=== PATIENT | male | born 1970 | race African-American/Black ===

== ENCOUNTER → 2016-12-04 | Outpatient (CLI) | payer OTHER ==
--- NOTE | 2016-12-04 15:29 | MR ---
EXAMINATION TYPE: MR lumbar spine wo/w con DATE OF EXAM: 12/04/2016 2:44 PM COMPARISON: 04/22/2014 HISTORY: LBP, stiffness, LLE radic x 2 years, prior surgery October 2013 CONTRAST: The patient was injected with 20 mL intravenous MultiHance gadolinium contrast. Multiplanar, MultiSpin echo imaging of the lumbar spine was performed. L1-L2: Normal disc appearance without desiccation. No herniation, protrusion or disc bulging. No ca nal stenosis is present. Foramina are patent bilaterally. L2-L3: Severe degenerative disc desiccation with degenerative endplate marrow change. Postoperative c hanges of decompressive laminectomy. Recurrent disc herniation is noted with effacement of the ventra l thecal sac. No evidence for central stenosis . Bilateral neural foraminal encroachment right greate r than left. Grade 1 retrolisthesis of L2 on L3 of 4 mm. L3-L4: Normal disc appearance without desiccation. No herniation, protrusion or disc bulging. No ca nal stenosis is present. Foramina are patent bilaterally. L4-L5: Moderate disc desiccation noted. Broad-based posterocentral disc bulge noted with effacement o f the ventral thecal sac. Mild right lateral recess stenosis suggested. Facet joint arthropathy resul ting in left greater than right foraminal encroachment. No evidence for central stenosis. L5-S1: Moderate disc desiccation. Mild posterior disc bulge. Minimal effacement ventral thecal sac. N o evidence of disc herniation. Facet joint arthropathy resulting in moderate bilateral foraminal encr oachment. Lumbar segments are intact. No paraspinal masses are identified. Conus medullaris has a normal appe arance. No pathologic enhancement. IMPRESSION: 1. Degenerative disc disease as discussed. 2. Postoperative changes at L2-3 with recurrent disc herniation. 3. Disc bulging and foraminal encroachment as discussed.
== END | disposition home or self-care (01) ==
LOC: RADMRIMAIN 13:55
PROVIDERS: ATTEND Internal Medicine
DX: M51.36 Other intervertebral disc degeneration, lumbar region (principal); M51.26 Other intervertebral disc displacement, lumbar region; Z98.890 Other specified postprocedural states
CPT/HCPCS: 72158; A9577

== ENCOUNTER → 2017-04-10 | Outpatient (CLI) | payer OTHER ==
--- NOTE | 2017-04-10 08:28 | CT ---
EXAMINATION TYPE: CT lumbar spine wo con DATE OF EXAM: 04/10/2017 COMPARISON: NONE HISTORY: Low back pain x4 years. Hx of laminectomy in 2014. No prior. Scanned by: LS and CS. CT DLP: 1532.[address] of the lumbar spine was performed. Bone and soft tissue window settings are submitted as well as coronal and sagittal reconstructions. L1-L2: Normal disc space height. No disc herniation protrusion or central stenosis. No facet joint arthropathy. No evidence for foraminal encroachment. L2-L3: Marked degenerative disc space narrowing. Vacuum changes. Marked sclerosis of the L2 and L3 ve rtebral segments. Retrolisthesis L3 on L4 measuring 5.6 mm. Laminectomy changes however given superim posed hypertrophic change recurrent central stenosis is difficult to exclude. L3-L4: Decompressive laminectomy changes. Mild posterior disc bulge. No evidence for disc herniation or protrusion. No central stenosis. Foramina are patent bilaterally. L4-L5: Moderate degenerative disc space narrowing. Broad-based disc bulge posteriorly with effacement of the ventral thecal sac. Suspect bilateral lateral recess stenosis. Mild central stenosis difficul t to exclude. Facet joint arthropathy noted with bilateral foraminal encroachment seen. L5-S1: Moderate degenerative disc space narrowing. Circumferential disc bulge greatest posterior cent rally and towards the right where there is right lateral recess stenosis. Right foraminal encroachmen t identified. Also left-sided foraminal encroachment. No evidence for central stenosis. Normal alignm ent. No paraspinal masses are identified. Lumbar segments are free of fracture. IMPRESSION: 1. Multilevel degenerative disc disease and spondylosis. 2. Marked degenerative change at L2-3 with retrolisthesis of L2 on L3 and associated hypertrophic janet nge. Laminectomy changes identified at this level however it is difficult to exclude recurrent centra l stenosis. 3. Disc bulging at L4-5 and L5-S1 resulting in lateral recess stenosis as discussed. Mild central shimon nosis at L4-5 also difficult to exclude.
== END | disposition home or self-care (01) ==
LOC: RADCTMAIN 07:46
PROVIDERS: ATTEND Neurological Surgery
DX: M48.07 Spinal stenosis, lumbosacral region (principal); M43.16 Spondylolisthesis, lumbar region; M51.36 Other intervertebral disc degeneration, lumbar region; M47.816 Spondylosis without myelopathy or radiculopathy, lumbar region
CPT/HCPCS: 72131

== ENCOUNTER 2017-06-03 15:52 | Emergency (ER) | payer OTHER ==
[2017-06-03 16:12] VITALS: BP 189/87; PULSE 89; RESP 18; TEMP 98.5
--- NOTE | 2017-06-03 18:12 | ED ---
General Adult HPI - General Chief complaint: Neck Pain/Injury Stated complaint: Neck and shoulder Pain Time Seen by Provider: 06/03/17 17:48 Source: patient, RN notes reviewed Mode of arrival: ambulatory Limitations: no limitations - History of Present Illness Initial comments: Patient 47-year-old male with significant past medical history for chronic back and neck pain. Patient does admit that he's had increased neck pain over the last month. States that he has followed the family doctor who gave him [place] along with muscle relaxant. Patient s patient does admit that is experienced numbness tingling down to the fourth and fifth digits of the left hand. He states this comes and goes. Patient states she's been trying to follow up orthopedics is waiting for an appointment. He denies any other complaints or associated symptoms. Denies any injury or trauma. Patient denies any recent fever, chills, shortness of breath, chest pain, abdominal pain, nausea or vomiting, headaches or visual changes, or any other complaints. - Related Data Home Medications Medication Instructions Recorded Confirmed Dapagliflozin Propanediol [Farxiga] 10 mg PO DAILY 02/23/15 02/23/15 Losartan Potassium 100 mg PO DAILY 02/23/15 02/23/15 Pregabalin [Lyrica] 150 mg PO BID 02/23/15 02/23/15 Tamsulosin HCl [Flomax] 0.4 mg PO DAILY 02/23/15 02/23/15 metFORMIN HCL [Glucophage Xr] 500 mg PO DAILY 02/23/15 02/23/15 Previous Rx's Medication Instructions Recorded Ibuprofen [Motrin] 800 mg PO Q6HR PRN #20 tab 02/23/15 Dexamethasone 0.75 mg PO DIRECTED #12 tablet 06/03/17 Allergies Allergy/AdvReac Type Severity Reaction Status Date / Time azithromycin Allergy Unknown Verified 06/03/17 16:12 Review of Systems ROS Statement: Those systems with pertinent positive or pertinent negative responses have been documented in the HPI. ROS Other: All systems not noted in ROS Statement are negative. Past Medical History Past Medical History: Diabetes Mellitus, Hypertension History of Any Multi-Drug Resistant Organisms: None Reported Past Surgical History: Orthopedic Surgery Additional Past Surgical History / Comment(s): right hand carpel tunnel, right elbow, right shoulder 2011. Back surgery Past Psychological History: No Psychological Hx Reported Smoking Status: Never smoker Past Alcohol Use History: Occasional Past Drug Use History: Marijuana General Exam - General Exam Comments Initial Comments: General: The patient is awake and alert, in no distress, and does not appear acutely ill. Neck: The neck is supple, there is no tenderness or JVD. Cardiovascular: There is a regular rate and rhythm. No murmur, rub or gallop is appreciated. Respiratory: Lungs are clear to auscultation, respirations are non-labored, breath sounds are equal. No wheezes, stridor, rales, or rhonchi. Musculoskeletal: Patient shows full range of motion. Normal appearance of the cervical, thoracic, lumbar spine. No step-offs deformities appreciated. Patient shows good range of motion all areas. Strength 5/5. Sensation is intact. Neurological: A&O x 3. CN II-XII intact, There are no obvious motor or sensory deficits. Coordination appears grossly intact. Speech is normal. Skin: Skin is warm and dry and no rashes or lesions are noted. Psychiatric: Normal mood and affect. Limitations: no limitations Course Vital Signs 06/03/17 16:10 Temperature 98.5 F Pulse Rate 89 Respiratory 18 Rate Blood Pressure 189/87 O2 Sat by Pulse 98 Oximetry Medical Decision Making - Medical Decision Making Patient will be given steroid Dosepak. He does admit that he is taking this in the past. He was advised that it may affect his blood sugars. Patient also advised that he may use the Flexeril that he has at home to help him sleep at night. Advised to follow-up with orthopedics or family doctor for further evaluation and MRI. Patient has declined x-rays here in the ER. Patient advised return if any symptoms increase or worsen. Disposition Clinical Impression: Cervical radiculopathy Disposition: HOME SELF-CARE Condition: Good Instructions: Cervical Radiculopathy (ED) Additional Instructions: Please use medication as discussed. Please follow-up with orthopedic/family doctor in the next 2 days of symptoms have not improved. Please return to emergency room if the symptoms increase or worsen or for any other concerns. Prescriptions: Dexamethasone 0.75 mg PO DIRECTED #12 tablet Referrals: Santiago Alicia MD [Primary Care Provider] - 1-2 days Maik Barron MD [STAFF PHYSICIAN] - 1-2 days Time of Disposition: 18:10
== END 2017-06-03 18:27 | disposition home or self-care (01) ==
LOC: EC 15:52
DX: M54.12 Radiculopathy, cervical region (principal); I10 Essential (primary) hypertension; E11.9 Type 2 diabetes mellitus without complications; Z79.84 Long term (current) use of oral hypoglycemic drugs; Z79.899 Other long term (current) drug therapy; Z88.1 Allergy status to other antibiotic agents; Z98.890 Other specified postprocedural states
CPT/HCPCS: 99283

== ENCOUNTER → 2017-06-28 | Outpatient (CLI) | payer OTHER ==
--- NOTE | 2017-06-28 16:08 | MR ---
EXAMINATION TYPE: MR cervical spine wo con DATE OF EXAM: 06/28/2017 COMPARISON: NONE HISTORY: Neck pain TECHNIQUE: Multiplanar, multisequence images of the cervical spine were acquired. C2-C3: No disc herniation or canal stenosis. No foraminal encroachment. C3-C4: Mild degenerative disc disease. There is uncovertebral joint hypertrophy bilaterally. No Canal stenosis. Mild bilateral foraminal encroachment greater on the left. C4-C5: Moderate to severe degenerative disc disease with diffuse disc broad-based bulging or protrusi on, facet arthropathy and uncovertebral joint hypertrophy. There is moderate to severe bilateral fora rachel encroachment. Mild central stenosis. C5-C6: Severe degenerative disc disease. There is uncovertebral joint hypertrophy bilaterally. There is moderate bilateral foraminal encroachment. No canal stenosis or focal herniation. Anterior osteoph ytic spur noted. C6-C7: Severe degenerative disc disease with broad-based disc bulging. There is moderate to severe bi lateral foraminal encroachment greater on the right with uncovertebral joint hypertrophy and cervical spondylosis. Borderline to mild central stenosis. C7-T1: No evidence for degenerative disc disease. No disc bulge/herniation or protrusion. No Canal stenosis. Foramina are patent bilaterally. Cervical segments are intact. There is normal alignment. Cervical spinal cord is of normal signal. Craniovertebral junction relationships are within normal limits. Slight curvature the spine noted. There is a right thyroid nodule measuring 1.4 cm IMPRESSION: 1. Multilevel degenerative disc disease with the most marked findings at C4-5 C5-6 and C6-C7 with pos terior spondylosis, uncovertebral joint hypertrophy and disc bulging or protrusion resulting in signi ficant multilevel foraminal encroachment. 2. Mild central stenosis C4-5 and borderline central stenosis C6-C7. 3. 1.4 cm right thyroid nodule.
== END | disposition home or self-care (01) ==
LOC: RADMRIMAIN 15:01
PROVIDERS: ATTEND Internal Medicine
DX: M48.02 Spinal stenosis, cervical region (principal); M50.31 Other cervical disc degeneration, high cervical region; M47.812 Spondylosis without myelopathy or radiculopathy, cervical region; M53.82 Other specified dorsopathies, cervical region; M50.221 Other cervical disc displacement at C4-C5 level
CPT/HCPCS: 72141

== ENCOUNTER → 2017-07-10 | Outpatient (CLI) | payer OTHER ==
--- NOTE | 2017-07-10 15:34 | XR ---
EXAMINATION TYPE: XR lumbar spine with bend/flex DATE OF EXAM: 07/10/2017 CLINICAL HISTORY: pain COMPARISON: 07/01/2013 TECHNIQUE: Frontal, lateral, and oblique images of the lumbar spine are obtained. FINDINGS: There is new severe degenerative disc space narrowing with vacuum disc and endplate scleros is at the L2-3 level. The remaining levels are within normal limits. There is grade 1 retrolisthesis of L2 on L3 measuring 7.5 mm. Ventral and dorsal spur formation seen. Facet joint arthropathy without foraminal encroachment. No compression fractures identified. IMPRESSION: Severe degenerative disc disease with grade 1 retrolisthesis L2 on L3 as discussed above. ICD 10 NO FRACTURE, INITIAL EVALUATION
== END | disposition home or self-care (01) ==
LOC: RADXRMAIN 14:51
PROVIDERS: ATTEND Neurological Surgery
DX: M43.16 Spondylolisthesis, lumbar region (principal); M51.36 Other intervertebral disc degeneration, lumbar region
CPT/HCPCS: 72114

== ENCOUNTER → 2017-07-10 | Outpatient (CLI) | payer OTHER ==
[2017-07-10 16:13] LABS: INR 1.1 (<1.2); Partial Thromboplastin Time 23.5 sec (22.0-30.0); Prothrombin Time 10.3 sec (9.0-12.0)
[2017-07-10 16:26] LABS: Anion Gap 9 mmol/L; Blood Urea Nitrogen 14 mg/dL (9-20); Carbon Dioxide 27 mmol/L (22-30); Chloride 103 mmol/L (98-107); Potassium 4.5 mmol/L (3.5-5.1); Sodium 139 mmol/L (137-145)
[2017-07-10 16:33] LABS: Appearance,Urine Clear (Clear); Bilirubin,Urine Negative (Negative); Blood,Urine Negative (Negative); Color,Urine Yellow; Glucose,Urine (UA) 4+ (Negative); Ketones,Urine Negative (Negative); Leukocyte Esterase,Urine Negative (Negative); PH, Urine 5.5 (5.0-8.0); Protein,Urine Negative (Negative); Specific Gravity,Urine 1.015 (1.001-1.035); Urobilinogen,Urine <2.0 mg/dL (<2.0)
[2017-07-10 16:50] LABS: Basophils % (A) 1 %; Eosinophils # (A) 0.2 k/uL (0-0.7); Eosinophils % (A) 4 %; HCT 38.3 % (39.0-53.0); HGB 12.5 gm/dL (13.0-17.5); Lymphocytes # (A) 1.7 k/uL (1.0-4.8); Lymphocytes % (A) 34 %; MCH 30.3 pg (25.0-35.0); MCHC 32.6 g/dL (31.0-37.0); Monocytes # (A) 0.4 k/uL (0-1.0); Monocytes % (A) 8 %; Neutrophils # (A) 2.5 k/uL (1.3-7.7); Neutrophils % (A) 50 %; Platelet Count 263 k/uL (150-450); RBC 4.12 m/uL (4.30-5.90); RDW 14.3 % (11.5-15.5)
[2017-07-11 17:12] LABS: Hemoglobin A1C 10.6 % (4.0-6.0)
[2017-07-11 17:39] LABS: Iron Saturation 28.04 (15.00-50.00)
== END | disposition home or self-care (01) ==
LOC: LABWHC1 15:34
PROVIDERS: ATTEND Internal Medicine
DX: Z01.812 Encounter for preprocedural laboratory examination (principal); D64.9 Anemia, unspecified; E11.9 Type 2 diabetes mellitus without complications; I10 Essential (primary) hypertension; M54.5 Low back pain
CPT/HCPCS: 36415; 80051; 81003; 82565; 83036; 83540; 83550; 84520; 85025; 85610; 85730

== ENCOUNTER → 2018-07-15 | Outpatient (CLI) | payer OTHER ==
[2018-07-15 16:12] LABS: Basophils % (A) 0 %; Eosinophils # (A) 0.2 k/uL (0-0.7); Eosinophils % (A) 3 %; HCT 40.6 % (39.0-53.0); Lymphocytes # (A) 2.3 k/uL (1.0-4.8); Lymphocytes % (A) 33 %; MCH 30.2 pg (25.0-35.0); MCV 94.4 fL (80.0-100.0); Mean Platelet Volume 7.8; Monocytes # (A) 0.4 k/uL (0-1.0); Monocytes % (A) 6 %; Neutrophils # (A) 3.9 k/uL (1.3-7.7); Neutrophils % (A) 55 %; Platelet Count 264 k/uL (150-450); RDW 14.7 % (11.5-15.5); WBC 7.1 k/uL (3.8-10.6)
[2018-07-16 01:15] LABS: Albumin 4.5 g/dL (3.80-4.90); Albumin/Globulin Ratio 1.61 (1.60-3.17); Anion Gap 8.2 mmol/L (4.00-12.00); Carbon Dioxide 28.8 mmol/L (21.6-31.8); Globulin 2.8 g/dL (1.6-3.3); Potassium 4.2 mmol/L (3.5-5.5); Total Bilirubin 0.4 mg/dL (0.3-1.2); Total Protein 7.3 g/dL (6.2-8.2)
[2018-07-16 01:22] LABS: T4, Free (Free Thyroxine) 1.4 ng/dL (0.80-1.80)
[2018-07-16 01:45] LABS: Hemoglobin A1C 10.2 % (4.0-6.0)
== END | disposition home or self-care (01) ==
LOC: LABWHC1 15:36
PROVIDERS: ATTEND Internal Medicine
DX: E11.9 Type 2 diabetes mellitus without complications (principal); E29.1 Testicular hypofunction; R53.83 Other fatigue
CPT/HCPCS: 36415; 80053; 83036; 84402; 84403; 84439; 84443; 84481; 85025

== ENCOUNTER → 2018-12-04 | Outpatient (CLI) | payer OTHER ==
[2018-12-04 17:57] LABS: African American GFR (CKD) 101.3 (60.0-200.0); Albumin 4.2 g/dL (3.80-4.90); Albumin/Globulin Ratio 1.62 (1.60-3.17); Calcium 9.1 mg/dL (8.7-10.3); Globulin 2.6 g/dL (1.6-3.3); Potassium 4.4 mmol/L (3.5-5.5); Total Bilirubin 0.5 mg/dL (0.3-1.2); Total Protein 6.8 g/dL (6.2-8.2)
[2018-12-04 20:58] LABS: Hemoglobin A1C 7.7 % (4.0-6.0)
== END | disposition home or self-care (01) ==
LOC: LABWHC1 14:41
PROVIDERS: ATTEND Internal Medicine
DX: E11.9 Type 2 diabetes mellitus without complications (principal)
CPT/HCPCS: 36415; 80053; 83036

== ENCOUNTER → 2019-07-10 | Outpatient (CLI) | payer OTHER ==
[2019-07-11 00:05] LABS: Chol/HDL Ratio 2.33; LDL Cholesterol,Calculated 72.6 mg/dL (0.0-131.0); VLDL Calculation 11.4 mg/dL (5.00-40.00)
[2019-07-11 02:41] LABS: Hemoglobin A1C 7.9 % (4.0-6.0)
== END | disposition home or self-care (01) ==
LOC: LABWHC1 15:21
PROVIDERS: ATTEND Internal Medicine
DX: I10 Essential (primary) hypertension (principal); E11.9 Type 2 diabetes mellitus without complications; E29.1 Testicular hypofunction; N40.0 Benign prostatic hyperplasia without lower urinary tract symptoms; Z12.5 Encounter for screening for malignant neoplasm of prostate
CPT/HCPCS: 80061; 84403; 83036; 36415; G0103

== ENCOUNTER → 2019-10-30 | Outpatient (CLI) | payer OTHER ==
[2019-10-30 15:19] LABS: HCT 37.7 % (39.0-53.0); HGB 12.4 gm/dL (13.0-17.5); MCH 31.5 pg (25.0-35.0); MCHC 32.9 g/dL (31.0-37.0); MCV 95.7 fL (80.0-100.0); Mean Platelet Volume 8.5; Platelet Count 243 k/uL (150-450); RBC 3.94 m/uL (4.30-5.90); RDW 13.9 % (11.5-15.5); WBC 4.3 k/uL (3.8-10.6)
[2019-10-30 15:54] LABS: Eosinophils # (M) 0.26 k/uL (0-0.7); Hypochromasia (M) Present; Lymphocytes # (M) 1.76 k/uL (1.0-4.8); Monocytes # (M) 0.47 k/uL (0-1.0); Neutrophils # (M) 1.81 k/uL (1.3-7.7); Neutrophils % (M) 42 %; Nucleated Red Blood Cells 0 /100 WBC (0-0); Total Cells Counted 100
[2019-10-30 17:00] LABS: Erythrocyte Sedimentation Rate 18 mm/hr (0-15)
[2019-10-30 18:30] LABS: African American GFR (CKD) 100.6 (60.0-200.0); Anion Gap 5.3 mmol/L (4.00-12.00); C Reactive Protein 1.6 mg/dL (0.0-0.8); Carbon Dioxide 26.7 mmol/L (21.6-31.8); Non-African American GFR(CKD) 86.8 (60.0-200.0); Potassium 4.3 mmol/L (3.5-5.5)
== END | disposition home or self-care (01) ==
LOC: LABWHC1 14:25
PROVIDERS: ATTEND Podiatrist Foot & Ankle Surgery
DX: L03.031 Cellulitis of right toe (principal); L02.611 Cutaneous abscess of right foot
CPT/HCPCS: 36415; 80048; 85025; 85652; 86140

== ENCOUNTER → 2019-12-02 | Outpatient (CLI) | payer OTHER ==
[2019-12-02 10:55] LABS: African American GFR (CKD) >90 (>60 ml/min/1.73 sqM); Anion Gap 5 mmol/L; Blood Urea Nitrogen 18 mg/dL (9-20); Calcium 8.7 mg/dL (8.4-10.2); Carbon Dioxide 27 mmol/L (22-30); Chloride 106 mmol/L (98-107); Glucose 219 mg/dL (74-99); Non-African American GFR(CKD) >90 (>60 ml/min/1.73 sqM); Potassium 4.4 mmol/L (3.5-5.1); Sodium 138 mmol/L (137-145)
--- NOTE | 2019-12-02 16:49 | MR ---
EXAMINATION TYPE: MR foot RT wo/w con DATE OF EXAM: 12/02/2019 COMPARISON: None HISTORY: L97.512 Chronic Ulcer Rt Toe CONTRAST: Standard multiplanar, multisequence MRI departmental protocol utilizing 11.5 mL intravenous Gadavist gadolinium contrast. FINDINGS: The second digit of the right foot demonstrates anterior subcutaneous irregularity and plan tar sided soft tissue edema from the distal toe to the level of the proximal phalanx. There is T2 hyp erintense bone marrow edema and loss of cortex of the second digit distal phalanx (501:20, 901:17). Some mild soft tissue edema of the great toe is also seen on the plantar aspect, with no bony abnorma lity. Degenerative changes of the first digit metatarsal phalangeal and interphalangeal joints are se en with subchondral cysts. IMPRESSION: Osteomyelitis of the second digit distal phalanx associated with ulceration. No evidence of abscess.
== END | disposition home or self-care (01) ==
LOC: RADMRIMAIN 09:21
PROVIDERS: ATTEND Podiatrist Foot & Ankle Surgery
DX: L97.512 Non-pressure chronic ulcer of other part of right foot with fat layer exposed (principal)
CPT/HCPCS: 80048; 36415; 73720; A9585

== ENCOUNTER → 2019-12-15 | Outpatient (CLI) | payer OTHER ==
--- NOTE | 2019-12-15 13:52 | MM ---
Reason for exam: clinical finding. MG Diagnostic Mammo w CAD DENISHA Bilateral CC and MLO view(s) were taken. There are scattered fibroglandular densities. Retroareolar increased density. These results were verbally communicated with the patient and result sheet given to the patient on 12/15/19. ASSESSMENT: Incomplete: need additional imaging evaluation, BI-RAD 0 RECOMMENDATION: Ultrasound of the left breast.
--- NOTE | 2019-12-15 13:56 | USB ---
Reason for exam: additional evaluation requested from abnormal screening. US Breast Workup Limited LT Left limited breast ultrasound including focal area of concern, retroareolar and axilla demonstrates a 5.1 x 4.4 x 1.3cm irregular, solid, hypoechoic lesion at the retroareola. Scanned right breast for comparison. These results were verbally communicated with the patient and result sheet given to the patient on 12/15/19. ASSESSMENT: Suspicious, BI-RAD 4 RECOMMENDATION: Ultrasound core biopsy of the left breast. Manage patient on a clinical basis. Called Dr. Alicia's office with mammographic findings and has scheduled an appointment for the patient for 12/24/19 at 3:[address] Amezquita. PRELIMINARY REPORT CALLED AND FAXED TO DR. AMEZQUITA ON 12/15/19.
== END | disposition home or self-care (01) ==
LOC: RADMAMWWP 08:25
PROVIDERS: ATTEND Internal Medicine
DX: R92.8 Other abnormal and inconclusive findings on diagnostic imaging of breast (principal); N63.20 Unspecified lump in the left breast, unspecified quadrant
CPT/HCPCS: 77066

== ENCOUNTER → 2019-12-18 | Day surgery (SDC) | payer OTHER ==
[2019-12-16 11:47] VITALS: BMI 32.5
[~2019-12-18] MED LIST: LIDOCAINE 1% INJ 10MG/ML (20 ML MDV) SQ ONE
[2019-12-18 14:26] VITALS: BP 138/75; PULSE 78; RESP 16; TEMP 98.1
--- NOTE | 2019-12-21 12:32 | IR ---
EXAMINATION TYPE: IR cvc insert >=5 years DATE OF EXAM: 12/18/2019 COMPARISON: NONE CLINICAL HISTORY: Infection. Need for long-term antibiotics. ORDNANCE ENGINEER: Dr. Laurel Tenorio PROCEDURE: The procedure was discussed with the patient. The risks, complications, benefits, and alternatives we re discussed and any questions were answered. Informed consent was obtained. Maximal barrier technique utilized. Patient placed supine and the skin overlying the left basilic vei n was localized with ultrasound and noted to be compressible and patent. An ultrasound image was obt ained and submitted on the patient's chart. Sterile technique utilized with the ultrasound machine. T he skin overlying was prepped and draped and Lidocaine used for local anesthesia. Access was gained t o the vein under ultrasound guidance with a 21 gauge needle and a 0.018 inch wire was advanced. A ski n jeison was made with a scalpel. Access site was dilated with Peel-Away sheath. 5 FR single lumen cath eter tailored to the appropriate length of 44 cm and advanced such that the distal tip is at the cavo atrial junction. Spot image was obtained verifying PICC placement. Catheter was fixed to the skin and a sterile dressing was placed following hemostasis. Catheter was aspirated and flushed with saline. Patient was discharged from the radiology department in stable condition without media complication. Fluoro time: 0.3 minutes Fluoroscopic images obtained: 20 IMPRESSION: Status post ultrasound-guided and fluoroscopic-guided PICC placement, ready for use.
== END ==
LOC: CATHCVL 14:09
PROVIDERS: ATTEND Radiology Diagnostic Radiology
DX: M86.9 Osteomyelitis, unspecified (principal)
CPT/HCPCS: 36573; C1751; C1769; J2001

== ENCOUNTER → 2020-03-28 | Outpatient (CLI) | payer OTHER ==
[2020-03-28 08:26] VITALS: BP 142/89; PULSE 89; RESP 18; TEMP 98.8
--- NOTE | 2020-03-28 09:06 | P.PAINCN ---
History of Present Illness - Reason for Consult Consult date: 03/28/20 - History of Present Illness This is a 49-year-old patient referred by Dr. Alicia with a chief complaint of low back pain primarily right sided low back pain going into buttocks back of his legs to his knees. Patient has a long-standing low back pain history including a laminectomy at L2-L3 and doesn't 14 a spinal fusion L2-L3 in 2018. 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 Pain is located primarily in the upper buttock area with radiation to the knees described as sharp and stabbing. Pain is made worse rising from a seated position and going upstairs. Going downstairs is not a problem. There are no alleviating factors. There is no temporal nature of the pain. Pain Saroj 8 out of 10, at best a 5 out of 10, at its worst a 10 out of 10. As mentioned above patient is an multiple surgeries at L2-L3 which did help with this pain but now his pain is coming back. He has tried numerous medications including Zanaflex, meloxicam, Motrin, diclofenac, as well as Toradol shots every few weeks which have provided no benefit. He did mention he takes his Beth here and there are which does help with this pain and is wondering if he can have his medications. He has been put on tramadol 50 mg 4 times a day but this did not help him at all. In terms of injections he does mention an epidural many years ago which did help. He has done physical therapy prior to the surgery but he had to quit due to the pain. As also tried lidocaine patches and massage with no help. Patient also denies new-onset weakness, bowel/bladder incontinence, or any other signs or symptoms of cauda equina syndrome. There are no signs of acute intoxication, and no indications of medication diversion or overuse. Patient notes that pain worsens significantly with [], and improves with [] In addition to above, 13-point review of systems is also negative for chest pain, shortness of breath, changes in vision, changes in hearing, new onset weakness, abdominal pain, diarrhea, extreme fatigue, malaise, fever, skin changes, homicidal or suicidal ideation, or bowel or bladder incontinence. Physical exam: Vital Signs: Reviewed in EMR GENERAL: Well appearing, in no acute distress PSYCH: Mood and affect is appropriate. Awake, alert, and oriented SKIN: Skin color, texture, turgor normal, no rashes or lesions HEENT: Normocephalic, atraumatic. EOM intact CV: No pedal edema RESP: Respirations are unlabored, no audible wheezing GI: Abdomen non-distended MUSCULOSKELETAL: Bilateral upper and lower extremity strength is normal and symmetric. No atrophy or tone abnormalities are noted. Rises from chair with difficulty Lumbar spine: Straight leg raising in the sitting position is negative for radicular pain. No pain to palpation over the lumbar spine and paraspinous muscles. Positive for pain with facet loading and back extension/rotation. Decreased flexion and extension due to pain Buttocks: Has pain to palpation over the PSIS, Ranjan test is positive bilaterally Extremities: Peripheral joint ROM is full and pain free without obvious instability or laxity in all four extremities. No edema or skin discolorations noted. Gait: Gait is antalgic NEUR: Bilateral upper and lower extremity coordination and muscle stretch reflexes are physiologic and symmetric. Negative clonus. No loss of sensation is noted. Cranial nerves are grossly intact. Imaging: Lumbar MRI 2017 L2-L3: Severe degenerative disc desiccation with degenerative endplate marrow change. Postoperative changes are decompressive laminectomy. Recurrent disc herniation is noted with effacement of the ventral thecal sac. Bilateral neural foraminal encroachment right greater than left. Grade 1 retrolisthesis of L2 on L3 for 4 mm. L3 her for: Essentially normal. L4-L5: Moderate disc desiccation noted. Broad-based posterior central disc bulge with noted effacement of the ventral thecal sac. Mild right lateral recess stenosis suggested. Facet joint arthropathy resulting in left greater than right neural foraminal encroachment. No evidence of central canal stenosis. L5-S1 moderate disc herniation. Mild posterior disc bulge. Minimal effacement of the ventral thecal sac. Facet joint arthropathy resulting in moderate bilateral foraminal encroachment Assessment: 1. Bilateral sacroiliitis 2. Lumbar spondylosis Plan: 1. Explanation: Diagnoses, prognoses, and multiple treatment options including but not limited to physical therapy, interventional therapies, medication management and surgery were discussed with the patient and all questions were answered to the patient's satisfaction. 2. Investigations: Severe lumbar MRI in the future if sacroiliac joint injections are helpful 3. Counseling: The patient was counseled for 3 minutes on EXERCISE. Specifically, the patient was instructed regarding the importance of exercise in the context of both chronic pain and overall health. 4. Procedures: Proceed with bilateral sacroiliac joint injection 5. Consultations: None 6. Medications: She was asking for Purcell as this is helping with work. I advised him to go back to his primary care doctor as he was prescribing her tramadol on the past 7. Disposition: For sacroiliac joint injections. If these do not help and we will consider ordering lumbar MRI to assess for any nerve impingement or facet hypertrophy Past Medical History Past Medical History: Diabetes Mellitus Additional Past Medical History / Comment(s): infection in bone of 2nd toe rt foot-6 WEEKS AGO-HAD IV ANTIBIOTICS FOR 8 WEEKS- STATES INFECTION RESOLVED. BACK AND SHOULDER PAIN History of Any Multi-Drug Resistant Organisms: None Reported Past Surgical History: Back Surgery, Orthopedic Surgery Additional Past Surgical History / Comment(s): right hand carpel tunnel, right elbow, right shoulder 2011. Back surgery Past Anesthesia/Blood Transfusion Reactions: No Reported Reaction Smoking Status: Former smoker - Past Family History Mother Family Medical History: No Reported History Medications and Allergies Home Medications Medication Instructions Recorded Confirmed Type Ibuprofen [Motrin] 800 mg PO Q6HR PRN #20 tab 02/23/15 03/28/20 Rx Tamsulosin HCl [Flomax] 0.4 mg PO DAILY 02/23/15 03/28/20 History metFORMIN HCL [Glucophage Xr] 500 mg PO DAILY 02/23/15 03/28/20 History Cannabidiol (Cbd) [Epidiolex] 1 dose TOPICAL DAILY PRN 12/16/19 03/28/20 History Meloxicam 15 mg PO DAILY 12/16/19 03/28/20 History Multivitamins, Thera [Multivitamin 1 tab PO DAILY 12/16/19 03/28/20 History (formulary)] glipiZIDE [Glucotrol] 10 mg PO AC-BID 12/16/19 03/28/20 History tiZANidine [Zanaflex] 4 mg PO Q8HR PRN 03/23/20 03/28/20 History traMADol HCL [Ultram] 50 mg PO DAILY PRN 03/23/20 03/28/20 History valACYclovir [Valtrex] 500 mg PO BID 03/23/20 03/28/20 History Baclofen 10 mg PO TID 03/28/20 03/28/20 History Diclofenac Sodium [Voltaren] 75 mg PO BID 03/28/20 03/28/20 History Allergies Allergy/AdvReac Type Severity Reaction Status Date / Time azithromycin Allergy Nausea & Verified 03/23/20 14:36 Vomiting PQRS Measure Charge Sheet Measure #226: Tobacco Use: Screen & Cessation Intervention: Pt not a tobacco user Measure #111: Pneumonia Vaccination: Pneumococcal vaccine NOT administered or previously given Measure #47: Advance Care Plan: Advance care planning discussed & documented, pt chose/unable to give Measure #412: Opioid Treatment Agreement: No documentation of signed opioid treatment agreement Measure #408: Opioid Therapy Follow-up Evaluation: Patient had NO f/u eval minimum every 3 months during opioid therapy Measure #131: Pain Assessment & Follow-up: Pain positive & plan documented, Follow-up scheduled Measure #431: Unhealthy Alcohol Use Preventative Care & Scrn: Patient not identified as an unhealthy alcohol user PQRS Narrative: Smoking Status Never smoker Pain Intensity [Back] 6 Scale Used Numeric (1 - 10) Hx Alcohol Use (MH) Yes Home Medications: Ambulatory Orders Ibuprofen [Motrin] 800 mg PO Q6HR PRN #20 tab 02/23/15 Tamsulosin HCl [Flomax] 0.4 mg PO DAILY 02/23/15 metFORMIN HCL [Glucophage Xr] 500 mg PO DAILY 02/23/15 Cannabidiol (Cbd) [Epidiolex] 1 dose TOPICAL DAILY PRN 12/16/19 Meloxicam 15 mg PO DAILY 12/16/19 Multivitamins, Thera [Multivitamin (formulary)] 1 tab PO DAILY 12/16/19 glipiZIDE [Glucotrol] 10 mg PO AC-BID 12/16/19 tiZANidine [Zanaflex] 4 mg PO Q8HR PRN 03/23/20 traMADol HCL [Ultram] 50 mg PO DAILY PRN 03/23/20 valACYclovir [Valtrex] 500 mg PO BID 03/23/20 Baclofen 10 mg PO TID 03/28/20 Diclofenac Sodium [Voltaren] 75 mg PO BID 03/28/20
== END | disposition home or self-care (01) ==
LOC: PNWHC3 08:06
PROVIDERS: ATTEND Anesthesiology
DX: M47.816 Spondylosis without myelopathy or radiculopathy, lumbar region (principal); M46.1 Sacroiliitis, not elsewhere classified; Z88.1 Allergy status to other antibiotic agents; Z79.891 Long term (current) use of opiate analgesic; Z79.899 Other long term (current) drug therapy; Z79.84 Long term (current) use of oral hypoglycemic drugs
CPT/HCPCS: 99211

== ENCOUNTER 2020-04-14 12:44 | Day surgery (SDC) | payer OTHER ==
[2020-04-12 13:38] VITALS: BMI 33.1
[2020-04-14 13:06] VITALS: TEMP 98.9
[2020-04-14 13:12] LABS: Glucose,Whole Blood 297 mg/dL (75-99)
[2020-04-14] MEDS ORDERED: INSULIN ASPART (NovoLOG) 100 UNIT/ML VIAL SQ ONE (13:20)
[2020-04-14] MEDS ORDERED: ROPIVACAINE 5MG/ML 20ML VIAL ONE (13:34)
[2020-04-14] MEDS ORDERED: TRIAMCINOLONE ACETONIDE 40 MG/ML 1 ML VIAL ONE (13:34)
[2020-04-14] MEDS ORDERED: IOPAMIDOL M200 10 ML VIAL ONE (13:34)
--- NOTE | 2020-04-14 13:49 | P.PCN ---
Date of Procedure: 04/14/20 Description of Procedure: Preoperative diagnoses: bilateral sacroilitis Postoperative diagnoses: bilateral sacroilitis. Procedure: bilateral sacroiliac joint steroid injection under fluoroscopic guidance. Surgeon: Jhon Peraza MD Anesthesia: [2 mL of 1% lidocaine and moderate sedation per hospital guidelines], Fluoroscopy was used for the procedure and fluoroscopic images were saved to the radiology portion of the patient's chart. EBL: None Procedure indication: The patient had a history of severe chronic low back pain, diagnosed with sacroiliitis unresponsive to conservative treatment. Procedure description: The patient was seen and identified in the preoperative holding area, risks and benefits and alternative of the procedure and possible complications discussed with the patient, and patient agreed with the preceding, patient signed the consent, an IV was started, and vital signs were monitored and were stable throughout the procedure, patient was placed in the prone position on table and the lumbosacral area was prepped and draped with a sterile fashion, vital signs were closely monitored during the procedure, the fluoroscopy camera was placed in the contralateral oblique view on the bilateral sacroiliac joint and the lower part of the joint was identified . Then the skin and subcutaneous tissue was anesthetized using 2 mL of 1% lidocaine then a 22- gauge Quincke-type spinal needle advanced slowly under fluoroscopy and placed in the posterior and inferior border of the right sacroiliac joint, placement confirmed with AP and lateral view, and after appropriate needle placement confirmed and after negative aspiration for heme, 1 mL of Isovue 200 was injected revealing intra-articular spread. Then a solution consisting of 2 ml of ropivacaine 0.5% and 20 mg of Kenalog injected after negative aspiration, no paresthesia during the injection, no resistance to injection, and the needle was removed. The procedure was then repeated on the left side. Total of 40 mg of Kenalog was used for the procedure. Patient tolerated the procedure well without any complication. The patient was returned to supine position after the back was cleaned and a Band-Aid applied, the patient was transported to recovery room in stable condition and monitored for 30 minutes before being discharged home. The patient will follow up for repeat procedure in 2-4 weeks
[2020-04-14 14:21] LABS: Glucose,Whole Blood 247 mg/dL (75-99)
[2020-04-14 14:26] VITALS: BP 168/94; PULSE 83; RESP 18
--- NOTE | 2020-04-14 14:28 | FL ---
EXAMINATION TYPE: FL guided pain mgmt statistic DATE OF EXAM: 04/14/2020 FLUOROSCOPY Fluoroscopy time of 5 seconds was used during bilateral SI joint injection. 3 image/s document/s the procedure.
== END 2020-04-14 14:29 | disposition home or self-care (01) ==
LOC: ORPAIN 12:44
PROVIDERS: ATTEND Anesthesiology
DX: G89.29 Other chronic pain (principal); M46.1 Sacroiliitis, not elsewhere classified; E11.9 Type 2 diabetes mellitus without complications; Z88.1 Allergy status to other antibiotic agents
CPT/HCPCS: J3301; Q9966; J2795; G0260

== ENCOUNTER 2020-05-26 06:34 | Day surgery (SDC) | payer OTHER ==
[2020-05-23 09:07] VITALS: BMI 31.8
[~2020-05-26 06:34] MED LIST changes: +LACTATED RINGERS 1,000 ML IV SCH; -LIDOCAINE 1% INJ 10MG/ML (20 ML MDV) SQ ONE
[2020-05-26 06:52] VITALS: RESP 16; TEMP 97.6
[2020-05-26 06:54] LABS: Glucose,Whole Blood 166 mg/dL (75-99)
[2020-05-26] MEDS ORDERED: methylPREDNISolone ACETATE 40 MG/ML 1 ML VIAL ONE (07:23)
[2020-05-26] MEDS ORDERED: ROPIVACAINE 5MG/ML 20ML VIAL ONE (07:23)
--- NOTE | 2020-05-26 07:36 | P.PCN ---
Date of Procedure: 05/26/20 Procedure(s) Performed: Procedure= bilateral sacroiliac joints steroid injection under fluoroscopy guidance (fluoroscopy image stored on file in the radiology Department ) Preoperative diagnosis= 1-sacroiliitis 2-lumbar facet arthropathy Postoperative diagnosis=Same as preop Diagnosis . Complication = none Condition= stable Anesthesia= local infiltration with her primary care 0.5% 4 mL. Indication for the procedure= patient complaining of low back pain , examination was positive for severe tenderness over the sacroiliac joints bilaterally and patient diagnosed with sacroiliitis, for this reason he was good candidate for sacroiliac joint steroid injection. Description of the procedure= procedure risk and benefits discussed with the patient, including but not limited, risk of infection and bleeding, and ALLERGIC reaction to the medication and not complete pain relief and patient agreed with the preceding patient taken to the operating room, placed in prone position or standard monitors applied to the patient then back prepped with chlorhexidine 3 times , Then under strict sterile technique, first I did the right sacroiliac joint the which was identified under fluoroscopy guidance been local infiltration of the skin and subcu interstitial with lidocaine 1% then 22-gauge Quincke Needle advanced slowly under fluoroscopy and placed in the right sacroiliac joint needle placement confirmed with AP and oblique and lateral view and after appropriate needle placement confirmed and after negative aspiration, or heme , then Ropivacaine 0.5% 3 mL, and 20 mg of Depo-Medrol mixed together and injected in the right sacroiliac joint after negative aspiration patient tolerated the procedure well without any complication. Then the left sacroiliac joint steroid injection done under strict sterile technique local infiltration of the skin and subcu interstitial at the location of the left sacroiliac joint then a 22-gauge Quincke Needle advanced slowly under fluoroscopy time placed in the left sacroiliac joint, needle placement confirmed with AP and oblique and lateral view then after appropriate needle placement confirmed and after negative aspiration 0.5% Marcaine 3 mL and 20 mg of Depo-Medrol injected in the left sacroiliac joint after negative aspiration patient tolerated the procedure well that any complications and she will follow up in clinic 3 weeks
--- NOTE | 2020-05-26 07:47 | FL ---
EXAMINATION TYPE: FL guided pain mgmt statistic DATE OF EXAM: 05/26/2020 CLINICAL HISTORY: Bilateral sacroiliac joint pain. TECHNIQUE: Fluoroscopy. COMPARISON: None. FINDINGS: Fluoroscopic guidance was provided during pain relief procedure performed by Dr. Chu . A total of 10 seconds of fluoroscopic time was utilized during the procedure and two spot images a re acquired. Images acquired shows needle localization at level of bilateral sacroiliac joints. IMPRESSION: As Above.
[2020-05-26 07:57] VITALS: BP 161/99; PULSE 74
== END 2020-05-26 08:06 | disposition home or self-care (01) ==
LOC: ORPAIN 06:34
PROVIDERS: ATTEND Specialist
DX: M46.1 Sacroiliitis, not elsewhere classified (principal); M47.896 Other spondylosis, lumbar region; E11.9 Type 2 diabetes mellitus without complications; Z88.1 Allergy status to other antibiotic agents
CPT/HCPCS: J1030; J2795; G0260

== ENCOUNTER → 2020-06-08 | Outpatient (CLI) | payer OTHER ==
[2020-06-08 08:11] VITALS: BP 161/90; PULSE 86; RESP 18; TEMP 98.2
--- NOTE | 2020-06-08 08:25 | P.PN ---
Subjective Progress Note Date: 06/08/20 This is a 50-year-old gentleman with history of 2 back surgeries with hardware and lumbar fusion the last one was done in 2018. The patient was doing well after the surgery up until a few months ago when he started to feel pain across his lower back with radiation to the thighs posteriorly and cramps in his lower back and in his hamstrings. The patient has been using marijuana to help his pain and occasionally tramadol or [place] from his primary care physician. He received bilateral sacroiliac joint steroid injection in our clinic which gave him short period of pain relief however his pain is still intense in his lower back. The patient still works full-time. Patient denies new-onset weakness, bowel/bladder incontinence, or any other signs or symptoms of cauda equina syndrome. There are no signs of acute intoxication, and no indications of medication diversion or overuse. In addition to above, 13-point review of systems is also negative for chest pain, shortness of breath, changes in vision, changes in hearing, new onset weakness, abdominal pain, diarrhea, extreme fatigue, malaise, fever, skin changes, homicidal or suicidal ideation, or bowel or bladder incontinence. Vital Signs: Reviewed in EMR Gen: AAOx3, NAD HEENT: PERRLA,hearing grossly normal Pulm: resp unlabored Neck: supple, trachea midline Neuro exam of the lower extremities: Normal muscle strength bilaterally Straight leg raising test: Kit's test: Range of motion of the lumbar spine: Facet loading test: Tenderness in the paravertebral musculature: Positive tenderness in the lumbar paravertebral musculature more on the left side than the right side Neuro: CN II-XII grossly intact, Imaging: Reviewed in EMR/chart Assessment: Lumbar postlaminectomy pain syndrome Lumbar spondylosis without myelopathy Plan: 1. Explanation: Opioid and psychological risk scores were reviewed. Diagnoses, prognoses, and multiple treatment options including but not limited to physical therapy, interventional therapies, adjuvant medical therapies, narcotic medication therapies, and surgery were discussed with the patient and all questions were answered to the patient's satisfaction. 2. Opioid agreement: Signed with the patient and the patient is warned not to use opioids while driving or before driving and not to combine opioids with benzodiazepines or alcohol. 3. Counseling: The patient was counseled extensively on SMOKING CESSATION, BODY MASS INDEX, EXERCISE. Specifically, the patient was instructed regarding the importance of smoking cessation, obesity, and exercise in the context of both chronic pain and overall health. 4. Procedures: Schedule for diagnostic lumbar medial branch block beneath the fusion level. 5. Consultations: None 6. Investigations: None 7. Medications: None. The patient uses marijuana. 8. Disposition: Return to the above-mentioned procedure as soon as possible 9. Maps were reviewed and were appropriate. Objective - Vital Signs Vital signs: Vital Signs Temp 98.2 F 06/08/20 08:07 Pulse 86 06/08/20 08:07 Resp 18 06/08/20 08:07 BP 161/90 06/08/20 08:07 Pulse Ox 99 06/08/20 08:07
== END | disposition home or self-care (01) ==
LOC: PNWHC3 08:00
PROVIDERS: ATTEND Anesthesiology
DX: M96.1 Postlaminectomy syndrome, not elsewhere classified (principal); M47.816 Spondylosis without myelopathy or radiculopathy, lumbar region
CPT/HCPCS: 99211

== ENCOUNTER → 2020-06-24 | Day surgery (SDC) | payer OTHER ==
[2020-06-23 12:54] VITALS: BMI 30.7
[~2020-06-24] MED LIST changes: +LIDOCAINE 1% (10MG/ML) FOR IV START INTRADERMA ONE; +MIDAZOLAM 2 MG/2 ML VIAL ONE; +ROPIVACAINE 5MG/ML 20ML VIAL ONE; +TRIAMCINOLONE ACETONIDE 40 MG/ML 1 ML VIAL ONE
[2020-06-24 13:35] VITALS: TEMP 97.8
[2020-06-24 13:44] LABS: Glucose,Whole Blood 120 mg/dL (75-99)
--- NOTE | 2020-06-24 14:25 | P.PCN ---
Date of Procedure: 06/24/20 Surgeon: Yeimi Salvador Pathology: none sent Condition: stable Disposition: PACU Description of Procedure: PREOPERATIVE DIAGNOSIS : 1- Lumbar spondylosis with Facet Arthropathy without myelopathy . 2- Lumber degenerative disc disease3-postlaminectomy pain syndrome POSTOPERATIVE DIAGNOSIS: Same as above PROCEDURE: Diagnostic bilateral L4 -5 , and L5-S1 medial branch block under fluoroscopy Physician: Yeimi Salvador MD ANESTHESIA: Local with 1% lidocaine; and IV moderate conscious sedation by the anesthesia Department . EBL: Negligible COMPLICATION: None. PROCEDURE INDICATION: Chronic low back pain secondary to Facet arthropathy unresponsive to conservative treatment. PROCEDURE DESCRIPTION: the patient was seen and identified in the preop holding area , risks and benefits and possible complications of the procedure and alternatives were discussed with the patient, and the patient agreed to proceed with the procedure and signed the consent. IV was started and vital signs monitored during the procedure and fluoroscopy was used to maximize the benefit and accuracy of the needle placement, sedation was given to decrease patient anxiety, patient was taken to the procedure room and placed in prone position vital signs monitored. The patient was brought into the procedure room and placed in prone position. Skin was prepped with Chloraprep and draped in a sterile manner. Lidocaine 1% was used to numb the skin up at the target points that were chosen as follows: at the L5-S1 level which corresponds to the dorsal ramus of L5 the target points were at the superior medial aspect of the sacral ala on each side of the spine on the AP view of fluoroscopy, and for the L3 and L4 medial branches the target points were the connection between the transverse process and the superior to go process of L4 and L5 respectively on the oblique views of fluoroscopy. I used 22-gauge 3.5 inch Quincke spinal needles for this procedure and after contacting bon at the target points mentioned above I injected 1 mL of a mixture of 5 mls Ropivacaine 0.5% PF and 20 mg of Kenalog . Patient tolerated procedure well. At the end of the procedure the needles removed and a bandage applied after the skin was cleaned with the cleaning solution. patient was then taken to the recovery room in stable condition and monitored in the recovery room for 20-30 minutes and discharged home in stable condition after discharge criteria met . A copy of the needle placement picture was saved to the C-arm machine.
[2020-06-24 14:29] VITALS: RESP 17
--- NOTE | 2020-06-24 14:40 | FL ---
Fluoroscopy History: bilateral lumbar facet 9 secs. fl. time [address] Salvador
[2020-06-24 14:41] VITALS: BP 170/90; PULSE 85
== END ==
LOC: ORPAIN 13:16
PROVIDERS: ATTEND Anesthesiology
DX: G89.29 Other chronic pain (principal); M47.816 Spondylosis without myelopathy or radiculopathy, lumbar region; M51.36 Other intervertebral disc degeneration, lumbar region; M96.1 Postlaminectomy syndrome, not elsewhere classified; E11.9 Type 2 diabetes mellitus without complications; Z88.1 Allergy status to other antibiotic agents; Z79.899 Other long term (current) drug therapy; Z79.84 Long term (current) use of oral hypoglycemic drugs; Z79.1 Long term (current) use of non-steroidal anti-inflammatories (NSAID); Z79.891 Long term (current) use of opiate analgesic
CPT/HCPCS: 64493; 64494; J2250; J3301; J2795

== ENCOUNTER 2020-07-16 15:28 | Emergency (ER) | payer OTHER ==
[2020-07-16] MEDS ORDERED: KETOROLAC 15 MG/ML 1 ML VIAL IM STA (15:53)
[2020-07-16] MEDS ORDERED: LIDOCAINE 5% PATCH TOPICAL STA (15:53)
[2020-07-16] MEDS ORDERED: DEXAMETHASONE SOD PHOSPHATE 10 MG/ML 1 ML VIAL IM STA (15:54)
[2020-07-16] MEDS ORDERED: CYCLOBENZAPRINE 10 MG TAB PO STA (15:54)
[2020-07-16] MEDS ORDERED: HYDROmorphone 1 MG/ML 1 ML SYRINGE IM STA ×2 (16:36→17:39)
--- NOTE | 2020-07-16 16:54 | ED ---
Back Pain HPI - General Chief Complaint: Back Pain/Injury Stated Complaint: Back pain Time Seen by Provider: 07/16/20 15:34 Source: patient Limitations: no limitations - History of Present Illness Initial Comments: 50-year-old male with history of chronic back pain presents to emergency Department with a chief complaint of back pain. Patient reports receiving spine injections since February which have been working well. States the most 2 recent injections were in the SI joint. He states the last injection was about one week ago which caused him no significant improvement in symptoms. He states the pain seems to be exacerbated with bilateral lumbar radiculopathy. States the pain is exacerbated with ambulation left and right rotation. He denies saddle anesthesia, urinary retention with overflow incontinence or bowel incontinence. Denies any injury to the back. States he was prescribed Lyrica and [place] by his primary care physician with no significant improvement in symptoms. He does report history of lumbar fusion 3 years ago. - Related Data Home Medications Medication Instructions Recorded Confirmed Tamsulosin HCl [Flomax] 0.4 mg PO DAILY 02/23/15 06/24/20 metFORMIN HCL [Glucophage Xr] 500 mg PO BID 02/23/15 06/24/20 traMADol HCL [Ultram] 50 mg PO DAILY PRN 03/23/20 06/24/20 Albuterol Inhaler [Ventolin Hfa 1 puff INHALATION DIRECTED PRN 04/12/20 06/24/20 Inhaler] Cyclobenzaprine [Flexeril] 10 mg PO BID PRN 04/12/20 06/24/20 Multivit-Min/Folic/Vit K/Lycop 1 each PO DAILY 04/12/20 06/24/20 [Men's Multivitamin Tablet] Naproxen 500 mg PO BID PRN 04/12/20 06/24/20 Glimepiride(Unknown Dose) 1 PO DAILY 06/23/20 Liraglutide [Victoza 2-Cecil] 1.8 mg SQ DAILY 06/23/20 06/24/20 Previous Rx's Medication Instructions Recorded Lidocaine 5% Patch [Lidoderm] 1 patch TOPICAL DAILY #6 patch 07/16/20 Allergies Allergy/AdvReac Type Severity Reaction Status Date / Time erythromycin base Allergy Unknown Verified 07/16/20 15:32 Childhood Review of Systems ROS Statement: Those systems with pertinent positive or pertinent negative responses have been documented in the HPI. ROS Other: All systems not noted in ROS Statement are negative. Past Medical History Past Medical History: Diabetes Mellitus Additional Past Medical History / Comment(s): infection in bone of 2nd toe rt foot-HAD IV ANTIBIOTICS FOR 8 WEEKs STATES INFECTION RESOLVED (NOVEMBER 2019), BACK AND SHOULDER PAIN, History of Any Multi-Drug Resistant Organisms: None Reported Past Surgical History: Back Surgery, Orthopedic Surgery Additional Past Surgical History / Comment(s): right hand carpel tunnel, right elbow, right shoulder 2011. Back surgery, PAIN CLINIC PROCEDURES, Past Anesthesia/Blood Transfusion Reactions: No Reported Reaction Past Psychological History: No Psychological Hx Reported Smoking Status: Former smoker Past Alcohol Use History: Occasional Past Drug Use History: Marijuana - Past Family History Mother Family Medical History: No Reported History General Exam Limitations: no limitations General appearance: alert, in no apparent distress, obese Head exam: Present: atraumatic, normocephalic, normal inspection Eye exam: Present: normal appearance, PERRL, EOMI Pupils: Present: normal accommodation ENT exam: Present: normal exam, normal oropharynx, mucous membranes moist Neck exam: Present: normal inspection, full ROM. Absent: tenderness Respiratory exam: Present: normal lung sounds bilaterally. Absent: respiratory distress Cardiovascular Exam: Present: regular rate, normal rhythm, normal heart sounds GI/Abdominal exam: Present: soft. Absent: distended, tenderness, guarding, rebound, rigid Extremities exam: Present: normal inspection, full ROM, normal capillary refill. Absent: tenderness Back exam: Present: normal inspection, full ROM, tenderness (Tenderness near the SI joints bilaterally). Absent: CVA tenderness (R), CVA tenderness (L), muscle spasm Neurological exam: Present: alert, oriented X3 Psychiatric exam: Present: normal affect, normal mood Skin exam: Present: warm, dry, intact, normal color Course Vital Signs 07/16/20 15:30 Temperature 97.5 F L Pulse Rate 89 Respiratory 16 Rate Blood Pressure 156/59 O2 Sat by Pulse 99 Oximetry Medical Decision Making - Medical Decision Making 50-year-old male presents emergency Department with a chief complaint of back pain. This is acute on chronic back pain. No red flags. No cauda equina concerns. Patient given Toradol, Lidoderm patch, Flexeril, Decadron, Dilaudid. On reevaluation, patient reports improvement in symptoms. Patient given a prescription of Lidoderm patches. He will follow-up with his primary care physician. Also advised him to follow-up with an grievance and appeals specialist. Return parameters discussed the patient was understanding and agreeable. Case discussed with Disposition Clinical Impression: Strain of lumbar region, Mechanical back pain Disposition: HOME SELF-CARE Condition: Stable Instructions (If sedation given, give patient instructions): Acute Low Back Pain (ED) Additional Instructions: Follow-up with orthopedic recycling specialist. Continue taking your prescribed medication. Return to emergency department if symptoms worsen. Prescriptions: Lidocaine 5% Patch [Lidoderm] 1 patch TOPICAL DAILY #6 patch Is patient prescribed a controlled substance at d/c from ED?: No Referrals: Caren Mars DO [Primary Care Provider] - 1-2 days Nicholas Rivera DO [Doctor of Osteopathic Medicine] - 1-2 days Time of Disposition: 17:41
[2020-07-16 18:07] VITALS: BP 132/81; PULSE 67; RESP 17; TEMP 97.9
== END 2020-07-16 18:07 | disposition home or self-care (01) ==
LOC: EC 15:28
DX: S39.012A Strain of muscle, fascia and tendon of lower back, initial encounter (principal); G89.29 Other chronic pain; M54.9 Dorsalgia, unspecified; E11.9 Type 2 diabetes mellitus without complications; Z79.899 Other long term (current) drug therapy; Z79.84 Long term (current) use of oral hypoglycemic drugs; Z88.1 Allergy status to other antibiotic agents; Z87.891 Personal history of nicotine dependence; Z98.1 Arthrodesis status; X58.XXXA Exposure to other specified factors, initial encounter
CPT/HCPCS: 99283; 96372 ×4; J1100; J1170; J1885

== ENCOUNTER → 2020-08-10 | Outpatient (CLI) | payer OTHER ==
--- NOTE | 2020-08-11 02:41 | MR ---
EXAMINATION TYPE: MR pelvis wo con DATE OF EXAM: 08/10/2020 COMPARISON: None HISTORY: Back and bilateral leg pain. Multiplanar multiecho imaging of the pelvis was performed without contrast. FINDINGS: Proximal femurs appear intact. Hip joint spaces are fairly normal. There is no evidence of any signif icant hip joint effusion. There is no evidence of avascular necrosis. Intertrochanteric femurs appear normal. The acetabula are intact. Sacroiliac joints appear normal. There is tiny amount of free fluid in the pelvis. The bladder distends smoothly. There is no evidence of perirectal mass. Sacrum and coccyx appear intact. The segments have normal alignment. Lower lumba r spine is intact. There is small posterior disc bulging at L4-5 and L5-S1. There is posterior disc h erniation and spur formation at L3-4 with encroachment on the spinal canal. This area is not optimall y visualized. There is probably some L3-4 bony spinal stenosis. There are some postsurgical changes w ith metal artifact in the mid lumbar spine. There is no evidence of soft tissue mass. I see no dilated bowel in the pelvis. IMPRESSION: Spondylotic changes in the partly visualized lower lumbar spine with disc space narrowing at L3-4 and probable spinal stenosis. Tiny amount of free fluid in the pelvis. No pelvic fracture. Hip joints are fairly normal. No evidenc e of avascular necrosis.
== END | disposition home or self-care (01) ==
LOC: RADMRIMAIN 21:25
PROVIDERS: ATTEND Nurse Practitioner Family
DX: M48.061 Spinal stenosis, lumbar region without neurogenic claudication (principal); M47.816 Spondylosis without myelopathy or radiculopathy, lumbar region
CPT/HCPCS: 72195

== ENCOUNTER → 2021-03-21 | Outpatient (CLI) | payer OTHER ==
--- NOTE | 2021-03-21 12:18 | NM ---
EXAMINATION TYPE: NM stress cardiolite complete DATE OF EXAM: 03/21/2021 COMPARISON: NONE HISTORY: Presurgical clearance. History of diabetes and tobacco use in the past along with asthma. TECHNIQUE: After the intravenous administration of 9.47 mCi Tc 99m Sestamibi - Cardiolite resting SP ECT images acquired 45 minutes post injection. The patient received 0.4mg Lexiscan, 25.8 mCi Tc 99m Sestamibi - Stress images obtained [address] injection FINDINGS: Review of stress and rest SPECT images demonstrates no distinct perfusion abnormality. Gated analysi s shows normal wall motion with an estimated left ventricular ejection fraction of 55 %. IMPRESSION: No scintigraphic evidence for reversible ischemia.
--- NOTE | 2021-03-21 13:56 | EST ---
EXERCISE STRESS AGE: 50 SEX: M HT: 6'3" WT: 250 lbs. PROTOCOL: Lexiscan STAGE: NA DURATION OF EXERCISE: NA HEART RATE REST: 83 BLOOD PRESSURE REST: 168/99 MAXIMUM HEART RATE ACHIEVED: 95 MAXIMUM BLOOD PRESSURE: 169/104 85% MPHR: 143 100% MPHR: 168 METS: NA INDICATIONS: Pre-surgical CLINICAL INFORMATION: Baseline rhythm is sinus mechanism, rate of 83, normal axis and intervals, normal echocardiogram. Baseline blood pressure 168/99 mmHg. Patient received an injection of Lexiscan. Electrocardiograph monitoring revealed no evidence of diagnostic ischemic ST deviation. Cardiolite was injected per protocol. CONCLUSION: 1. Nondiagnostic electrocardiograph stress testing. 2. Nuclear images will be reported separately. MMODL / IJN: [id number] /
== END | disposition home or self-care (01) ==
LOC: RADNMMAIN 08:37
PROVIDERS: ATTEND Family Medicine
DX: Z01.818 Encounter for other preprocedural examination (principal); E11.9 Type 2 diabetes mellitus without complications; J45.909 Unspecified asthma, uncomplicated; Z72.0 Tobacco use
CPT/HCPCS: 93017; 78452; A9500

== ENCOUNTER 2021-11-22 23:57 | Emergency (ER) | payer OTHER ==
[2021-11-23 00:02] VITALS: RESP 18; TEMP 98
[2021-11-23] MEDS ORDERED: methylPREDNISolone SOD SUCCI 125 MG/2 ML VIAL IM STA (00:39)
[2021-11-23] MEDS ORDERED: HYDROmorphone 1 MG/ML 1 ML SYRINGE IM STA (00:39)
[2021-11-23] MEDS ORDERED: ORPHENADRINE 30 MG/ML 2 ML VIAL IM STA (00:39)
[2021-11-23 01:07] LABS: Glucose,Whole Blood 195 mg/dL (70-110)
--- NOTE | 2021-11-23 01:18 | ED ---
Back Pain HPI - General Chief Complaint: Back Pain/Injury Stated Complaint: leg pain, back pain Time Seen by Provider: 11/23/21 00:27 Source: patient, family, RN notes reviewed Limitations: no limitations - History of Present Illness Initial Comments: This is a pleasant 51-year-old male history of chronic back pain and recurrent sciatica. Patient states that he had surgery back in 2020. Patient states that at that time he had sciatic nerve irritation down the back of his right leg. Patient states he is gone through physical therapy for this. In fact, he states his last bout of physical therapy once yesterday. She states that he went home and ended up stepping down and then had shooting pain into his right buttock and down his right leg. Patient denies any problems with bowel movements or urination. No urinary retention. No urinary or bowel incontinence. No constipation. No fever or chills. No IV drug abuse. Patient states that movement exacerbates the pain. Physician does alleviate somewhat. Patient apparently went to [facility] this morning and had pain medication ordered there. Patient was subsequently discharged. [facility] er he states the pain seems to come back again. Patient also states he received a dose of corticosteroids there. Patient is diabetic. No headache, no fever or chills, no changes in vision or hearing, no sore throat or difficulty with speech, no neck pain, no chest pain or shortness of breath, no abdominal pain, no nausea or vomiting, no changes in urination or bowel movements, no skin rashes or lesions. MD Complaint: back pain - Related Data Home Medications Medication Instructions Recorded Confirmed Tamsulosin HCl [Flomax] 0.4 mg PO DAILY 02/23/15 06/24/20 metFORMIN HCL [Glucophage Xr] 500 mg PO BID 02/23/15 06/24/20 traMADol HCL [Ultram] 50 mg PO DAILY PRN 03/23/20 06/24/20 Albuterol Inhaler [Ventolin Hfa 1 puff INHALATION DIRECTED PRN 04/12/20 06/24/20 Inhaler] Cyclobenzaprine [Flexeril] 10 mg PO BID PRN 04/12/20 06/24/20 Multivit-Min/Folic/Vit K/Lycop 1 each PO DAILY 04/12/20 06/24/20 [Men's Multivitamin Tablet] Naproxen 500 mg PO BID PRN 04/12/20 06/24/20 Glimepiride(Unknown Dose) 1 PO DAILY 06/23/20 Liraglutide [Victoza 2-Cecil] 1.8 mg SQ DAILY 06/23/20 06/24/20 Previous Rx's Medication Instructions Recorded Lidocaine 5% Patch [Lidoderm] 1 patch TOPICAL DAILY #6 patch 07/16/20 Cyclobenzaprine [Flexeril] 10 mg PO TID PRN #20 tab 11/23/21 methylPREDNISolone Dose Pack 4 mg PO DIRECTED #21 tab 11/23/21 [Medrol Dose Pack] oxyCODONE HCL/ACETAMINOPHEN 1 tab PO Q6HR PRN 3 Days #12 tab 11/23/21 [Percocet 7.5-325 mg] Allergies Allergy/AdvReac Type Severity Reaction Status Date / Time erythromycin base Allergy Unknown Verified 11/23/21 00:02 Childhood Review of Systems ROS Statement: Those systems with pertinent positive or pertinent negative responses have been documented in the HPI. ROS Other: All systems not noted in ROS Statement are negative. Past Medical History Past Medical History: Diabetes Mellitus Additional Past Medical History / Comment(s): infection in bone of 2nd toe rt foot-HAD IV ANTIBIOTICS FOR 8 WEEKs STATES INFECTION RESOLVED (NOVEMBER 2019), BACK AND SHOULDER PAIN, History of Any Multi-Drug Resistant Organisms: None Reported Past Surgical History: Back Surgery, Orthopedic Surgery Additional Past Surgical History / Comment(s): right hand carpel tunnel, right elbow, right shoulder 2011. Back surgery, PAIN CLINIC PROCEDURES, Past Anesthesia/Blood Transfusion Reactions: No Reported Reaction Past Psychological History: No Psychological Hx Reported Smoking Status: Former smoker Past Alcohol Use History: Occasional Past Drug Use History: Marijuana - Past Family History Mother Family Medical History: No Reported History General Exam Limitations: no limitations General appearance: alert, in distress Head exam: Present: atraumatic, normocephalic, normal inspection Eye exam: Present: normal appearance, PERRL, EOMI. Absent: scleral icterus, conjunctival injection, periorbital swelling ENT exam: Present: normal exam, mucous membranes moist, normal external ear exam Neck exam: Present: normal inspection, full ROM. Absent: tenderness, meningismus, lymphadenopathy Respiratory exam: Present: normal lung sounds bilaterally. Absent: respiratory distress, wheezes, rales, rhonchi, stridor Cardiovascular Exam: Present: regular rate, normal rhythm, normal heart sounds. Absent: systolic murmur, diastolic murmur, rubs, gallop, clicks GI/Abdominal exam: Present: soft, normal bowel sounds. Absent: distended, tenderness, guarding, rebound, rigid Extremities exam: Present: normal inspection, full ROM (Full range of motion with increased pain), normal capillary refill. Absent: tenderness, pedal edema, joint swelling, calf tenderness Back exam: Present: normal inspection, paraspinal tenderness (Right lumbar paraspinal area and into the right buttock area), other (No break in skin integrity. No bony point tenderness. No erythema. No rash or lesion). Absent: full ROM (Limited by pain), tenderness, CVA tenderness (R), vertebral tenderness, rash noted Neurological exam: Present: alert, oriented X3, CN II-XII intact, reflexes normal, other (Gait is slow and guarded). Absent: motor sensory deficit (Straight leg raise positive on the right) Psychiatric exam: Present: normal affect, normal mood Skin exam: Present: warm, dry, intact, normal color. Absent: rash, cyanosis, diaphoretic, erythema, urticaria, vesicles, petechiae, pallor, mottled, abrasion Course Vital Signs 11/22/21 23:58 Temperature 98 F Pulse Rate 83 Respiratory 18 Rate Blood Pressure 193/96 O2 Sat by Pulse 100 Oximetry - Reevaluation(s) Reevaluation #1: 11/23/21 01:56 Medical record is reviewed Symptoms are improved here in the emergency department Patient is informed of results and questions answered Patient in no distress Medical Decision Making - Medical Decision Making Patient presents with symptoms consistent with right-sided sciatica. Patient has no evidence of cauda equina syndrome. -There are no red flags for concerning back pathology. Specifically: -No history of cancer, this is not a mass effect, MRI not indicated. -No anticoagulation, this is not a bleed. -No fevers, no IVDU, this is not an infectious process. -No trauma, no bony pain, x-rays are not indicated. -With a normal neuro exam, and no urinary or bowel retention or incontinence, there is no clinical sign of motor defect or cauda equina - MRI is not indicated at this point. -No pulsating abdominal mass or risk factors for AAA. -Pain is relieved with rest, which is also less concerning. -I do not believe that x-rays or emergent MRI is indicated at this time. -We will treat symptomatically and discharge home with follow up instructions. -Stretching/strengthening exercise given to patient and they will be referred to physical therapy Patient is diabetic, we'll have him monitor his sugars closely. I do not believe the patient needs any imaging at this time. Patient does have a back specialist out of [facility]. Patient has been under the care of a neurosurgeon. Patient has been going to physical therapy. Patient may need an MRI if symptoms continue.We'll have him follow-up there. Patient was given a short course of acetaminophen/oxycodone. Patient was given a Medrol Dosepak. Muscle relaxer added. This released in stable condition. Patient was told to return to the ER for any signs or symptoms worsen. Told to return immediately if any other problems arise. All questions answered. Treatment plan discussed. Patient in agreement Every effort has been made to ensure accuracy of this dictation. However, due to the limitations of electronic medical records and dictation devices, errors in charting still occur. Criminal Court Judge Dr. Mckeon - Lab Data Lab Results 11/23/21 Range/Units 01:06 POC Glucose (mg/dL) 195 H (70-110) mg/dL POC Glu Vice President Payment ID Jess Galarza Disposition Clinical Impression: Right sided sciatica Disposition: HOME SELF-CARE Condition: Stable Instructions (If sedation given, give patient instructions): Sciatica (ED) Additional Instructions: Follow-up with your child's physician as directed. Bring your child back to the emergency department immediately if any symptoms worsen or new symptoms develop. Return if any other problems arise. Is patient prescribed a controlled substance at d/c from ED?: Yes When asked, does pt state using other controlled substances?: No If prescribed controlled substance>3 days was MAPS reviewed?: Prescribed <3 Days If opioid is for acute pain is fill amount 7 days or less?: Yes If Rx opioid, was Start Talking consent form obtained?: Yes Referrals: Caren Mars DO [Primary Care Provider] - 11/23/21 Time of Disposition: 01:57
[2021-11-23] MEDS ORDERED: KETOROLAC 15 MG/ML 1 ML VIAL IM STA (01:55)
[2021-11-23 02:25] VITALS: BP 174/88; PULSE 76
== END 2021-11-23 02:26 | disposition home or self-care (01) ==
LOC: EC 23:57
DX: M54.41 Lumbago with sciatica, right side (principal); E11.9 Type 2 diabetes mellitus without complications; F12.90 Cannabis use, unspecified, uncomplicated; Z87.891 Personal history of nicotine dependence; Z79.84 Long term (current) use of oral hypoglycemic drugs
CPT/HCPCS: 96372 ×6; 99283 ×2; J2360; J2930; J1170; J1885; 36415

== ENCOUNTER → 2022-01-22 | Outpatient (CLI) | payer OTHER ==
--- NOTE | 2022-01-23 13:39 | US ---
EXAMINATION TYPE: US arterial LE single level DATE OF EXAM: 01/22/2022 2:26 PM CLINICAL HISTORY: I73.9 PERIPHERAL VASCULAR DISEASE, UNSPECIFIED. Doppler Waveforms: Right: Multiphasic Left: Multiphasic Ankle-Brachial Indices: Right: 1.49 Left: 1.63 Toe Brachial Indices: Right: 0.60 Left: 0.60 IMPRESSION: 1. Borderline low TBI 2. Elevated HELENA can be associated with noncompressible vasculature and indicate atherosclerotic calci fications consider follow-up CTA or dedicated arteriogram.
== END | disposition home or self-care (01) ==
LOC: RADUSWWP 13:57
PROVIDERS: ATTEND Podiatrist Foot & Ankle Surgery
DX: I70.202 Unspecified atherosclerosis of native arteries of extremities, left leg (principal)
CPT/HCPCS: 93922

== ENCOUNTER → 2022-02-02 | Outpatient (CLI) | payer OTHER ==
--- NOTE | 2022-02-02 16:35 | MR ---
EXAMINATION TYPE: MR lumbar spine wo/w con DATE OF EXAM: 02/02/2022 COMPARISON: Prior lumbar MRI dated 12/04/2016 HISTORY: Lumbar disc degeneration TECHNIQUE: Multiplanar, multisequence images of the lumbar spine were acquired without and with 11 mL intravenou s Gadavist gadolinium contrast. L1-L2: Normal disc appearance without desiccation. No herniation, protrusion or disc bulging. No ca nal stenosis is present. Foramina are patent bilaterally. L2-L3: There is extensive artifact present. No definite foraminal encroachment. There is facet arthro joana change suspected. L3-L4: Artifact is present. No evident disc herniation. L4-L5: Posterior broad-based disc bulge causes anterior mass effect on the thecal sac. There is facet arthropathy with hypertrophy ligamentum flavum causing some posterior lateral mass effect on the the kathy sac. Circumferential extension of endplate disc complex encroaches upon the foramen greater on th e left than on the right, there is artifact level. L5-S1: Facet arthropathy changes present. Posterior disc bulge similar to prior exam, there is contac t the anterior thecal sac and possibly S1 nerve roots. There is abnormal signal at the level of the r ight neural foramen, lateral recess region, some abnormal enhancement is present, there may be granul ation tissue, difficult to exclude sequestered fragment versus enhancement along the nerve root Circu mferential extension of endplate disc complex encroaches on the neural foramina bilaterally similar t o prior exam. There is been interval posterior fusion L3-4 Jimmy susceptibility artifact is present which somewhat limits evaluation. Spinal curvature is noted. No evident spinal stenosis. Laminectomy changes are valencia spected. There is multilevel spondylosis. The conus is at T12-L1 shows an unremarkable appearance. IMPRESSION: Postop changes. There is extensive artifact. Degenerative disc disease, multilevel foraminal encroach ment, facet arthropathy. There is abnormal signal at the level of the L5 nerve root on the right as d escribed
== END | disposition home or self-care (01) ==
LOC: RADMRIMAIN 09:03
PROVIDERS: ATTEND Neurological Surgery
DX: M51.36 Other intervertebral disc degeneration, lumbar region (principal); M47.816 Spondylosis without myelopathy or radiculopathy, lumbar region
CPT/HCPCS: 72158; A9585

== ENCOUNTER 2023-09-03 06:59 | Day surgery (SDC) | payer OTHER ==
[2023-09-02 09:52] VITALS: BMI 29.3
[~2023-09-03 06:59] MED LIST changes: -LACTATED RINGERS 1,000 ML IV SCH; -LIDOCAINE 1% (10MG/ML) FOR IV START INTRADERMA ONE; +LIDOCAINE 1% (10MG/ML) FOR IV START INTRADERMA PRN; -MIDAZOLAM 2 MG/2 ML VIAL ONE; -ROPIVACAINE 5MG/ML 20ML VIAL ONE; -TRIAMCINOLONE ACETONIDE 40 MG/ML 1 ML VIAL ONE
[2023-09-03 07:26] VITALS: TEMP 98
[2023-09-03 07:27] LABS: Glucose,Whole Blood 128 mg/dL (70-110)
[2023-09-03] MEDS: LACTATED RINGERS 1,000 ML IV SCH (07:27)
[2023-09-03] MEDS ORDERED: LIDOCAINE 2% (PF) 20 MG/ML 5 ML VIAL ONE (07:53)
[2023-09-03] MEDS ORDERED: PROPOFOL 10 MG/ML 20 ML VIAL IV ONE (07:53)
--- NOTE | 2023-09-03 08:01 | P.GSHP ---
History of Present Illness H&P Date: 09/03/23 Chief Complaint: GERD, screening 53-year-old male here for upper and lower endoscopy. Patient was slight drop in hemoglobin he states. Some fatigue. Mild heartburn. Due for colon cancer screening. No rectal bleeding or melena. Past Medical History Past Medical History: Asthma, Diabetes Mellitus Additional Past Medical History / Comment(s): low Hgb,hx infection in bone of 2nd toe rt foot-(NOVEMBER 2019), BACK AND SHOULDER PAIN, asthma only reactive with severe cold air. History of Any Multi-Drug Resistant Organisms: None Reported Past Surgical History: Back Surgery, Orthopedic Surgery Additional Past Surgical History / Comment(s): right hand carpel tunnel, right elbow, right shoulder 2011. Back surgery x 3, PAIN CLINIC PROCEDURES, Past Anesthesia/Blood Transfusion Reactions: No Reported Reaction Additional Past Anesthesia/Blood Transfusion Reaction / Comment(s): no hx blood transfusion Smoking Status: Former smoker - Past Family History Mother Family Medical History: No Reported History Medications and Allergies Home Medications Medication Instructions Recorded Confirmed Type Albuterol Inhaler [Ventolin Hfa 1 puff INHALATION DIRECTED PRN 04/12/20 09/02/23 History Inhaler] Ibuprofen [Motrin] 800 mg PO DAILY PRN 09/02/23 09/02/23 History Tirzepatide [Mounjaro] 5 mg SQ MO 09/02/23 09/02/23 History lisinopriL [Zestril] 2.5 mg PO QAM 09/02/23 09/02/23 History Allergies Allergy/AdvReac Type Severity Reaction Status Date / Time erythromycin base Allergy Unknown Verified 09/03/23 07:11 Childhood Surgical - Exam Vital Signs Temp Pulse Resp BP Pulse Ox 98.0 F 83 16 141/77 100 09/03/23 07:14 09/03/23 07:14 09/03/23 07:14 09/03/23 07:14 09/03/23 07:14 Physical exam: General: Well-developed, well-nourished HEENT: Normocephalic, sclerae nonicteric Abdomen: Nontender, nondistended Extremities: No edema Neuro: Alert and oriented Results - Labs Abnormal Lab Results - Last 24 Hours (Table) 09/03/23 Range/Units 07:24 POC Glucose (mg/dL) 128 H (70-110) mg/dL Assessment and Plan (1) Colon cancer screening Narrative/Plan: We will proceed with upper and lower endoscopy Current Visit: Yes Status: Acute Code(s): Z12.11 - ENCOUNTER FOR SCREENING FOR MALIGNANT NEOPLASM OF COLON SNOMED Code(s): 378664831
--- NOTE | 2023-09-03 08:12 | P.PCN ---
Date of Procedure: 09/03/23 Procedure(s) Performed: PREOPERATIVE DIAGNOSIS: GERD, screening POSTOPERATIVE DIAGNOSIS: Mild gastritis, small hiatal hernia, normal colon PROCEDURE: 1. EGD with biopsy 2. Colonoscopy ANESTHESIA: MAC SURGEON: Marco Antonio Spence M.D. SPECIMENS: Antrum ENDOSCOPIC PROCEDURE: The patient was on the endoscopy table in the left decubitus position. The Olympus gastroscope was inserted into the oropharynx and passed under direct visualization to the region of the third portion of the duodenum. From that point the scope was slowly withdrawn inspecting all surfaces carefully. There were no neoplastic inflammatory or polypoid lesions throughout the duodenum. The pylorus was widely patent. The stomach was carefully inspected. There was mild gastritis present. A biopsy of the antrum took place to rule out H. pylori. Retroflexion revealed a small sliding hiatal hernia. The patient had some retained liquid and solid food in the fundus. This was relatively small volume. Likely related to his Mounjaro. The esophagus was then carefully examined. There were no neoplastic inflammatory or polypoid lesions throughout the visualized esophagus. The patient was kept on the endoscopy table in the left decubitus position. The Olympus colonoscope was inserted into the anus and passed under direct visualization to the base of the cecum. The appendiceal orifice was visualized. From that point the scope was slowly withdrawn inspecting all surfaces carefully. There were no neoplastic inflammatory or polypoid lesions throughout the cecum, ascending, transverse, descending, sigmoid and rectum. There was no visible diverticulosis noted. The patient's prep was somewhat poor with some retained liquid and solid stool present. Digital rectal examination was normal. The patient was taken to the recovery room in stable condition per anesthesia guidelines. RECOMMENDATIONS: Await biopsy results. Repeat colonoscopy in 10 years.
[2023-09-03 08:55] VITALS: BP 146/87; PULSE 79; RESP 18
== END 2023-09-03 08:47 | disposition home or self-care (01) ==
LOC: ORWHC2ENDO 06:59
PROVIDERS: ATTEND Surgery
DX: Z12.11 Encounter for screening for malignant neoplasm of colon (principal); K29.50 Unspecified chronic gastritis without bleeding; K21.9 Gastro-esophageal reflux disease without esophagitis; K44.9 Diaphragmatic hernia without obstruction or gangrene; K57.30 Diverticulosis of large intestine without perforation or abscess without bleeding; E11.9 Type 2 diabetes mellitus without complications; J45.909 Unspecified asthma, uncomplicated; Z87.891 Personal history of nicotine dependence; Z79.51 Long term (current) use of inhaled steroids; Z88.1 Allergy status to other antibiotic agents; Z79.899 Other long term (current) drug therapy; Z98.890 Other specified postprocedural states
CPT/HCPCS: 45378; 43239; J2704; J2001; 88305

== ENCOUNTER 2023-10-29 10:00 | Emergency (ER) | payer OTHER ==
[2023-10-29 10:05] VITALS: TEMP 97.6
--- NOTE | 2023-10-29 10:07 | ED ---
Back Pain HPI - General Chief Complaint: Back Pain/Injury Stated Complaint: back pain Time Seen by Provider: 10/29/23 10:07 Source: patient, RN notes reviewed Limitations: no limitations - History of Present Illness Initial Comments: This is a 53-year-old male with a past medical history of chronic back pain and spinal fusions who presents emergency department chief complaint of lumbar back pain. Patient states that over the past 3 weeks he has been having pain in his right buttock that will radiate and to the posterior right leg down to his calf. Patient denies loss of bladder or bowel continence, saddle anesthesias. Patient states that his pain has been well-controlled over the past few years with physical therapy and at home [place] and Lyrica, but pain is persistent over the past few weeks. He denies any new recent falls or trauma. States he has an MRI scheduled next week for further evaluation of his back. Patient is requesting imaging at this time. - Related Data Home Medications Medication Instructions Recorded Confirmed Albuterol Inhaler [Ventolin Hfa 1 puff INHALATION DIRECTED PRN 04/12/20 09/02/23 Inhaler] Ibuprofen [Motrin] 800 mg PO DAILY PRN 09/02/23 09/02/23 Tirzepatide [Mounjaro] 5 mg SQ MO 09/02/23 09/02/23 lisinopriL [Zestril] 2.5 mg PO QAM 09/02/23 09/02/23 Previous Rx's Medication Instructions Recorded Cyclobenzaprine [Flexeril] 10 mg PO TID PRN #15 tab 10/29/23 Allergies Allergy/AdvReac Type Severity Reaction Status Date / Time erythromycin base Allergy Unknown Verified 10/29/23 11:33 Childhood Review of Systems ROS Statement: Those systems with pertinent positive or pertinent negative responses have been documented in the HPI. ROS Other: All systems not noted in ROS Statement are negative. Past Medical History Past Medical History: Asthma, Diabetes Mellitus Additional Past Medical History / Comment(s): low Hgb,hx infection in bone of 2nd toe rt foot-(NOVEMBER 2019), BACK AND SHOULDER PAIN, asthma only reactive with severe cold air. History of Any Multi-Drug Resistant Organisms: None Reported Past Surgical History: Back Surgery, Orthopedic Surgery Additional Past Surgical History / Comment(s): right hand carpel tunnel, right elbow, right shoulder 2011. Back surgery x 3, PAIN CLINIC PROCEDURES, Past Anesthesia/Blood Transfusion Reactions: No Reported Reaction Additional Past Anesthesia/Blood Transfusion Reaction / Comment(s): no hx blood transfusion Past Psychological History: No Psychological Hx Reported Smoking Status: Former smoker Past Alcohol Use History: Occasional Past Drug Use History: Marijuana - Past Family History Mother Family Medical History: No Reported History General Exam Limitations: no limitations General appearance: alert, in no apparent distress Head exam: Present: atraumatic, normocephalic, normal inspection Eye exam: Present: normal appearance, PERRL, EOMI. Absent: scleral icterus, conjunctival injection, periorbital swelling ENT exam: Present: normal exam, mucous membranes moist Neck exam: Present: normal inspection. Absent: tenderness, meningismus, lymphadenopathy Respiratory exam: Present: normal lung sounds bilaterally. Absent: respiratory distress, wheezes, rales, rhonchi, stridor Cardiovascular Exam: Present: regular rate, normal rhythm, normal heart sounds. Absent: systolic murmur, diastolic murmur, rubs, gallop, clicks GI/Abdominal exam: Present: soft, normal bowel sounds. Absent: distended, tenderness, guarding, rebound, rigid Right Hip exam: Present: tenderness (posterior medial glute). Absent: swelling, abrasion, laceration, ecchymosis, deformity, crepitus, dislocation Upper Leg exam: Present: normal inspection Knee exam: Present: normal inspection Lower Leg exam: Present: normal inspection, tenderness (posterior calf parasthesias) Back exam: Present: full ROM, other (previous noted surgical incision of lumbar spine) Neurological exam: Present: alert, oriented X3, CN II-XII intact Psychiatric exam: Present: normal affect, normal mood Skin exam: Present: warm, dry, intact, normal color. Absent: rash Course Vital Signs 10/29/23 10:02 Temperature 97.6 F Pulse Rate 84 Respiratory 18 Rate Blood Pressure 150/88 O2 Sat by Pulse 100 Oximetry Medical Decision Making - Medical Decision Making Was pt. sent in by a medical professional or institution (, PA, BIOTECHNICIAN, urgent care, hospital, or correction...) When possible be specific @ -No Did you speak to anyone other than the patient for history (EMS, parent, family, police, friend...)? What history was obtained from this source @ -No Did you review nursing and triage notes (agree or disagree)? Why? @ -I reviewed and agree with nursing and triage notes Were old charts reviewed (outside hosp., previous admission, EMS record, old EKG, old radiological studies, urgent care reports/EKG's, correction records)? Report findings @ -I reviewed the patient's previous orthopedic surgical notes from 2021 where he underwent a spinal fusion of the lumbar spine. Differential Diagnosis (chest pain, altered mental status, abdominal pain women, abdominal pain men, vaginal bleeding, weakness, fever, dyspnea, syncope, headache, dizziness, GI bleed, back pain, seizure, CVA, palpatations, mental health, musculoskeletal)? @ -Differential Musculoskeletal Muscular strain, contusion, ligament sprain, fracture, arthritis, septic arthritis, bursitis, cellulitis, muscle spasm, nerve compression, DVT, arterial occlusion, herpes zoster, electrolyte abnormality, tumor.... This is not meant to be in all inclusive list EKG interpreted by me (3pts min.). @ -None X-rays interpreted by me (1pt min.). @ -XR AP pelvis and lumbar spine no acute osseous abnormality, degenerative changes of the L5-S1. CT interpreted by me (1pt min.). @ -None done U/S interpreted by me (1pt. min.). @ -None done What testing was considered but not performed or refused? (CT, X-rays, U/S, labs)? Why? @ -CT imaging of the pelvis was considered but deferred at this time due to patient having a already scheduled MRI for evaluation of this ongoing sciatica. Shortly, patient then expressing any red flag symptoms concerning for cauda equina. What meds were considered but not given or refused? Why? @ -None Did you discuss the management of the patient with other professionals (professionals i.e. , PA, BIOTECHNICIAN, lab, RT, psych nurse, mental health social worker, inside horticultural specialty grower, teacher, chief executive officer, case management assistant)? Give summary @ -No Was smoking cessation discussed for >3mins.? @ -No Was critical care preformed (if so, how long)? @ -No Were there social determinants of health that impacted care today? How? (Homelessness, low income, unemployed, alcoholism, drug addiction, transportation, low edu. Level, literacy, decrease access to med. care, long term, rehab)? @ -No Was there de-escalation of care discussed even if they declined (Discuss DNR or withdrawal of care, Hospice)? DNR status @ -No What co-morbidities impacted this encounter? (DM, HTN, Smoking, COPD, CAD, Cancer, CVA, ARF, Chemo, Hep., AIDS, mental health diagnosis, sleep apnea, morbid obesity)? @ -htn, diabetes Was patient admitted / discharged? Hospital course, mention meds given and route, prescriptions, significant lab abnormalities, going to OR and other pertinent info. @ -53-year-old male with lumbar back pain with radiation to his leg. On exa mination patient has full range of motion of the lumbar spine and has point tenderness in the right medial buttock with radiation into the right posterior leg into his calf. Patient has a negative straight leg test. Shared decision make with the patient at bedside he is requesting imaging at this time although patient has not had any recent falls or injuries. He will also be provided with a muscle relaxer and Toradol. On reevaluation of the patient he states that the medication is aiding in relief of his pain. xrays unremarkable. Patient will be sent a prescription for Flexeril to take at home as needed for pain relief. Recommend the patient keeps his follow-up appointment scheduled for MRI. All questions answered at bedside and strict return parameters have discussed with the patient which he has verbalized understanding. Discussed with my attending Dr. Maria Undiagnosed new problem with uncertain prognosis? @ -No Drug Therapy requiring intensive monitoring for toxicity (Heparin, Nitro, Insulin, Cardizem)? @ -No Were any procedures done? @ -No Diagnosis/symptom? @ -Lumbar radiculopathy, sciatica nerve pain Acute, or Chronic, or Acute on Chronic? @ -Default Uncomplicated (without systemic symptoms) or Complicated (systemic symptoms)? @ -uncomplicared Side effects of treatment? @ -No Exacerbation, Progression, or Severe Exacerbation? @ -No Poses a threat to life or bodily function? How? (Chest pain, [place], [place], pneumonia, PE, COPD, DKA, ARF, appy, cholecystitis, CVA, Diverticulitis, Homicidal, Suicidal, threat to staff... and all critical care pts) @ -[facility] Disposition Clinical Impression: Sciatic leg pain, Lumbar radiculopathy Disposition: HOME SELF-CARE Condition: Good Instructions (If sedation given, give patient instructions): Sciatica (ED), Lumbar Radiculopathy (ED) Additional Instructions: Return to the emergency department if symptoms worsen or not improve. Keep scheduled follow-up appointment with your primary care provider for further evaluation. Take prescribed medication as needed for pain relief. Prescriptions: Cyclobenzaprine [Flexeril] 10 mg PO TID PRN #15 tab PRN Reason: Muscle Spasm Is patient prescribed a controlled substance at d/c from ED?: No Referrals: Caren Mars DO [Primary Care Provider] - 1-2 days Time of Disposition: 11:33
[2023-10-29] MEDS: KETOROLAC 15 MG/ML 1 ML VIAL IM STA (10:27)
[2023-10-29] MEDS: ORPHENADRINE 30 MG/ML 2 ML VIAL IM STA (10:28)
--- NOTE | 2023-10-29 11:20 | XR ---
EXAMINATION TYPE: XR lumbar spine 2 or 3V DATE OF EXAM: 10/29/2023 COMPARISON: 07/10/2017 HISTORY: Pain radiating down right leg TECHNIQUE: 3 view lumbar spine FINDINGS: There is been interval disc spacers placed at L2-3 and L3-L4. Fixation pedicle screws and p laced L3 and L4. There is loss of disc height L5-S1. Laminectomies appear to be performed L2, L3, L4. IMPRESSION: 1. Postsurgical changes within the mid lumbar spine. 2. Degenerative disc changes L5-S1.
--- NOTE | 2023-10-29 11:21 | XR ---
EXAMINATION TYPE: XR pelvis AP view DATE OF EXAM: 10/29/2023 COMPARISON: None HISTORY: Low back pain TECHNIQUE: AP pelvis FINDINGS: Femoral heads articular with the acetabulum. Joint spaces are narrowed. Symphysis pubis and sacroiliac joints are unremarkable. Normal bowel gas is present. IMPRESSION: 1. No acute osseous abnormality AP pelvis
[2023-10-29 12:09] VITALS: BP 158/77; PULSE 77; RESP 16
== END 2023-10-29 12:12 | disposition home or self-care (01) ==
LOC: EC 10:00
DX: M54.16 Radiculopathy, lumbar region (principal); M54.41 Lumbago with sciatica, right side; M51.37 Other intervertebral disc degeneration, lumbosacral region; Z88.1 Allergy status to other antibiotic agents; Z87.891 Personal history of nicotine dependence
CPT/HCPCS: 99284; 96372 ×2; 72100; 72170; J2360; J1885

== ENCOUNTER → 2023-11-04 | Outpatient (CLI) | payer OTHER ==
--- NOTE | 2023-11-05 21:28 | MR ---
EXAMINATION TYPE: MR lumbar spine wo/w con DATE OF EXAM: 11/04/2023 9:12 PM CLINICAL INDICATION:Male, 53 years old with history of M54.42 L LUMBAGO W SCIATICA M48.062 STENOSIS M 96.1; PHH, Low back pain into both legs x18 months, Hx of back surgeries 2013, 2017, 2021 COMPARISON: None TECHNIQUE: Multi planar, multi sequence imaging was performed utilizing: T1-weighted, T2-weighted, a nd turbo inversion recovery imaging of the lumbar spine. IV Contrast: 11 cc Gadavist. (None if empty) FINDINGS: Alignment: The lumbar vertebral bodies have preserved heights and alignment. Cord: The conus medullaris and the distal spinal cord appear unremarkable with regards to their signa l intensity and morphology. Bones/Discs: Post surgical changes with hardware L3 and L4. Discectomy at L3-L4 and L2-L3. Mild moder ate degeneration changes throughout the spine with osteophyte formation and facet joint arthropathy. Reactive bony edema of the adjoining endplates of L5-S1. Laminectomy changes at L3 noted. Multilevel disc desiccation is present. No abnormal postcontrast enhancement. T12-L1: No evidence of significant spinal canal stenosis or neural foraminal stenosis. L1-L2: No evidence of significant spinal canal stenosis or neural foraminal stenosis. L2-L3: No evidence of significant spinal canal stenosis or neural foraminal stenosis. L3-L4: Susceptibility artifact limits evaluation at this level the spinal canal and degeneration with moderate to severe bilateral neural foraminal stenosis. L4-L5: Susceptibility artifact limits evaluation at this level the spinal canal and moderate to sever e bilateral neural foraminal stenosis. L5-S1: Disc extrusion with material extending cephalad 16 mm this displaces the exiting right nerve. Facet joint arthropathy with severe bilateral neural foraminal stenosis. No significant spinal canal or neural foraminal stenosis in the remainder of the visualized levels. Other findings: None. IMPRESSION: 1. L5-S1 disc extrusion with superior migration of disc material at the 16 mm in displacement of the exiting right nerve. 2. Postsurgical changes with disc degeneration with associated osteoarthritic changes. No foraminal stenosis worse with severe bilateral L5-S1, moderate to severe bilateral L4-L5 and L3-L4
== END | disposition home or self-care (01) ==
LOC: RADMRIMAIN 19:45
PROVIDERS: ATTEND Family Medicine
DX: M48.062 Spinal stenosis, lumbar region with neurogenic claudication (principal); M96.1 Postlaminectomy syndrome, not elsewhere classified; M51.27 Other intervertebral disc displacement, lumbosacral region; M51.36 Other intervertebral disc degeneration, lumbar region; M54.42 Lumbago with sciatica, left side
CPT/HCPCS: 72158; A9585

== ENCOUNTER → 2023-11-21 | Outpatient (CLI) | payer OTHER ==
[2023-11-21 08:29] VITALS: BP 146/88; PULSE 82; RESP 16
--- NOTE | 2023-11-21 14:53 | P.PAINPG ---
PQRS Measure Charge Sheet Comment: HISTORY OF PRESENT ILLNESS: A 53 yr old male as a referral from Dr Caren Mars presents today w severe and chronic LBP > 1 yr secondary to L2, L3, L4 post laminectomy syndrome and L3-L4 fixation for evaluation. Pt states pain level is provoked at 6 /10 in intensity, constant, localized in the R lower lumbar spine, predominantly axial, achy in character w occasional shooting pain towards the back of the RLE. Pain is provoked by standing / walking for periods > 20 min. Pain is alleviated by PT x 4 wks which ended in Oct 2023, physician guided home exercises 5 times weekly since Oct 2023, heat, ice, medications ([place], Lyrica, Flexeril), repositioning and rest . Oswestry axial pain score at 23. PMH: OA, Asthma, HTN, IDDM II, Seasonal Allergies PSH: BL SI (2019, 2020), L2, L3 discectomy w L2-L4 laminectomy and fusion, R CTR, R Elbow Surgery, R Shoulder Surgery (2011), Colonoscopy/ EGD (2023) SH: Former tobacco user, Occasional ETOH use, Cannabis use FH: Mo- No Reported History All: See list Meds: See list REVIEW OF ORGAN SYSTEMS: CONSTITUTIONAL: No fevers or chills. No recent weight loss. NEUROLOGICAL: + numbness and tingling along the distal extremities. No seizure disorders or headaches. MUSCULOSKELETAL: + pain PSYCHIATRIC: Denies current depression or suicidal thoughts. Physical Examinations : Constitutional : Cooperative , not in acute distress . Neurologic : Cranial nerve II to XII intact. No focal neurological deficits. Psychiatric : alert & oriented x 3. Matching mood & appropriate affect. Judgment & insight intact. Musculoskeletal : Cervical Spine Motor strength in the deltoid and biceps: Normal right side. Normal Left side Motor strength biceps and the wrist extensors: Normal right side . Normal left side Motor strength in the triceps muscle: Normal right side. Normal left side Deep tendon reflexes: Normal at the biceps. Normal at Brachioradialis. Normal at triceps Vertebral body tenderness to deep palpation over Cervical facet loading test: positive bilaterally Spurling test: positive bilaterally Neck distraction test: positive bilaterally Chavez sign: positive bilaterally Lumbar spine Motor strength lower extremities ,thigh and legs 5/5 Right side , 5/5 Left side Deep tendon reflexes : Normal Knee Jerk. Normal Ankle Jerk Vertebral body tenderness over L5 Caicedo Test positive Lumbar facet Loading Test: positive Right / positive Left Range of motion of the lumbar spine Flexion 30 degrees, extension 10 degrees Straight Leg Raise test: Left/ Right positive at 30 degrees Ranjan test: positive right / positive left. Severe tenderness over the Sacroiliac joint on the Right / Left sides Gaenslen test: positive bilaterally Seated flexion test: positive bilaterally. Sacral spine : Severe tenderness over the Sacroiliac joint: right side / left side Range of motion: Flexion of the lumbar spine <60 degrees Range of motion: Extension of the lumbar spine <20 degrees Gaenslen's Test positive Ranjan test: positive right side / lef t side Thigh Thrust Test Sacral Thrust Test Imaging: MRI non contrast of the lumbar spine from 11/04/23 reviewed X- ray lumbar spine from 10/25/23 reviewed Assessment/ Plan : L2, L3, L4 post laminectomy syndrome, L3-L4 fixation Recommendation of DAVID L5-S1 #1. May need a series of injections for optimal pain relief. Risks, benefits of procedure discussed and patient verbalized understanding. Admits to anti- coagulant use or medical history of diabetes. Protocol for discontinuation/ continuation of medications elif procedure discussed. Recommendation of Naproxyn 500mg #60 w 1 RF. Use, side effects, adverse reactions, safe storage discussed. All questions answered. I have spent greater than 30 minutes on patient care today. Dr Chu was available by phone for the evaluation of this patient. The time was used to review the medical records including relevant urine studies and Prescription history (MAPs), review of the available imaging, evaluation and examination of the patient, coordination of care with the medical staff and if applicable referring physicians, as well as creation of the medical record - Pain Location Bilateral Lower Back Non-Pharmacological Interventions: Heat, Inactivity, Physical Therapy, Position/Reposition Pharmacological Interventions: PRN Medication, Scheduled Medication, Topical Medication PQRS Narrative: Smoking Status Never smoker Hx Alcohol Use (MH) Yes Home Medications: Ambulatory Orders lisinopriL [Zestril] 2.5 mg PO DAILY 09/02/23 Cetirizine HCl 10 mg PO DAILY 10/29/23 Cyclobenzaprine [Flexeril] 10 mg PO TID PRN #15 tab 10/29/23 HYDROcodone/APAP 10-325MG [[place] 10-325] 1 tab PO QID PRN 10/29/23 Ketorolac 0.5% Ophth Soln [Acular 0.5%] 1 drop RIGHT EYE DIRECTED 10/29/23 Latanoprost [Latanoprost 0.005%] 1 drop BOTH EYES HS 10/29/23 Pregabalin [Lyrica] 200 mg PO TID 10/29/23 Tirzepatide [Mounjaro] 7.5 mg SQ MO 10/29/23 Naproxen [Naprosyn] 500 mg PO BID 30 Days #60 tab 11/21/23 Controlled Substance Measures - Controlled Substance Measures Is patient prescribed a controlled substance at discharge?: No
== END ==
LOC: PNWHC3 08:05
PROVIDERS: ATTEND Specialist
DX: M96.1 Postlaminectomy syndrome, not elsewhere classified (principal); G89.4 Chronic pain syndrome; M54.16 Radiculopathy, lumbar region; M48.062 Spinal stenosis, lumbar region with neurogenic claudication; M43.26 Fusion of spine, lumbar region; Z88.1 Allergy status to other antibiotic agents
CPT/HCPCS: 99211

== ENCOUNTER → 2023-12-30 | Outpatient (CLI) | payer OTHER | LOC: PNWHC3 08:30 | PROVIDERS: ATTEND Specialist | DX: M47.816 Spondylosis without myelopathy or radiculopathy, lumbar region | CPT/HCPCS: 99211 ==

== ENCOUNTER 2024-02-04 07:09 | Day surgery (SDC) | payer OTHER ==
[2024-01-30 11:32] VITALS: BMI 29.3
[2024-02-04] MEDS: LACTATED RINGERS 1,000 ML IV ONE (07:30)
[2024-02-04 07:39] VITALS: TEMP 97.4
[2024-02-04 07:39] LABS: Glucose,Whole Blood 113 mg/dL (70-110)
[2024-02-04] MEDS: LACTATED RINGERS 1,000 ML IV SCH (07:39)
[2024-02-04] MEDS ORDERED: MIDAZOLAM 2 MG/2 ML VIAL ONE (07:55)
[2024-02-04] MEDS ORDERED: ROPIVACAINE 5MG/ML 20ML VIAL ONE (07:55)
[2024-02-04] MEDS ORDERED: fentaNYL (PF) 50 MCG/ML 2 ML AMP ONE (07:55)
[2024-02-04] MEDS: IV FLUID CONTINUATION 800 ML IV ONE (08:12)
--- NOTE | 2024-02-04 08:24 | P.PCN ---
Date of Procedure: 02/04/24 Procedure(s) Performed: PREOPERATIVE DIAGNOSIS : 1- Lumbar spondylosis with Facet Arthropathy with out myelopathy . 2- Lumber degenerative disc disease POSTOPERATIVE DIAGNOSIS: 1- Lumbar spondylosis with Facet Arthropathy without myelopathy . 2- Lumber degenerative disc disease PROCEDURE: Diagnostic bilateral L3 , L4 , and L5 medial branch block under fluoroscopy guidance(fluoroscopy images available in the radiology Department ) ( To target the facet joint between Bilateral L4-5 , and L5-S1 )#1st ANESTHESIA: moderate sedation with intravenous Versed 2 mg and Fentanyl 100 mcg. (Sedation start time at 07:55, end time at 08:05 ) EBL: Minimal COMPLICATION: None PROCEDURE INDICATION: Chronic low back pain secondary to Facet arthropathy unresponsive to conservative treatment. PROCEDURE DESCRIPTION: the patient was seen and identified in the preop holding area , risks and benefits and possible complications of the procedure and alternative were discussed with the patient, and the patient agreed to proceed with the procedure and signed the consent and vital signs monitored during the procedure and fluoroscopy was used to maximize the benefit and accuracy of the needle placement, and sedation was given to decrease patient anxiety, patient was taken to the procedure room and placed in prone position vital signs monitored in the back prepped with chlorhexidine X3 then under strict sterile technique using a right oblique fluoroscopy ,the junction of the transverse process and the superior articulating process of the right L3 , L4 , and L5 vertebra which corresponding to the fluoroscopy image of the eye of the Francesco dog on the block side for the medial branches and subsequently , after local infiltration of skin and subcu tissuies with Ropivacaine 0.5 % , one mL at each level ,then 22-gauge Quincke-type needles , 3 needle was used , each one of them placed at the junction of the base of the transverse process and the superior articular process at the appropriate level, and the needle was advanced until the periosteum contacted, needle placement confirmed with AP oblique and lateral view and after appropriate needle placement confirmed, and after negative aspiration for heme and CSF and there was no paresthesia 1-1/2 mL of Ropivacaine 0.5% , then half mL injected at each level after negative aspiration the needle subsequently removed and the same procedure repeated for the left side at left side at L3 , L4 and L5 levels. At the end of the procedure and the needles removed and a bandage applied after the skin was cleaned the cleaning solution patient taken to recovery room in sta ble condition and monitors in the recovery room for 20-30 minutes and discharged home in stable condition after discharge criteria met and patient will follow up with the pain clinic in 2-4 weeks
[2024-02-04 08:31] VITALS: BP 158/95; PULSE 84; RESP 18
--- NOTE | 2024-02-11 18:22 | FL ---
EXAMINATION TYPE: FL guided pain mgmt statistic DATE OF EXAM: 02/04/2024 8:13 AM COMPARISON: Pre Operative Images if available both CT/MRI or plain film CLINICAL INDICATION: Male, 53 years old with history of PAIN; TECHNIQUE: FL guided pain mgmt statistic, multiple fluoroscopic images provided for procedure. Total fluoroscopy time: 13.4 seconds Total submitted images to PACS: 5 DAP: [id number] mGym2 Gycm2 uGym2 cGycm2 FINDINGS: Fluoroscopic images during injection for pain management demonstrate multilevel degeneration changes throughout the spine. Fixation hardware appears intact. No evidence for fracture. No acute process id entified. IMPRESSION: 1. No evidence for intraoperative complication. 2. Please see the operative/procedural note for further details. [facility], , 02/11/2024 6:19 PM
== END 2024-02-04 08:56 | disposition home or self-care (01) ==
LOC: ORPAIN 07:09
PROVIDERS: ATTEND Specialist
DX: M47.816 Spondylosis without myelopathy or radiculopathy, lumbar region
CPT/HCPCS: 99152

== ENCOUNTER → 2024-02-17 | Outpatient (CLI) | payer OTHER ==
[2024-02-17 09:32] VITALS: BP 145/85; PULSE 86; RESP 18
--- NOTE | 2024-02-17 15:04 | P.PAINPG ---
PQRS Measure Charge Sheet Comment: HISTORY OF PRESENT ILLNESS: A 53 yr old male presents today w severe and chronic LBP > 1 yr secondary to L2, L3, L4 post laminectomy syndrome and L3-L4 fixation for evaluation s/p BL MBB L4-L5/ L5-S1 #1. Pt states he experienced 80 % pain relief x 4 hrs s/p procedure. Pt states pain level is provoked at 6 /10 in intensity, constant, localized in the R lower lumbar spine, predominantly axial, achy in character without shooting pain. Pain is provoked by standing / walking for periods > 20 min. Pain is alleviated by PT x 4 wks which ended in Oct 2023, physician guided home exercises 5 times weekly since Oct 2023, heat, ice, medications, repositioning and rest . Interventional procedures include DAVID L4-L5 x1, BL MBB L3-L5 x1 Medications include [place], Lyrica, Flexeril, Cannabis use REVIEW OF ORGAN SYSTEMS: CONSTITUTIONAL: No fevers or chills. No recent weight loss. NEUROLOGICAL: + numbness and tingling along the distal extremities. No seizure disorders or headaches. MUSCULOSKELETAL: + pain PSYCHIATRIC: Denies current depression or suicidal thoughts. Physical Examinations : Constitutional : Cooperative , not in acute distress . Neurologic : Cranial nerve II to XII intact. No focal neurological deficits. Psychiatric : alert & oriented x 3. Matching mood & appropriate affect. Judgment & insight intact. Musculoskeletal : Cervical Spine Motor strength in the deltoid and biceps: Normal right side. Normal Left side Motor strength biceps and the wrist extensors: Normal right side . Normal left side Motor strength in the triceps muscle: Normal right side. Normal left side Deep tendon reflexes: Normal at the biceps. Normal at Brachioradialis. Normal at triceps Vertebral body tenderness to deep palpation over Cervical facet loading test: positive bilaterally Spurling test: positive bilaterally Neck distraction test: positive bilaterally Chavez sign: positive bilaterally Lumbar spine Motor strength lower extremities ,thigh and legs 5/5 Right side , 5/5 Left side Deep tendon reflexes : Normal Knee Jerk. Normal Ankle Jerk Vertebral body tenderness over L5 Caicedo Test positive Lumbar facet Loading Test: positive Right / positive Left L4-L5, L5-S1 Range of motion of the lumbar spine Flexion 30 degrees, extension 10 degrees Straight Leg Raise test: Left/ Right positive at 30 degrees Ranjan test: positive right / positive left. Severe tenderness over the Sacroiliac joint on the Right / Left sides Gaenslen test: positive bilaterally Seated flexion test: positive bilaterally. Sacral spine : Severe tenderness over the Sacroiliac joint: right side / left side Range of motion: Flexion of the lumbar spine <60 degrees Range of motion: Extension of the lumbar spine <20 degrees Gaenslen's Test positive Ranjan test: positive right side / left side Thigh Thrust Test Sacral Thrust Test Imaging: MRI non contrast of the lumbar spine from 11/04/23 reviewed X- ray lumbar spine from 10/25/23 reviewed Assessment/ Plan : L2, L3, L4 post laminectomy syndrome, L3-L4 fixation Recommendation of MARY MBFamilia L4-L5/ L5-S1 #2. Risks, benefits of procedure discussed and patient verbalized understanding. Admits to anti- coagulant use or medical history of diabetes. Minimal anesthesia including Fentanyl and Versed if clinically indicated. Protocol for discontinuation/ continuation of medications elif procedure discussed. All questions answered. I have spent greater than 30 minutes on patient care today. Dr Chu was available by phone for the evaluation of this patient. The time was used to review the medical records including relevant urine studies and Prescription history (MAPs), review of the available imaging, evaluation and examination of the patient, coordination of care with the medical staff and if applicable referring physicians, as well as creation of the medical record - Pain Location Lower Back Non-Pharmacological Interventions: Position/Reposition Pharmacological Interventions: Epidural PQRS Narrative: Smoking Status Never smoker Hx Alcohol Use (MH) Yes Home Medications: Ambulatory Orders lisinopriL [Zestril] 2.5 mg PO DAILY 09/02/23 Cetirizine HCl 10 mg PO DAILY 10/29/23 HYDROcodone/APAP 10-325MG [[place] 10-325] 1 tab PO QID PRN 10/29/23 Latanoprost [Latanoprost 0.005%] 1 drop BOTH EYES HS 10/29/23 Tirzepatide [Mounjaro] 7.5 mg SQ MO 10/29/23 Naproxen [Naprosyn] 500 mg PO BID 30 Days #60 tab 11/21/23 Pregabalin [Lyrica] 150 mg PO TID 01/30/24 Albuterol Inhaler [Ventolin Hfa Inhaler] 2 puff INHALATION Q4-6H PRN 02/04/24 Baclofen 10 mg PO TID PRN 02/04/24 Controlled Substance Measures - Controlled Substance Measures Is patient prescribed a controlled substance at discharge?: No
== END | disposition home or self-care (01) ==
LOC: PNWHC3 08:52
PROVIDERS: ATTEND Specialist
DX: M96.1 Postlaminectomy syndrome, not elsewhere classified (principal); Z88.1 Allergy status to other antibiotic agents; M54.50 Low back pain, unspecified
CPT/HCPCS: 99211

== ENCOUNTER → 2024-03-03 | Day surgery (SDC) | payer OTHER ==
[2024-02-27 14:28] VITALS: BMI 28.7
[~2024-03-03] MED LIST changes: -LIDOCAINE 1% (10MG/ML) FOR IV START INTRADERMA PRN; +MIDAZOLAM 2 MG/2 ML VIAL ONE; +ROPIVACAINE 5MG/ML 20ML VIAL ONE; +fentaNYL (PF) 50 MCG/ML 2 ML AMP ONE
[2024-03-03 12:30] VITALS: RESP 16; TEMP 97.4
[2024-03-03] MEDS: IV FLUID CONTINUATION 1,000 ML IV ONE ×2 (12:32→13:38)
[2024-03-03] MEDS: LACTATED RINGERS 1,000 ML IV SCH (12:32)
[2024-03-03 12:54] LABS: Glucose,Whole Blood 181 mg/dL (70-110)
--- NOTE | 2024-03-03 13:18 | P.PCN ---
Date of Procedure: 03/03/24 Procedure(s) Performed: PREOPERATIVE DIAGNOSIS : 1- Lumbar spondylosis with Facet Arthropathy without myelopathy . 2- Lumber degenerative disc disease POSTOPERATIVE DIAGNOSIS: 1- Lumbar spondylosis with Facet Arthropathy without myelopathy . 2- Lumber degenerative disc disease PROCEDURE: Diagnostic bilateral L3 , L4 , and L5 medial branch block under fluoroscopy guidance(fluoroscopy images available in the radiology Department ) ( To target the facet joint between Bilateral L4-5 , and L5-S1 )#2nd ANESTHESIA: moderate sedation with intravenous Versed 2 mg and Fentanyl 100 mcg. (Sedation start time at 13:05, end time at 13:16 ) EBL: Minimal COMPLICATION: None PROCEDURE INDICATION: Chronic low back pain secondary to Facet arthropathy unresponsive to conservative treatment. PROCEDURE DESCRIPTION: the patient was seen and identified in the preop holding area , risks and benefits and possible complications of the procedure and alternative were discussed with the patient, and the patient agreed to proceed with the procedure and signed the consent and vital signs monitored during the procedure and fluoroscopy was used to maximize the benefit and accuracy of the needle placement, and sedation was given to decrease patient anxiety, patient was taken to the procedure room and placed in prone position vital signs monitored in the back prepped with chlorhexidine X3 then under strict sterile technique using a right oblique fluoroscopy ,the junction of the transverse process and the superior articulating process of the right L3 , L4 , and L5 vertebra which corresponding to the fluoroscopy image of the eye of the Francesco dog on the block side for the medial branches and subsequently , after local infiltration of skin and subcu tissuies with Ropivacaine 0.5 % , one mL at each level ,then 22-gauge Quincke-type needles , 3 needle was used , each one of them placed at the junction of the base of the transverse process and the superior articular process at the appropriate level, and the needle was advanced until the periosteum contacted, needle placement confirmed with AP oblique and lateral view and after appropriate needle placement confirmed, and after negative aspiration for heme and CSF and there was no paresthesia 1-1/2 mL of Ropivacaine 0.5% , then half mL injected at each level after negative aspiration the needle subsequently removed and the same procedure repeated for the left side at left side at L3 , L4 and L5 levels. At the end of the procedure and the needles removed and a bandage applied after the skin was cleaned the cleaning solution patient taken to recovery room in stable condition and monitors in the recovery room for 20-30 minutes and discharged home in stable condition after discharge criteria met and patient will follow up with the pain clinic in 1-2 weeks
[2024-03-03 13:51] VITALS: BP 156/88; PULSE 74
--- NOTE | 2024-03-03 13:56 | FL ---
Fluoroscopy History: Lencho Lumbar Facet Bilateral lumbar facets with Al Nir 8.1 sec fluoro time .[id number] DAP 4 images saved [facility], , 03/03/2024 1:54 PM
== END ==
LOC: ORPAIN 12:00
PROVIDERS: ATTEND Specialist
CPT/HCPCS: 99152

== ENCOUNTER → 2024-03-18 | Outpatient (CLI) | payer OTHER ==
[2024-03-18 10:29] VITALS: BP 143/81; PULSE 83; RESP 16; TEMP 97.1
--- NOTE | 2024-03-18 15:14 | P.PAINPG ---
PQRS Measure Charge Sheet Comment: HISTORY OF PRESENT ILLNESS: A 53 yr old male presents today w severe and chronic LBP > 1 yr secondary to L2, L3, L4 post laminectomy syndrome and L3-L4 fixation for evaluation s/p BL MBB L4-L5/ L5-S1 #2. Pt states he experienced 80 % pain relief x 3 days s/p procedure. Pt states pain level is provoked at 6-7 /10 in intensity, constant, localized in the R lower lumbar spine, predominantly axial, achy in character without shooting pain. Pain is provoked by standing / walking for periods > 20 min. Pain is alleviated by PT x 4 wks which ended in Oct 2023, physician guided home exercises 5 times weekly since Oct 2023, heat, ice, medications, repositioning and rest . Interventional procedures include DAVID L4-L5 x1, BL MBB L3-L5 x2 Medications include [place], Lyrica, Flexeril, Cannabis use REVIEW OF ORGAN SYSTEMS: CONSTITUTIONAL: No fevers or chills. No recent weight loss. NEUROLOGICAL: + numbness and tingling along the distal extremities. No seizure disorders or headaches. MUSCULOSKELETAL: + pain PSYCHIATRIC: Denies current depression or suicidal thoughts. Physical Examinations : Constitutional : Cooperative , not in acute distress . Neurologic : Cranial nerve II to XII intact. No focal neurological deficits. Psychiatric : alert & oriented x 3. Matching mood & appropriate affect. Judgment & insight intact. Musculoskeletal : Cervical Spine Motor strength in the deltoid and biceps: Normal right side. Normal Left side Motor strength biceps and the wrist extensors: Normal right side . Normal left side Motor strength in the triceps muscle: Normal right side. Normal left side Deep tendon reflexes: Normal at the biceps. Normal at Brachioradialis. Normal at triceps Vertebral body tenderness to deep palpation over Cervical facet loading test: positive bilaterally Spurling test: positive bilaterally Neck distraction test: positive bilaterally Chavez sign: positive bilaterally Lumbar spine Motor strength lower extremities ,thigh and legs 5/5 Right side , 5/5 Left side Deep tendon reflexes : Normal Knee Jerk. Normal Ankle Jerk Vertebral body tenderness over L5 Caicedo Test positive Lumbar facet Loading Test: positive Right / positive Left L4-L5, L5-S1 Range of motion of the lumbar spine Flexion 30 degrees, extension 10 degrees Straight Leg Raise test: Left/ Right positive at 30 degrees Ranjan test: positive right / positive left. Severe tenderness over the Sacroiliac joint on the Right / Left sides Gaenslen test: positive bilaterally Seated flexion test: positive bilaterally. Sacral spine : Severe tenderness over the Sacroiliac joint: right side / left side Range of motion: Flexion of the lumbar spine <60 degrees Range of motion: Extension of the lumbar spine <20 degrees Gaenslen's Test positive Ranjan test: positive right side / left side Thigh Thrust Test Sacral Thrust Test Imaging: MRI non contrast of the lumbar spine from 11/04/23 reviewed X- ray lumbar spine from 10/25/23 reviewed Assessment/ Plan : L2, L3, L4 post laminectomy syndrome, L3-L4 fixation Recommendation of BL RFA L4-L5/ L5-S1. Risks, benefits of procedure discussed and patient verbalized understanding. Admits to anti- coagulant use or medical history of diabetes. Minimal anesthesia including Fentanyl and Versed if clinically indicated. Protocol for discontinuation/ continuation of medications elif procedure discussed. All questions answered. I have spent greater than 30 minutes on patient care today. Dr Chu was available by phone for the evaluation of this patient. The time was used to review the medical records including relevant urine studies and Prescription history (MAPs), review of the available imaging, evaluation and examination of the patient, coordination of care with the medical staff and if applicable referring physicians, as well as creation of the medical record PQRS Narrative: Smoking Status Never smoker Hx Alcohol Use (MH) Yes Home Medications: Ambulatory Orders lisinopriL [Zestril] 2.5 mg PO DAILY 09/02/23 Cetirizine HCl 10 mg PO DAILY 10/29/23 HYDROcodone/APAP 10-325MG [[place] 10-325] 1 tab PO QID PRN 10/29/23 Latanoprost [Latanoprost 0.005%] 1 drop BOTH EYES HS 10/29/23 Tirzepatide [Mounjaro] 7.5 mg SQ MO 10/29/23 Naproxen [Naprosyn] 500 mg PO BID 30 Days #60 tab 11/21/23 Pregabalin [Lyrica] 150 mg PO TID 01/30/24 Albuterol Inhaler [Ventolin Hfa Inhaler] 2 puff INHALATION Q4-6H PRN 02/04/24 Baclofen 10 mg PO TID PRN 02/04/24 Controlled Substance Measures - Controlled Substance Measures Is patient prescribed a controlled substance at discharge?: No
== END ==
LOC: PNWHC3 08:48
PROVIDERS: ATTEND Specialist
DX: M96.1 Postlaminectomy syndrome, not elsewhere classified (principal); Z88.1 Allergy status to other antibiotic agents
CPT/HCPCS: 99211

== ENCOUNTER 2024-03-27 12:07 | Day surgery (SDC) | payer OTHER ==
[2024-03-24 13:44] VITALS: BMI 29.3
[2024-03-27 12:30] VITALS: TEMP 97.2
[2024-03-27] MEDS: IV FLUID CONTINUATION 1,000 ML IV ONE (12:42)
[2024-03-27] MEDS: LACTATED RINGERS 1,000 ML IV SCH (12:42)
[2024-03-27 12:45] LABS: Glucose,Whole Blood 134 mg/dL (70-110)
[2024-03-27] MEDS ORDERED: ENALAPRILAT 1.25 MG/ML 1 ML VIAL ONE (12:48)
[2024-03-27] MEDS ORDERED: methylPREDNISolone ACETATE 40 MG/ML 1 ML VIAL ONE (12:48)
[2024-03-27] MEDS ORDERED: ROPIVACAINE 5MG/ML 20ML VIAL ONE (12:48)
[2024-03-27] MEDS ORDERED: MIDAZOLAM 2 MG/2 ML VIAL ONE (12:48)
[2024-03-27] MEDS ORDERED: fentaNYL (PF) 50 MCG/ML 2 ML AMP ONE (12:48)
--- NOTE | 2024-03-27 13:18 | P.PCN ---
Date of Procedure: 03/27/24 Procedure(s) Performed: PREOPERATIVE DIAGNOSIS: 1-Lumbar Spondylosis with Facet Arthropathy without myelopathy. 2- Lumber degenerative disc disease. POSTOPERATIVE DIAGNOSIS: 1- Lumbar Spondylosis with Facet Arthropathy without myelopathy. 2- Lumber degenerative disc disease. PROCEDURES : Bilateral Radiofrequency thermocoagulation L3, L4 , L5 medial branch, with fluoro guidance (fluoroscopy images in the radiology department) ( to denervate the facet joint at bilateral L4-5 ,and L5-S1 levels ). ANESTHESIA: Moderate sedation with intravenous versed 2 mg and fentaneyl 100 mcg,(sedation start time 12:48, end time 13:14 ). EBL: Minimal PROCEDURE INDICATION: The patient with low back pain secondary to lumbar facet arthropathy who had more than 50% relief of her pain with previous diagnostic lumbar medial branch block with bupivacaine. PROCEDURE DESCRIPTION / TECHNIQUE: The patient was seen and identified in the preoperative area. Risks, benefits, complications, including but not limited to risk of infection ,bleeding , allergic reactions to the medications and no complete pain releife , and alternatives were discussed with the patient, the patient agreed to proceed with the procedure and signed the consent. IV was started. Vital signs remained stable throughout the procedure. Patient was taken to the OR and time out was completed. The patient was placed in the prone position on the procedure table. The lumber area was prepped and draped in the usual sterile fashion. . Vital signs were closely monitored during the procedure .IV sedation was used during the procedure to decrease patients anxiety. Using AP and then oblique fluoroscopy, the ``eye of the Francesco dog corresponding to the connection between the superior and transverse articular processes of right L3, L4, and L5 were identified, marked, and localized with 1% lidocaine. Subsequently, a 18 [id number] (venom ) radiofrequency cannula with a 10-mm active tip was advanced guided by fluoroscopy to each of the``eyes of the Francesco dog at right L3, L4, and L5. Each site then underwent sensory testing at 50 Hz and 0 to 1 volt and motor testing at 2.5 Hz and 0 to 3 volt with local stimulation, but no radicular symptoms down the legs. Thereafter each sites underwent radiofrequency thermocoagulation at 80 degrees celsius for 90 seconds after injecting 0.5 ml of PF Ropivacaine 1ml, then after the thermocoagulation done , 1 ml of the block solution containing Depo-Medrol 20 mg and 3 ml of Ropivacaine 0.5% was injected at the right L3 , L4 , and L5 , levels after negative aspiration of CSF and blood and with no paresthesias. Cannulas were retracted while injecting lidocaine 1% until the needle is out. The same procedure was repeated at the level of Left L3, L4, and L5 levels. At the end of the procedure, the skin was cleansed and bandages were applied. COMPLICATIONS: No acute complications. DISPOSITION / PLANS: The patient was placed in a supine position and transferred to the recovery area in a stable condition for observation and was discharged from the recovery room after meeting discharge criteria. Home discharge instructions given to the patient by the staff. The patient was reexamined prior to discharge. The patient will schedule a follow up in the clinic in 2-4 weeks.
[2024-03-27] MEDS: LACTATED RINGERS 1,000 ML IV ONE (13:32)
[2024-03-27 13:58] VITALS: BP 150/94; PULSE 83; RESP 18
--- NOTE | 2024-03-27 14:15 | FL ---
Fluoroscopy INDICATION: Pain FINDINGS: Fluoroscopy time: 31.4 seconds. Total dose area product (DAP) in uGy*m?, mGy*cm? (or similar): 0.47498 Images obtained: 7. Multiple images with needles directed towards the lumbar spine. IMPRESSION: 1. Documentation of fluoroscopy. [facility], , 03/27/2024 2:13 PM
== END 2024-03-27 14:26 | disposition home or self-care (01) ==
LOC: ORPAIN 12:07
PROVIDERS: ATTEND Specialist
DX: M47.816 Spondylosis without myelopathy or radiculopathy, lumbar region (principal); Z88.1 Allergy status to other antibiotic agents
CPT/HCPCS: 64635; 64636 ×2; J2250; J3010; J2795; J1010; 99152; 99153

== ENCOUNTER → 2024-04-16 | Outpatient (CLI) | payer OTHER ==
[2024-04-16 09:06] VITALS: BP 129/84; PULSE 84; RESP 16; TEMP 97.1
--- NOTE | 2024-04-16 15:18 | P.PAINPG ---
Objective - Vital Signs Vital signs: Intake & Output 04/15/24 04/16/24 04/16/24 18:59 06:59 18:59 Weight 106.594 kg PQRS Measure Charge Sheet Comment: HISTORY OF PRESENT ILLNESS: A 54 yr old male presents today w severe and chronic LBP > 1 yr secondary to L2, L3, L4 post laminectomy syndrome and L3-L4 fixation for evaluation s/p BL RFA L4-L5/ L5-S1. Pt states he experienced 90 % pain relief s/p procedure. Pt states pain level is provoked at 8 /10 in intensity, constant, localized in the lower lumbar spine, predominantly axial, dull in character without shooting pain. Pain is provoked by standing / walking for periods > 30 min. Pain is alleviated by PT x 4 wks which ended in Oct 2023, physician guided home exercises 5 times weekly since Oct 2023, heat, ice, medications, repositioning and rest . Interventional procedures include DAVID L4-L5 x1, BL RFA L3-L5 (Mar 2024) Medications include [place], Lyrica, Flexeril, Cannabis use REVIEW OF ORGAN SYSTEMS: CONSTITUTIONAL: No fevers or chills. No recent weight loss. NEUROLOGICAL: + numbness and tingling along the distal extremities. No seizure disorders or headaches. MUSCULOSKELETAL: + pain PSYCHIATRIC: Denies current depression or suicidal thoughts. Physical Examinations : Constitutional : Cooperative , not in acute distress . Neurologic : Cranial nerve II to XII intact. No focal neurological deficits. Psychiatric : alert & oriented x 3. Matching mood & appropriate affect. Judgment & insight intact. Musculoskeletal : Cervical Spine Motor strength in the deltoid and biceps: Normal right side. Normal Left side Motor strength biceps and the wrist extensors: Normal right side . Normal left side Motor strength in the triceps muscle: Normal right side. Normal left side Deep tendon reflexes: Normal at the biceps. Normal at Brachioradialis. Normal at triceps Vertebral body tenderness to deep palpation over Cervical facet loading test: positive bilaterally Spurling test: positive bilaterally Neck distraction test: positive bilaterally Chavez sign: positive bilaterally Lumbar spine Motor strength lower extremities ,thigh and legs 5/5 Right side , 5/5 Left side Deep tendon reflexes : Normal Knee Jerk. Normal Ankle Jerk Vertebral body tenderness over L5 Caicedo Test positive Lumbar facet Loading Test: positive Right / positive Left L4-L5, L5-S1 Range of motion of the lumbar spine Flexion 30 degrees, extension 10 degrees Straight Leg Raise test: Left/ Right positive at 30 degrees Ranjan test: positive right / positive left. Severe tenderness over the Sacroiliac joint on the Right / Left sides Gaenslen test: positive bilaterally Seated flexion test: positive bilaterally. Sacral spine : Severe tenderness over the Sacroiliac joint: right side / left side Range of motion: Flexion of the lumbar spine <60 degrees Range of motion: Extension of the lumbar spine <20 degrees Gaenslen's Test positive Ranjan test: positive right side / left side Thigh Thrust Test Sacral Thrust Test Imaging: MRI non contrast of the lumbar spine from 11/04/23 reviewed X- ray lumbar spine from 10/25/23 reviewed Assessment/ Plan : L2, L3, L4 post laminectomy syndrome, L3-L4 fixation Recommendation of medication management. Naproxen #180. Use, side effects, adverse reactions, safe storage discussed. Pt acknowledged understanding. All questions answered. I have spent greater than 30 minutes on patient care today. Dr Chu was available by phone for the evaluation of this patient. The time was used to review the medical records including relevant urine studies and Prescription history (MAPs), review of the available imaging, evaluation and examination of the patient, coordination of care with the medical staff and if applicable referring physicians, as well as creation of the medical record - Pain Location Bilateral Lower Back Non-Pharmacological Interventions: Position/Reposition, Sitting Pharmacological Interventions: Block, Epidural, PRN Medication, Scheduled Medication, Topical Medication PQRS Narrative: Smoking Status Never smoker Narcotic Agreement Date Signed 03/18/24 Hx Alcohol Use (MH) Yes Home Medications: Ambulatory Orders lisinopriL [Zestril] 2.5 mg PO DAILY 09/02/23 Cetirizine HCl 10 mg PO DAILY 10/29/23 HYDROcodone/APAP 10-325MG [[place] 10-325] 1 tab PO QID PRN 10/29/23 Latanoprost [Latanoprost 0.005%] 1 drop BOTH EYES HS 10/29/23 Tirzepatide [Mounjaro] 7.5 mg SQ MO 10/29/23 Pregabalin [Lyrica] 150 mg PO TID 01/30/24 Albuterol Inhaler [Ventolin Hfa Inhaler] 2 puff INHALATION Q4-6H PRN 02/04/24 Baclofen 10 mg PO TID PRN 02/04/24 Naproxen [Naprosyn] 500 mg PO BID 90 Days #180 tab 04/16/24 Controlled Substance Measures - Controlled Substance Measures Is patient prescribed a controlled substance at discharge?: No
== END ==
LOC: PNWHC3 08:51
PROVIDERS: ATTEND Specialist
DX: M96.1 Postlaminectomy syndrome, not elsewhere classified (principal); M43.26 Fusion of spine, lumbar region; Z88.1 Allergy status to other antibiotic agents
CPT/HCPCS: 99211

== ENCOUNTER → 2024-07-15 | Outpatient (CLI) | payer OTHER ==
--- NOTE | 2024-07-15 13:30 | CT ---
EXAMINATION TYPE: CT lumbar spine wo con CT DLP: 1209.2 mGycm, Automated exposure control for dose reduction was used. DATE OF EXAM: 07/15/2024 11:26 AM COMPARISON: MRI lumbar spine 11/04/2023, 02/02/2022, lumbar spine radiographs 10/29/2023, CT lumbar spin e 04/10/2017. CLINICAL INDICATION:Male, 54 years old with history of M48.02 M47.26 M54.50 LOW BACK PAIN; PHH, BACK PAIN, pain TECHNIQUE: Multiple axial images were obtained from the midportion of T11 through the sacroiliac leonie nts. Soft tissue and bone windows in coronal and sagittal planes were obtained and reviewed. Contrast used: none. Oral contrast used: none. FINDINGS: Alignment: There are 5 lumbar type vertebral bodies. No spondylolisthesis. Mild levocurvature of the lumbar spine with apex at L2. Bone: Postsurgical changes from posterior lumbar fusion with bilateral pedicular screws and rods at L3-L4 with laminectomy change. Hardware appears intact. Anterior hypertrophic osteophytosis at L2-L4. Advanced endplate sclerosis at L5-S1. No evidence of fracture is identified. Discs: Disc spacers are identified at L2-L3 and L3-L4 in appropriate position. Prominent vacuum disc disease at L5-S1 and to a lesser degree within the T12-L1 disc. T12-L1: No spinal canal or neural foraminal stenosis is identified. L1-L2: No spinal canal or neural foraminal stenosis is identified. L2-L3: Streak artifact from postsurgical change significantly limits evaluation. No gross evidence of significant central canal stenosis. Bilateral facet arthropathy. Mild to moderate bilateral neural f oraminal stenosis. L3-L4: Streak artifact from postsurgical change significantly limits evaluation. No gross evidence of significant central canal stenosis. Bilateral facet arthropathy. No gross evidence of significant le ft neural foraminal stenosis. At least mild right neural foraminal stenosis suggested. L4-L5: Broad-based disc bulge with mild effacement of the anterior thecal sac. Mild central canal shimon nosis. Bilateral facet arthropathy. Mild bilateral neural foraminal stenosis. L5-S1: Broad-based disc bulge with minimal effacement of the anterior thecal sac. Bilateral facet art hropathy. Moderate right and moderate to severe left neural foraminal stenosis. Other: None IMPRESSION: 1. No evidence for spinal fracture. 2. Postsurgical changes of the lumbar spine as described above. Hardware appears intact with stable a lignment. 3. Moderate multilevel degenerative disc disease and facet arthropathy of the lower lumbar spine as d escribed above. [facility], , 07/15/2024 1:27 PM
== END | disposition home or self-care (01) ==
LOC: RADCTMAIN 10:54
PROVIDERS: ATTEND Orthopaedic Surgery
DX: M48.02 Spinal stenosis, cervical region (principal); M47.26 Other spondylosis with radiculopathy, lumbar region; M62.81 Muscle weakness (generalized); M51.16 Intervertebral disc disorders with radiculopathy, lumbar region
CPT/HCPCS: 72131

== ENCOUNTER 2024-11-03 10:38 | Emergency (ER) | payer OTHER ==
--- NOTE | 2024-11-03 11:01 | ED ---
General Adult HPI - General Source: patient, RN notes reviewed Mode of arrival: ambulatory Limitations: no limitations <Cyn Coker - Last Filed: 11/03/24 11:01> - General Source: patient, RN notes reviewed Mode of arrival: ambulatory Limitations: no limitations <Amilcar Jackson - Last Filed: 11/03/24 17:57> - General Stated complaint: Abd pain Time Seen by Provider: 11/03/24 11:01 - History of Present Illness Initial comments: Quick note: 54-year male presented the ER for evaluation of abdominal cramping. He states it has been ongoing for the past 3 days. He has tried [id number] Pepto-Bismol, Araseli-Kinney and antinausea medication without relief. He states he does not upper abdominal discomfort. He denies vomiting, diarrhea or urinary complaints. No fevers. (Cyn Coker) Patient is a 54-year-old male present to the emergency department with concerns with abdominal pain. Symptoms have been occurring for several days. Patient has cramping and full sensation. Patient has not had a good bowel movement in a few days. Patient has nausea without vomiting. No history of chronic similar symptoms previously. Discomfort is epigastric. Patient was seen in the waiting room secondary to no rooms are available otherwise. (Amilcar Jackson) - Related Data Home Medications Medication Instructions Recorded Confirmed lisinopriL [Zestril] 2.5 mg PO DAILY 09/02/23 04/16/24 Cetirizine HCl 10 mg PO DAILY 10/29/23 04/16/24 HYDROcodone/APAP 10-325MG [[place] 1 tab PO QID PRN 10/29/23 04/16/24 10-325] Latanoprost [Latanoprost 0.005%] 1 drop BOTH EYES HS 10/29/23 04/16/24 Tirzepatide [Mounjaro] 7.5 mg SQ MO 10/29/23 04/16/24 Pregabalin [Lyrica] 150 mg PO TID 01/30/24 04/16/24 Albuterol Inhaler [Ventolin Hfa 2 puff INHALATION Q4-6H PRN 02/04/24 04/16/24 Inhaler] Baclofen 10 mg PO TID PRN 09/24/24 12/05/24 Previous Rx's Medication Instructions Recorded Naproxen [Naprosyn] 500 mg PO BID 90 Days #180 tab 04/16/24 Ondansetron Odt [Zofran Odt] 4 mg PO Q8HR PRN #10 tab 11/03/24 Allergies Allergy/AdvReac Type Severity Reaction Status Date / Time erythromycin base Allergy Unknown Verified 11/03/24 11:36 Childhood Review of Systems ROS Other: All systems not noted in ROS Statement are negative. <Cyn Coker - Last Filed: 11/03/24 11:01> ROS Other: All systems not noted in ROS Statement are negative. Constitutional: Denies: fever Eyes: Denies: eye pain ENT: Denies: ear pain Respiratory: Denies: cough Cardiovascular: Denies: chest pain Gastrointestinal: Reports: abdominal pain, nausea, constipation. Denies: vomiting, diarrhea Musculoskeletal: Denies: back pain Skin: Denies: rash Neurological: Denies: weakness <Amilcar Jackson - Last Filed: 11/03/24 17:57> ROS Statement: Those systems with pertinent positive or pertinent negative responses have been documented in the HPI. Past Medical History Past Medical History: Asthma, Diabetes Mellitus, Eye Disorder, Hypertension Additional Past Medical History / Comment(s): low Hgb,hx infection in bone of 2nd toe rt foot-(NOVEMBER 2019), BACK AND SHOULDER PAIN, asthma only reactive with severe cold air. 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 Back surgery x 3, PAIN CLINIC PROCEDURES, COLONOSCOPY, SUTURES TO RT FOREFINGER FOR AMPUTATION-SUTURES HAVE BEEN REMOVED. RT CATARACT REMOVED WITH LENS IMPLANT Past Anesthesia/Blood Transfusion Reactions: No Reported Reaction Additional Past Anesthesia/Blood Transfusion Reaction / Comment(s): no hx blood transfusion Smoking Status: Former smoker - Past Family History Mother Family Medical History: No Reported History <Cyn Coker - Last Filed: 11/03/24 11:01> General Exam <Cyn Coker - Last Filed: 11/03/24 11:01> Limitations: no limitations General appearance: alert Head exam: Present: normocephalic Eye exam: Present: normal appearance Neck exam: Present: normal inspection Respiratory exam: Present: normal lung sounds bilaterally Cardiovascular Exam: Present: regular rate, normal rhythm Expanded Peripheral pulses: 2+: Posterior Tibialis (R), Posterior Tibialis (L) GI/Abdominal exam: Present: soft, tenderness (Mild epigastric tenderness to palpation), normal bowel sounds. Absent: distended, guarding, rebound, rigid, pulsatile mass Extremities exam: Present: normal inspection Neurological exam: Present: alert Psychiatric exam: Present: normal affect, normal mood Skin exam: Present: normal color <Amilcar Jackson - Last Filed: 11/03/24 17:57> - General Exam Comments Initial Comments: Visual Physical Exam Vital signs reviewed General: Well-appearing, nontoxic, no acute distress. Head: Normocephalic, atraumatic Eyes: PERRLA, EOMI ENT: Airway patent Chest: Nonlabored breathing Skin: No visual rash, normal skin tone Neuro: Alert and oriented 3 Musculoskeletal: No gross abnormalities (Cyn Coker) Course Vital Signs 11/03/24 11/03/24 11:36 17:38 Temperature 98.1 F Pulse Rate 94 94 Respiratory 18 16 Rate Blood Pressure 161/88 179/109 O2 Sat by Pulse 100 100 Oximetry Medical Decision Making <Cyn Coker - Last Filed: 11/03/24 11:01> - Lab Data Result diagrams: 11/03/24 12:59 11/03/24 12:59 <Amilcar Jackson - Last Filed: 11/03/24 17:57> - Medical Decision Making I performed the quick note portion of this chart. Electronically signed by Cyn Coker PA-C (Cyn Coker) Was pt. sent in by a medical professional or institution ([facility], YEAST CULTURE DEVELOPER, urgent care, hospital, or longterm...) When possible be specific @ -No Did you speak to anyone other than the patient for history (EMS, parent, family, police, friend...)? What history was obtained from this source @ -No Did you review nursing and triage notes (agree or disagree)? Why? @ -I reviewed and agree with nursing and triage notes Were old charts reviewed (outside hosp., previous admission, EMS record, old EKG, old radiological studies, urgent care reports/EKG's, longterm records)? Report findings @ -No old charts were reviewed Differential Diagnosis (chest pain, altered mental status, abdominal pain women, abdominal pain men, vaginal bleeding, weakness, fever, dyspnea, syncope, headache, dizziness, GI bleed, back pain, seizure, CVA, palpatations, mental health, musculoskeletal)? @ -Differential Abdominal Pain Men: Appendicitis, cholecystitis, diverticulosis, ischemic bowel, pancreatitis, hepatitis, UTI, gastroenteritis, AAA, incarcerated hernia, bowel obstruction, constipation, inflammatory bowel, hepatitis, peptic ulcer disease, splenic inf arction, perforated viscus, testicular torsion, this is not meant to be an all- inclusive list EKG interpreted by me (3pts min.). @ -As above X-rays interpreted by me (1pt min.). @ -Abdominal x-ray with nonspecific findings CT interpreted by me (1pt min.). @ -CT scan abdomen pelvis without acute abnormality U/S interpreted by me (1pt. min.). @ -None done What testing was considered but not performed or refused? (CT, X-rays, U/S, labs)? Why? @ -None What meds were considered but not given or refused? Why? @ -None Did you discuss the management of the patient with other professionals (prof essionals i.e. , PA, YEAST CULTURE DEVELOPER, lab, RT, psych nurse, child welfare social worker, case management assistant, teacher, sheriff's officer, director of casework)? Give summary @ -No Was smoking cessation discussed for >3mins.? @ -No Was critical care preformed (if so, how long)? @ -No Were there social determinants of health that impacted care today? How? (Homelessness, low income, unemployed, alcoholism, drug addiction, transportation, low edu. Level, literacy, decrease access to med. care, prison, rehab)? @ -No Was there de-escalation of care discussed even if they declined (Discuss DNR or withdrawal of care, Hospice)? DNR status @ -No What co-morbidities impacted this encounter? (DM, HTN, Smoking, COPD, CAD, Cancer, CVA, ARF, Chemo, Hep., AIDS, mental health diagnosis, sleep apnea, morbid obesity)? @ -None Was patient admitted / discharged? Hospital course, mention meds given and route, prescriptions, significant lab abnormalities, going to OR and other pertinent info. @ -Patient presents with nausea and epigastric pain. On reevaluation after medication and diagnostic studies patient feels much better and is symptom-free. Patient is comfortable discharge home. Patient adds that he has been taking Tums and that helps his symptoms for around 45 minutes to an hour. Patient advised [id number] Pepcid and will be prescribed nausea medication. Patient recommended close follow-up with his doctor and consider endoscopy. Undiagnosed new problem with uncertain prognosis? @ -No Drug Therapy requiring intensive monitoring for toxicity (Heparin, Nitro, Insulin, Cardizem)? @ -No Were any procedures done? @ -No Diagnosis/symptom? @ -Epigastric abdominal pain Acute, or Chronic, or Acute on Chronic? @ -Acute Uncomplicated (without systemic symptoms) or Complicated (systemic symptoms)? @ -Default Side effects of treatment? @ -No Exacerbation, Progression, or Severe Exacerbation? @ -No Poses a threat to life or bodily function? How? (Chest pain, [place], MA, pneumonia, PE, COPD, DKA, ARF, appy, cholecystitis, CVA, Diverticulitis, Homicidal, Suicidal, threat to staff... and all critical care pts) @ -No (Amilcar Jackson) - Lab Data Lab Results 11/03/24 11/03/24 11/03/24 Range/Units 12:59 12:59 12:59 WBC 4.99 (4.50-10.00) 10*3/uL RBC 4.53 (4.40-5.60) 10*6/uL Hgb 14.1 (13.0-17.0) g/dL Hct 41.0 (39.6-50.0) % MCV 90.5 (80.0-97.0) fL MCH 31.1 (27.0-32.0) pg MCHC 34.4 (32.0-37.0) g/dL Plt Count 321 (140-440) 10*3/uL MPV 10.4 (9.5-12.2) fL Immature Gran % (Auto) 0 % Neutrophils % 60.9 % Lymphocytes % 26.5 % Monocytes % 10.2 % Eosinophils % 1.8 % Basophils % 0.6 % Immature Gran # 0.00 (0.00-0.04) 10*3/uL Neutrophils # 3.04 (1.80-7.70) 10*3/uL Lymphocytes # 1.32 (0.90-5.00) 10*3/uL Monocytes # 0.51 (0.20-1.00) 10*3/uL Eosinophils # 0.09 (0.04-0.35) 10*3/uL Basophils # 0.03 (0.00-0.10) 10*3/uL Sodium 139 (137-145) mmol/L Potassium 4.6 (3.5-5.1) mmol/L Chloride 105 (98-107) mmol/L Carbon Dioxide 23 (22-30) mmol/L Anion Gap 11 mmol/L BUN 15 (9-20) mg/dL Creatinine 1.07 (0.66-1.25) mg/dL Est GFR (CKD-EPI)AfAm >90 (>60 ml/min/1.73 sqM) Est GFR (CKD-EPI)NonAf 78 (>60 ml/min/1.73 sqM) Glucose 203 H (74-99) mg/dL Plasma Lactic Acid Isai 1.3 (0.7-2.0) mmol/L Calcium 10.7 H (8.4-10.2) mg/dL Total Bilirubin 1.0 (0.2-1.3) mg/dL AST 26 (17-59) U/L ALT 19 (4-49) U/L Alkaline Phosphatase 108 (38-126) U/L Total Protein 8.6 H (6.3-8.2) g/dL Albumin 5.0 (3.5-5.0) g/dL Amylase 66 (30-110) U/L Lipase 80 (23-300) U/L Disposition <Cny Coker - Last Filed: 11/03/24 11:01> Is patient prescribed a controlled substance at d/c from ED?: No Time of Disposition: 17:57 <Amilcar Jackson - Last Filed: 11/03/24 17:57> Clinical Impression: Epigastric abdominal pain Disposition: HOME SELF-CARE Condition: Stable Instructions (If sedation given, give patient instructions): Abdominal Pain (ED) Additional Instructions: [id number] Pepcid 20 mg twice daily. Prescription for nausea medicine sent to pharmacy. Please do follow-up with your primary care physician in the next couple of days for recheck. Consider endoscopy. Return for increased pain, worsening or changing symptoms, uncontrolled vomiting, or other concerns. Prescriptions: Ondansetron Odt [Zofran Odt] 4 mg PO Q8HR PRN #10 tab PRN Reason: Nausea Referrals: Caren Mars DO [Primary Care Provider] - 1-2 days
[2024-11-03 11:40] VITALS: PULSE 94; TEMP 98.1
[2024-11-03 13:10] LABS: Basophils # (A) 0.03 10*3/uL (0.00-0.10); Basophils % (A) 0.6 %; Eosinophils # (A) 0.09 10*3/uL (0.04-0.35); Eosinophils % (A) 1.8 %; HGB 14.1 g/dL (13.0-17.0); Lymphocytes # (A) 1.32 10*3/uL (0.90-5.00); Lymphocytes % (A) 26.5 %; MCH 31.1 pg (27.0-32.0); MCHC 34.4 g/dL (32.0-37.0); MCV 90.5 fL (80.0-97.0); Mean Platelet Volume 10.4 fL (9.5-12.2); Monocytes # (A) 0.51 10*3/uL (0.20-1.00); Monocytes % (A) 10.2 %; Neutrophils # (A) 3.04 10*3/uL (1.80-7.70); Neutrophils % (A) 60.9 %; Platelet Count 321 10*3/uL (140-440); RBC 4.53 10*6/uL (4.40-5.60); RDW 13.6 % (11.5-14.5); WBC 4.99 10*3/uL (4.50-10.00)
--- NOTE | 2024-11-03 13:20 | XR ---
EXAMINATION TYPE: XR KUB DATE OF EXAM: 11/03/2024 12:33 PM COMPARISON: None. CLINICAL INDICATION: Male, 54 years old with history of No BM x 5 days, TECHNIQUE: XR KUB view(s) obtained. FINDINGS: No free air is under the diaphragm. No suspicious differential air-fluid levels evident. A couple of small air-fluid levels may be within the ascending colon region. No mass effect is evident . Normal colonic bowel gas is present. No significant fecal retention is identified. Psoas margins are normal. No organomegaly is present. Postsurgical changes are within the mid lumbar spine. IMPRESSION: 1. No suspicious fecal retention or constipation. 2. Few scattered air-fluid levels within the colon are nonspecific. [facility], , 11/03/2024 1:18 PM
[2024-11-03 13:44] LABS: ALT 19 U/L (4-49); AST 26 U/L (17-59); African American GFR (CKD) >90 (>60 ml/min/1.73 sqM); Alkaline Phosphatase 108 U/L (38-126); Amylase 66 U/L (30-110); Anion Gap 11 mmol/L; Blood Urea Nitrogen 15 mg/dL (9-20); Calcium 10.7 mg/dL (8.4-10.2); Carbon Dioxide 23 mmol/L (22-30); Chloride 105 mmol/L (98-107); Glucose 203 mg/dL (74-99); Lipase 80 U/L (23-300); Non-African American GFR(CKD) 78 (>60 ml/min/1.73 sqM); Potassium 4.6 mmol/L (3.5-5.1); Sodium 139 mmol/L (137-145); Total Protein 8.6 g/dL (6.3-8.2)
[2024-11-03] MEDS: SODIUM CHLORIDE 0.9% 1,000 ML IV STA (16:43)
[2024-11-03] MEDS: ONDANSETRON 4 MG/2 ML VIAL IVP STA (16:45)
[2024-11-03] MEDS: FAMOTIDINE 20 MG/2 ML VIAL IV STA (16:46)
[2024-11-03] MEDS: HYDROmorphone 1 MG/ML 1 ML SYRINGE IVP STA (16:49)
[2024-11-03 17:40] VITALS: BP 179/109; RESP 16
--- NOTE | 2024-11-03 17:45 | CT ---
EXAMINATION TYPE: CT abdomen pelvis w con DATE OF EXAM: 11/03/2024 5:23 PM COMPARISON: None. CLINICAL INDICATION: Male, 54 years old with history of abp; epigastric pain TECHNIQUE: Axial CT abdomen pelvis w con;Sagittal and coronal reformats were created on a separate w orkstation. Contrast used:100 ml mL of Isovue 300 with IV Contrast, (none if empty) Oral contrast used: without Oral Contrast (none if empty) CT DLP: 1390.8 mGycm, Automated exposure control for dose reduction was used. FINDINGS: LOWER CHEST: Unremarkable ABDOMEN LIVER: Unremarkable GALLBLADDER AND BILE DUCTS: Unremarkable. PANCREAS: Unremarkable. SPLEEN: Unremarkable. ADRENAL GLANDS: Unremarkable. KIDNEYS AND URETERS: No evidence of hydronephrosis or renal calculus. The ureters are unremarkable. PELVIS BLADDER: No evidence for wall thickening or mass given limitations of exam. REPRODUCTIVE: Unremarkable. ABDOMEN & PELVIS STOMACH AND BOWEL: Stomach and duodenum are unremarkable. Scattered diverticula are noted throughout the colon. No evidence of bowel obstruction. Appendix is normal. PERITONEUM/RETROPERITONEUM: No evidence of pneumoperitoneum or free fluid. VASCULATURE: No evidence of aortic aneurysm. MUSCULOSKELETAL: No acute osseous abnormalities. Posterior fusion hardware visualized measuring L3-L4 with previous transpedicular screw tracks visualized involving the L3 vertebral body. L2-L3 and L3-L 4 intervertebral disc spacer device is present. LYMPH NODES: No gross evidence for lymphadenopathy. SOFT TISSUE/ABDOMINAL WALL: Unremarkable IMPRESSION: No acute abnormality in the abdomen/pelvis. [facility], , 11/03/2024 5:43 PM
== END 2024-11-03 18:23 | disposition home or self-care (01) ==
LOC: EC 10:38
DX: R10.13 Epigastric pain (principal); Z87.891 Personal history of nicotine dependence; Z88.1 Allergy status to other antibiotic agents
CPT/HCPCS: 36415; 93005; 80053; 82150; 83605; 83690; 85025; 74018; 74177; 99284; 96374; 96375 ×2; 96361; J2405; J1171; Q9967; J1308

== ENCOUNTER → 2024-11-04 | Outpatient (CLI) | payer OTHER | END | disposition home or self-care (01) | LOC: LABPAT 11:35 | PROVIDERS: ATTEND Orthopaedic Surgery | DX: Z01.812 Encounter for preprocedural laboratory examination (principal); M48.061 Spinal stenosis, lumbar region without neurogenic claudication; Z22.322 Carrier or suspected carrier of Methicillin resistant Staphylococcus aureus | CPT/HCPCS: 86850; 86900; 86901; 87070 ==

== ENCOUNTER 2024-11-10 08:30 | Inpatient (IN) | payer OTHER ==
[2024-11-04 15:34] VITALS: BMI 29.3
--- NOTE | 2024-11-10 07:02 | P.HPOR ---
History of Present Illness H&P Date: 11/04/24 .D:Date: 11/04/24 : 10:51am .T:Title: PRE OP Spine Surgery Preoperative Assessment and Risk Review Mr. Coe is presenting for evaluation of LOW BACK PAIN, LE WEAKNESS/PAIN. It was my pleasure to have seen and examined Mr. Coe. In our visit today we have had a chance to go over subjective complaints, physical examination findings and treatments including the natural course history without intervention and various interventional options. The patients imaging demonstrates: * L3-S1 SEVERE STENOSIS L3-S1 SEVERE SPONDYLOSIS WITH DISC COLLAPSE, HERNIATION AND FACET ARTTHROPATHY WELL LIGAMENTAL HYPERTROPHY On physical exam, Mr. Coe demonstrates: * NEUROGENIC CLAUDICATION LOWER EXTREMITY RADICULOPATHY WITH WEAKNESS LOW BACK PAIN, SEVERE DEBILITY RELATED TO THIS I have explained to the patient that as their condition progresses it will cause further neurological deficits and eventual paralysis. Based on the patients imaging, physical exam, and the rapid progression and disabling nature of their symptoms, at this time I recommend surgery in the form of a: L3-PELVIS Revision decompression and fusion . I discussed the risk and benefits of this procedure at length with Mr. Coe. The patient [significant other] agreed to considered pursuing the procedure abovementioned. Prior to surgery, she should follow up with her PCP (Cardio, ID, IM etc) for clearance. Questions were invited and answered, and the patient wishes to proceed as outlined below. IMPRESSION: 1. 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 NEUROGENIC CLAUDICATION 3. LOW BACK PAIN 4. BLE WEAKNESS Currently, I am recommendin.L3-PELVIS Revision decompression and fusion 2.Review of surgical risks and benefits as well as an educational packet on the proposed surgical procedure. 3. Follow pre-sugical checklist and recommendations Risks: All surgical procedures come with inherent risks, including those related to positioning, anesthesia, intraoperative findings, and postoperative complications. It is important to understand that surgery does not come with any guarantee of a successful outcome as complications and adverse events are always possible. The patient was given a handout in office today discussing the surgical procedure and risks associated with the intervention, both of which were discussed with the patient. These risks include but are not limited to the following: * Experiencing same, different or even worse symptoms in back, neck, arms, or legs compared to before surgery. Requiring further surgery or other forms of treatment presently or at some time in the future at same or other levels of the intended spine surgery. On an extreme but fortunately relatively rare basis severe complication such as blindness, stroke, heart attack, temporary and/or permanent nerve injury, paralysis, coma, or may occur, sometimes without known explanation. Surgical complications may include but are not limited to risk of infe ction, fluid accumulation in the surgical dissection site, including a seroma or hematoma, that requires additional surgery, wound drainage, bleeding, new numbness or weakness, vision changes/loss, spinal fluid leakage, non-healing and/or infected incision, headaches, difficulty or inability to swallow, hoarseness, hemopneumothorax, pneumothorax, impotence, retrograde ejaculation, vaginal dryness; injury to nerves, spinal cord, blood vessels, lymphatics or other vital organs (i.e., bowel injury, injury to the great vessels); heterotopic bone formation; complications related to the hardware such as screws, rods, cages including misplaced hardware, device failure, instrumentation at the wrong spine level, hardware fracture/breakage, or hardware loosening; vertebral failure of the spinal column above or below the newly placed hardware; retained surgical instrumentations or devices and the need for further surgery. * Medical risks of the planned spine surgery include but are not limited to generalized Infections to the whole body or local areas outside of the surgical site (sepsis), heart attack, bleeding, anaphylaxis, meningitis, seizure, epilepsy, hearing loss, burn apodaca, laceration of the head or other areas of the body, bruising, hypersensitivity of the skin, bladder over distension; allergic reaction; shoulder injury related to positioning; fat, blood and air clots to other areas of the body like heart, lungs, brain; failure of internal organs such as lungs, kidneys, liver and excessive bleeding. If blood transfusions are necessary, note that transfusions may caus e intolerance reactions such as anaphylaxis or other complex reactions. Despite best efforts, the results of spine surgery might not heal in terms of bone, soft tissues such as skin, fascia, ligaments, and joints. Additionally, in order to achieve best possible results, spine surgery may be carried out beyond the initially planned levels and involve decompression, fusion including insertion of hardware at levels other than the original intended area of surgical interest change some portions of the procedure in order to ensure the best possible outcomes. With spine surgery and spinal fusion, there are different off label uses of instrumentation (devices, implants and hardware) as well as biological substances (bone morphogenic proteins, demineralized bone matrix) as well as using extra bone from allograft sources (i.e. cadaver bone) or autograft (iliac crest bone, ribs, or the spine itself). The patient has been given information about these practices and their inherent risks and benefits. [facility] is an educational center that serves as a training facility for neurosurgical and orthopedic LUNCH WAGON OPERATOR and Nursing students. Physician assistants are medically trained surgical providers who function in the outpatient, inpatient, and operating room setting under the direct supervision of the attending surgeon. [facility] has multiple operating rooms with single and overlapping rooms running daily. They currently function under the required guidelines as produced by the [facility] Finance Committee with regards to the overlapping rooms and will continue to comply with changes to this policy as they occur. The requirements include and are complied with as follows: (1) the critical portions of the overlapping rooms will not occur at the same time, (2) the attending physician will be physically present during the critical portions of the procedure and immediately available during the entire case, and (3) a back-up attending is designated should the primary attending not be immediately available. The patient has had a chance to review all the listed information, has been given print outs detailing this information, and has had all his/her questions answered to their satisfaction. It was my pleasure to have seen and examined Mr. Coe. In our visit today we have had a chance to go over my understanding of our patient's current condition, the natural course history without intervention and various interventional options. Questions were invited and answered, and the patient wishes to proceed as outlined above. I have seen and examined the patient for 25 minutes and we have spent more than 50% of the time in repeat and detailed counseling about the patient's condition, its natural course history with out and as much as can be predicted with surgery and re-review of various surgical treatment options. In conclusion, Mr. Coe and [his/her spouse/partner] requested we proceed with the above suggested surgery and are willing to accept risks and limitations of the suggested surgery as nature of the disease process and our best attempts at treatment for the condition. Thank you again for allowing us to be part of your patient's care. Please don't hesitate to contact me if you have any further questions. # SIGNED BY Mo Roman (TANNA)11/06/2024 10:05AM Past Medical History Past Medical History: Asthma, Diabetes Mellitus, Eye Disorder, Hypertension, Osteoarthritis (OA) Additional Past Medical History / Comment(s): Hx low Hgb, hx infection in bone of 2nd toe on right foot(November 2019), chronic back pain, asthma only reactive with severe cold air, bilateral glaucoma. Patient states had nausea and abdominal pain for 3 days, came to [facility] ER 11/03/24, had work up and was told everything was ok, was prescribed Zofran and told to get Pepcid, states feeling better today. History of Any Multi-Drug Resistant Organisms: None Reported Past Surgical History: Back Surgery, Orthopedic Surgery Additional Past Surgical History / Comment(s): Right carpal tunnel, right elbow surgery, right shoulder surgery, back surgery X3, PAIN CLINIC PROCEDURES, COLONOSCOPY, RIGHT FOREFINGER AMPUTATION, BILATERAL CATARACTS REMOVED WITH LENS IMPLANTS. Past Anesthesia/Blood Transfusion Reactions: No Reported Reaction Additional Past Anesthesia/Blood Transfusion Reaction / Comment(s): No hx blood transfusion. Smoking Status: Former smoker - Past Family History Mother Family Medical History: No Reported History Medications and Allergies Home Medications Medication Instructions Recorded Confirmed Type lisinopriL [Zestril] 2.5 mg PO DAILY 09/02/23 11/04/24 History Cetirizine HCl 10 mg PO DAILY 10/29/23 11/04/24 History HYDROcodone/APAP 10-325MG [Cos Cob 1 tab PO QID PRN 10/29/23 11/04/24 History 10-325] Latanoprost [Latanoprost 0.005%] 1 drop BOTH EYES HS 10/29/23 11/04/24 History Tirzepatide [Mounjaro] 7.5 mg SQ MO 10/29/23 11/04/24 History Pregabalin [Lyrica] 150 mg PO TID 01/30/24 11/04/24 History Albuterol Inhaler [Ventolin Hfa 2 puff INHALATION Q4-6H PRN 02/04/24 11/04/24 History Inhaler] Naproxen [Naprosyn] 500 mg PO BID 90 Days #180 tab 04/16/24 11/04/24 Rx Ondansetron Odt [Zofran Odt] 4 mg PO Q8HR PRN #10 tab 11/03/24 11/04/24 Rx Cyclobenzaprine [Flexeril] 5 mg PO TID PRN 11/04/24 11/04/24 History Allergies Allergy/AdvReac Type Severity Reaction Status Date / Time erythromycin base Allergy Unknown Verified 11/04/24 15:05 Childhood Physical Examination Osteopathic Statement: *. No significant issues noted on an osteopathic structural exam other than those noted in the History and Physical/Consult.
[~2024-11-10 08:30] MED LIST changes: -MIDAZOLAM 2 MG/2 ML VIAL ONE; -ROPIVACAINE 5MG/ML 20ML VIAL ONE; +TRANEXAMIC 1,000 MG/100ML-NACL 1,000 MG in SALINE 1 100ML.BAG IVPB PRN; +fentaNYL (PF) 50 MCG/ML 2 ML AMP IV PRN; -fentaNYL (PF) 50 MCG/ML 2 ML AMP ONE
[2024-11-10] MEDS: IV FLUID CONTINUATION 1,000 ML IV ONE ×2 (08:53→09:45)
[2024-11-10 09:21] LABS: Glucose,Whole Blood 180 mg/dL (70-110)
[2024-11-10] MEDS: DEXAMETHASONE SOD PHOSPHATE 4 MG/ML 1 ML VIAL IV ONE (09:27)
[2024-11-10] MEDS: GABAPENTIN 300 MG CAP PO PRN (09:27)
[2024-11-10] MEDS: ACETAMINOPHEN TAB 500 MG TAB PO PRN (09:27)
[2024-11-10] MEDS: ONDANSETRON 4 MG/2 ML VIAL IVP PRN (09:27)
[2024-11-10] MEDS: LACTATED RINGERS 1,000 ML IV SCH (09:28)
[2024-11-10] MEDS ORDERED: KETAMINE HCL IN 0.9 % NACL 50 MG/5 ML SYRINGE ONE (09:53)
[2024-11-10] MEDS ORDERED: fentaNYL (PF) 50 MCG/ML 2 ML AMP ONE (09:53)
[2024-11-10] MEDS ORDERED: MIDAZOLAM 2 MG/2 ML VIAL ONE (09:53)
[2024-11-10] MEDS ORDERED: LIDOCAINE 1% INJ 10MG/ML (20 ML MDV) ONE (09:53)
[2024-11-10] MEDS ORDERED: HYDROmorphone (PF) 1 MG/ML ONE (09:53)
[2024-11-10] MEDS ORDERED: TRANEXAMIC 1,000 MG/100ML-NACL PREMIX BAG ONE (09:53)
[2024-11-10] MEDS ORDERED: GLYCOPYRROLATE 0.2 MG/ML 2 ML VIAL ONE (09:53)
[2024-11-10] MEDS ORDERED: ROCURONIUM 10 MG/ML (5 ML VIAL) IV ONE (09:53)
[2024-11-10] MEDS ORDERED: SUCCINYLCHOLINE CHLORIDE 200 MG/10 ML VIAL IV ONE (09:53)
[2024-11-10] MEDS ORDERED: PROPOFOL 10 MG/ML 20 ML VIAL IV ONE (09:53)
[2024-11-10] MEDS ORDERED: NEOSTIGMINE 1 MG/ML 10 ML VIAL ONE (09:53)
[2024-11-10] MEDS ORDERED: METOPROLOL TARTRATE 5 MG/5 ML VIAL IVP ONE (09:53)
[2024-11-10] MEDS: GENTAMICIN 80 MG in SODIUM CHLORIDE 0.9% IRRIGATIO 3,000 ML IRRIGATION ONE (10:41)
[2024-11-10] MEDS: ceFAZolin 3,000 MG in SODIUM CHLORIDE 0.9% IRRIGATIO 3,000 ML IRRIGATION ONE (10:41)
[2024-11-10] MEDS: THROMBIN (BOVINE) 5,000 UNIT VIAL TOPICAL ONE (10:41)
[2024-11-10] MEDS: LACTATED RINGERS 1,000 ML IV ONE ×2 (11:10→15:03)
[2024-11-10] MEDS: VANCOMYCIN 1,000 MG VIAL MISCELLANE ONE (14:04)
--- NOTE | 2024-11-10 15:18 | P.OP ---
Date of Procedure: 11/10/24 Preoperative Diagnosis: IMPRESSION: 1. 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 NEUROGENIC CLAUDICATION 3. LOW BACK PAIN 4. BLE WEAKNESS Postoperative Diagnosis: IMPRESSION: 1. 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 NEUROGENIC CLAUDICATION 3. LOW BACK PAIN 4. BLE WEAKNESS Procedure(s) Performed: 1. L5-S1 INTRADISCAL, 3 COLUMN OSTEOTOMY, FOR DEFORMITY CORRECTION 2. L4-5 POSTEROLATERAL AND INTERBODY FUSION 3. L5-S1 POSTEROLATERAL AND INTERBODY FUSION 4. BILATERAL OPEN SACROILLIAC JOINT FUSION FOR LONG CONSTRUCT STABILITY AND SACROILITIS 5. SEGMENTAL INSTRUMENTATION L3-PELVIS 6. ATTACHMENT OF THE CAUDAL END OF THE SEGMENT TO THE BONY PELVIS NOT SACRUM 7. BILATERAL LAMINECTOMY, COMPLETE FACETECTOMY AND FORAMINOTOMY L3-4, L4-5 AND L5-S1 FOR DEFORMITY CORRECTION, COMPLETE NEURAL DECOMPRESSION AND CAGE PLACEMENT 8. INSERTION OF BIOMECHANICAL DEVICES L4-5 AND L5-S1 CAGES, x2 9. REMOVAL OF HARDWARE L3-4 10. EXPLORATION OF FUSION L2-3 AND L3-4 11. USE OF Bioincept NAVIGATION FOR SCREW PLACEMENT USE OF IONM ALL SCREWS TESTING > 18 mA Implants: -QUINN EVEREST RODS AND SCREWS -SI BONE GRANIT PELVIC SCREWS -SI BONE TORQUE SCREWS SI FUSION -GLOBUS SABLE CAGES X2 9-17 10 AND 12 MM LONG -AUTOGRAFT, ALLOGRAFT, ARTHROCELL, ALLOCELL, CONTOUR Anesthesia: GETA Surgeon: Mo Roman Air Export Operations Agent #1: Milton Marcano (WAS PRESENT AND ASSISTED WITH ALL ASPECTS OF THE CASE FROM POSITION TO DRESSING PLACEMENT) Estimated Blood Loss (ml): 500 IV fluids (ml): 2,300 Urine output (ml): 400 Pathology: none sent Condition: stable Disposition: PACU Indications for Procedure: Mr. Coe is presenting for evaluation of LOW BACK PAIN, LE WEAKNESS/PAIN. It was my pleasure to have seen and examined Mr. Coe. In our visit today we have had a chance to go over subjective complaints, physical examination findings and treatments including the natural course history without intervention and various interventional options. The patients imaging demonstrates: * L3-S1 SEVERE STENOSIS L3-S1 SEVERE SPONDYLOSIS WITH DISC COLLAPSE, HERNIATION AND FACET ARTTHROPATHY WELL LIGAMENTAL HYPERTROPHY On physical exam, Mr. Coe demonstrates: * NEUROGENIC CLAUDICATION LOWER EXTREMITY RADICULOPATHY WITH WEAKNESS LOW BACK PAIN, SEVERE DEBILITY RELATED TO THIS I have explained to the patient that as their condition progresses it will cause further neurological deficits and eventual paralysis. Based on the patients imaging, physical exam, and the rapid progression and disabling nature of their symptoms, at this time I recommend surgery in the form of a: L3-PELVIS Revision decompression and fusion . I discussed the risk and benefits of this procedure at length with Mr. oCe. The patient [significant other] agreed to considered pursuing the procedure abovementioned. Prior to surgery, she should follow up with her PCP (Cardio, ID, IM etc) for clearance. Questions were invited and answered, and the patient wishes to proceed as outlined below. Currently, I am recommendin.L3-PELVIS Revision decompression and fusion Description of Procedure: REVISION L2-PELVIS DECOMPRESSION AND FUSION (ANGELICA) SI BONE GRANIT PELVIS SCREWS The patient was seen and examined in the preoperative area. All preoperative protocols were followed. Informed consent was obtained, risks and benefits of the procedure were discussed at length. Risks including bleeding infection damage to the surrounding tissue and risk of reoperation were discussed with the patient. Risk of anesthesia up to and including was discussed with the patient. These are outlined in the risk review. They were willing to accept these risks and all the risks of surgery. The patient was given a weight-based dose of antibiotics in the form of 3 g Ancef. The patient was seen and evaluated by the anesthesia team who deemed them fit for surgery. The site was marked, the patient was willing to proceed with the procedure. The patient was transferred to the operative suite by the Department of anesthesia. They were then drifted off to sleep by the department anesthesia and GETA was performed. The patient tolerated this well. Paris catheter was placed by nursing staff, a-traumatically. Once confirmation of lines and ventilation the patient was transferred to a prone Trios spine table very carefully. The head was secured and stable. X Ray confirmed alignment. All bony prominences including wrists, elbows, axilla, chest, hips, and thighs, and feet were padded very well. Special attention was paid to the genitalia, and these were padded accordingly. SCDs were placed on bilateral lower extremities and were connected. Arms were well padded and placed at 90/90 up and out and we ll padded. Safety strap and tape placed on the patient. Once in position, again we confirmed good ventilation capabilities and that lines were running appropriately. The patient's lumbosacral pelvic was then exposed. Hair was removed for incision. 1010s were placed outlining the incision site. Standard alcohol was used to clean the incision site and allowed to dry. C-arm was used to bio-jesus the patient and confirm level for incision which was marked with a skin marker. Operative briefing was performed with all teams and everyone in agreement to proceed. The patient was then prepped and draped in a normal sterile fashion. Timeout was then performed, and all parties agreed with the procedure to be performed. Midline skin incision was then made over the previously bookmarked area and dissection taken down to the lumbosacral fascia which was identified and cleaned with a bartlett. There was excessive sub-q adipose that was obtrusive and needed to be retracted. Once midline was identified, fasciotomy was made over the SP of L1-S1 and pelvis. Subperiosteal dissection was then taken down over the lamina and facet joints and TPs were exposed and trough made posterolateral. TPs were then decorticated with a high speed siri for lateral fusion. Previous hardware was identified at L3-4 and tested and was loose, this was removed. Fusion was explored at this level. At L3-[address] fusion was detected at L2-[address] fusion noted. Dissection was taken out over the sacrum to the pelvis. SI joint identified and modified Greenberg starting point for pelvic screws identified as well. Retractors placed. Wound was irrigated and lateral image with penfield 4 placed at the pars of L4 confirmed levels for operation. SP clamp was then placed for the [place] navigation tracker and secured. The wound was then filled with NSS and Z-drape. A 3D Ziehm spin was then obtained and registered. Once confirmation of accuracy screws were then placed from L2- Pelvis using navigation. Navigated high speed siri was used to make a air force pilot hole followed by a navigated awl-tap passed through the pedicle into the body. A ball tip probe then confirmed within the pedicle. The screw was then measured and placed using a navigated screwdriver. After screws were placed from L2-S1, AP image confirmed safe placement of screws. Lateral images as well as navigation were then used to place bilateral SI bone Granit pelvic screws. Starting point selected just lateral to the SI joint and S2 pseudo facet. Lateral image taken and siri used to make the air force pilot hole. Gearshift then used to pass into the pelvis under lateral imaging just above the sciatic notch. 30 deg/30deg iliac oblique then taken to confirm within the teardrop and ball tip probe used to probe good bone. The screw was then measured and selected and placed under lateral imaging. This was repeated on the contralateral side. Screws were then visualized and appeared safe. Screws were then tested, and reliably tested screws tested above 20 mA. We then proceeded to decompression and interbody placement. Starting at L5-S1, bilateral laminectomy, complete facetectomy and foraminotomies were performed using high speed bur, Kerrison rongeur. There was exuberant bone formation throughout the entire lumbar spine, making the case very meticulous and difficult. Severe stenosis with dural scarring was noted at L3-S1. There was significant scar tissue surrounding these joints as well as the dura. Once exposed the neural elements were protected and an intradiscal osteotomy, 3 column, was performed for deformity correction at L5-S1. Osteotome was used to make osteotomy in L5 and S1 and for complete disc removal. A box osteotome was then used to widen this bilaterally. This was passed into the anterior 1/3 of L5. This allowed for loosening of this level and correction. A cage was then selected based on shaving and trials. Bleeding endplates were encountered and cartilage removed. Autograft, allograft were then placed anterior to the cage. The cage was then impacted into place under lateral imaging while protecting neural elements. The cage was then expanded into position and showed good lift and correction. Nondenominational of lordosis and height achieved. Meticulous hemostasis then performed. Cage was backfilled with DBM and the area irrigated. At L4-5, bilateral laminectomy, complete facetectomy and foraminotomy were performed. Again exuberant bone formation noted and encountered along with dural scarring and ligamental cyst formations. The elements were then protected, and disc space accessed. Sequential shaving performed until desired height and lordosis. Cage selected, and graft placed anterior to the cage within the disc space. Cage was then placed under lateral image, expanded and had good height, lordosis and deformity correction. The wound was irrigated, and meticulous hemostasis performed once again. At L3-4, bilateral laminectomy, complete facetectomy and foraminotomy were performed with widening of the laminectomy with removal of scar tissues and decompression. . Attention was then drawn to lonnie placement. Rods were selected, measured, cut and bent to appropriate lordosis. They were then secured into pelvic screws b/l. Sequential reduction then done into each screw and set screw placed. Set screws were then final tightened and lateral image showed good lordosis reduction and sagittal alignment. The wound was then irrigated with 3L Ancef irrigation, 3L gentamicin irrigation, 3L Irricept through the case and 1L Betadine at the end of the case and 3L NSS. Surgicel was then placed on the dura, which was inspected and had no injury. Then, in the posterolateral gutter was placed,, Autograft and allograft, contour. This was impacted into position and surgical placed over it. 2g Vanco powder was then placed deep in the wound. A deep, subfascial drain was placed and a superficial facial drain placed. We then proceeded with layered closure. #1 PDS placed in the deep fascia. 0 Vicryl placed in the deep subq, 2-0 placed in the superficial subq and soren placed in the skin. The wound edges approximated very well. The wound was then cleaned with ETOH and dressed with adaptic, 4x4, ABD and tape. Drains sewed into position. IONM confirmed no changes. The patient was then transferred off the [facility] spine table to their hospital bed a-traumatically. Drains continued to hold suction. The patient was then extubated and transferred to the PACU/ICU in stable condition having tolerated the procedure with no complications.
--- NOTE | 2024-11-10 15:38 | XR ---
EXAMINATION TYPE: XR lumbar spine 2 or 3V, FL guidance operating room DATE OF EXAM: 11/10/2024 3:00 PM COMPARISON: Pre Operative Images if available both CT/MRI or plain film CLINICAL INDICATION: Male, 54 years old with history of PLDF LUMBAR STENOSIS; TECHNIQUE: XR lumbar spine 2 or 3V, FL guidance operating room, multiple fluoroscopic images provided for procedure. DAP: 22.6511 mGym2 Gycm2 uGym2 cGycm2 or equivalent. FINDINGS: Fluoroscopic images during internal fixation/arthroplasty demonstrate hardware in appropriate positio n. Hardware appears intact. No immediate complication identified. IMPRESSION: 1. No evidence for intraoperative complication. 2. Please see the operative/procedural note for further details. [facility], , 11/10/2024 3:35 PM
[2024-11-10 16:00] LABS: Glucose,Whole Blood 298 mg/dL (70-110)
[2024-11-10] MEDS: HYDROmorphone 0.5 MG/0.5 ML SYRINGE IVP PRN (16:00)
[2024-11-10] MEDS: INSULIN LISPRO (HumaLOG) 100 UNIT/ML 10 mL VL SQ ONE (16:09)
[2024-11-10] MEDS ORDERED: MAGNESIUM HYDROXIDE 2,400 MG/30 ML CUP PO PRN (16:21)
[2024-11-10] MEDS ORDERED: ONDANSETRON 4 MG/2 ML VIAL IVP PRN (16:21)
[2024-11-10] MEDS ORDERED: NA PHOS,M-B/NA PHOS,DI-BA 133 ML ENEMA RECTAL PRN (16:21)
[2024-11-10] MEDS ORDERED: HYDROcodone/APAP 10-325MG 1 EACH TAB PO PRN (16:21)
[2024-11-10] MEDS ORDERED: CYCLOBENZAPRINE 5 MG TAB PO PRN (16:21)
[2024-11-10] MEDS ORDERED: MAG HYDROX/AL HYDROX/SIMETH 30 ML CUP PO PRN (16:21)
[2024-11-10] MEDS: KETOROLAC 15 MG/ML 1 ML VIAL IVP SCH (16:44)
[2024-11-10 17:01] LABS: Glucose,Whole Blood 283 mg/dL (70-110)
[2024-11-10] MEDS: ACETAMINOPHEN TAB 325 MG TAB PO SCH (17:41)
[2024-11-10] MEDS: HYDROmorphone 1 MG/ML 1 ML SYRINGE IVP PRN (19:48)
[2024-11-10 20:09] LABS: Glucose,Whole Blood 181 mg/dL (70-110)
[2024-11-10] MEDS ORDERED: ALBUTEROL NEBULIZED 2.5 MG/3 ML INHALATION PRN (20:18)
[2024-11-10] MEDS: INSULIN LISPRO (HumaLOG) 100 UNIT/ML 10 mL VL SQ SCH (20:42)
[2024-11-10] MEDS: PREGABALIN 75 MG CAP PO SCH (20:43)
[2024-11-10] MEDS: TAMSULOSIN 0.4 MG CAP.ER.24H PO SCH (20:43)
[2024-11-10] MEDS: LATANOPROST 0.005% OPHTH DROPS 2.5 ML BTL BOTH EYES SCH (21:43)
[2024-11-10] MEDS: diazePAM 5 MG TAB PO PRN (23:02)
[2024-11-10] MEDS: oxyCODONE-APAP 5-325MG 1 EACH TAB PO PRN (23:02)
[2024-11-11 06:15] LABS: Glucose,Whole Blood 187 mg/dL (70-110)
[2024-11-11] MEDS: HYDROmorphone 0.5 MG/0.5 ML SYRINGE IVP PRN (06:43)
[2024-11-11 08:20] LABS: Basophils # (A) 0.01 X 10*3/uL (0.00-0.10); Basophils % (A) 0.1 %; Eosinophils # (A) 0.01 X 10*3/uL (0.04-0.35); Eosinophils % (A) 0.1 %; HCT 25.7 % (39.6-50.0); HGB 8.5 g/dL (13.0-17.0); Immature Grans, Automated 0.40 %; Lymphocytes # (A) 1.20 X 10*3/uL (0.90-5.00); Lymphocytes % (A) 13.2 %; MCH 30.6 pg (27.0-32.0); MCHC 33.1 g/dL (32.0-37.0); MCV 92.4 FL (80.0-97.0); Monocytes # (A) 0.86 X 10*3/uL (0.20-1.00); Monocytes % (A) 9.5 %; NRBC Per 100 WBC 0 X 10*3/uL (0.00-0.01); Neutrophils # (A) 6.96 X 10*3/uL (1.80-7.70); Neutrophils % (A) 76.7 %; Platelet Count 212 X 10*3/uL (140-440); RBC 2.78 X 10*6/uL (4.40-5.60); RDW 14.2 % (11.5-14.5); WBC 9.08 X 10*3/uL (4.50-10.00)
--- NOTE | 2024-11-11 08:35 | CT ---
EXAMINATION TYPE: CT lumbar spine wo con CT DLP: 1930 mGycm, Automated exposure control for dose reduction was used. DATE OF EXAM: 11/11/2024 8:16 AM COMPARISON: Fluoroscopic lumbar images 11/10/2024, CT abdomen and pelvis 11/03/2024, CT lumbar spine 07/15. CLINICAL INDICATION:Male, 54 years old with history of s/p lumbar fusion; PHH, s/p Lumbar fusion, lawanda n TECHNIQUE: Multiple axial images were obtained from the midportion of T11 through the sacroiliac leonie nts. Soft tissue and bone windows in coronal and sagittal planes were obtained and reviewed. Contrast used: none. Oral contrast used: none. FINDINGS: Postsurgical changes with interval laminectomy changes at L4-L5 with disc cages at L4-L5 and L5-S1. B ilateral pedicular screws now extend from L2 through S1 with bilateral SI joint screws. There is asso ciated soft tissue gas and edema at the surgical site. Posterior right approach surgical drain with d istal tip terminating in the posterior surgical site at the L3 level. Prior bilateral pedicular screw s and rods involving L3-L4 with disc cages at L2-L3 and L3-L4. Partial osseous fusion changes from L2 through L3. No gross evidence for significant spinal canal stenosis. Moderate bilateral neural hiren inal stenosis from L1 through L5. No evidence for acute fracture. Postsurgical changes with skin thickening and posterior midline back skin soren. There is some trac e gas along the incision tract. Right lower lobe peripheral 4 mm groundglass nodule (series 201, image 4). According to Flenigel ortega, in a low-risk patient no follow-up is recommended. In a high-risk patient consider optional C T chest in 12 months. Nonspecific thickening of both adrenal glands likely related to adrenal hyperpl matthew. IMPRESSION: Postsurgical changes without evidence of immediate post operative complication. [facility], , 11/11/2024 8:33 AM
[2024-11-11 09:03] LABS: Anion Gap 8.30 mmol/L (4.00-12.00); BUN/Creat Ratio 16.30 Ratio (12.00-20.00); Blood Urea Nitrogen 16.3 mg/dL (9.0-27.0); Calcium 8.1 mg/dL (8.7-10.3); Carbon Dioxide 23.7 mmol/L (21.6-31.8); Chloride 105 mmol/L (96-109); Glucose 201 mg/dL (70-110); Potassium 4.3 mmol/L (3.5-5.5); Sodium 137 mmol/L (135-145)
[2024-11-11] MEDS: SENNOSIDES-DOCUSATE SODIUM 1 EACH TAB PO SCH (09:44)
[2024-11-11] MEDS: LORATADINE 10 MG TAB PO SCH (09:46)
[2024-11-11 13:09] LABS: Glucose,Whole Blood 275 mg/dL (70-110)
--- NOTE | 2024-11-11 13:14 | P.PN ---
Subjective Progress Note Date: 11/11/24 Principal diagnosis: 1. L3-S1 Lumbar spondylsosis with radiculopathy 2. Neurogenic Claudication 3. Low back pain 4. Bilateral Lower Extremity Weakness Patient seen and examined this morning. Patient was sitting up in chair at bedside. Patient does report that his pain is managed on current regimen. Surgical incision to the lumbar spine, dressing is intact with mild shadowing noted. Optifoam dressing may be applied. Hemovac drain is present with 335 mL output overnight. Patient reports that he has been ambulatory throughout the room and tolerating activity well. Informed patient that physical therapy will begin to work with him later today. Patient states that his LSO brace will be delivered to his home possibly today. Continue to encourage patient to increase his activity as tolerated and use of incentive spirometer 10 times per hour while awake. No acute concerns. Objective - Vital Signs Vital signs: Vital Signs Temp 98.2 F 11/11/24 08:02 Pulse 90 11/11/24 08:02 Resp 16 11/11/24 08:02 BP 130/74 11/11/24 08:02 Pulse Ox 99 11/11/24 08:02 FiO2 Intake & Output 11/10/24 11/11/24 11/11/24 18:59 06:59 18:59 Intake Total 3252 Output Total 1575 350 125 Balance 1677 -350 -125 Weight 110.8 kg Intake: IV 3252 Output: Drainage 350 125 Lower Back 350 125 Urine 1075 Estimated Blood Loss 500 Other: Voiding Method Toilet # Voids 1 - Exam Physical Examination General: The patient is awake and alert, in no acute distress. Skin: Skin is warm and dry with no obvious rashes or lesions. Surgical incision to the lumbar spine, dressing is intact with mild shadowing noted. Hemovac is present with 335ml output overnight. Eye: Pupils are equal, round and reactive to light, extra-ocular movements are intact; there is normal conjunctiva bilaterally. Neck: The neck is supple, there is no tenderness and ROM intact. Respiratory: Respirations are non-labored. Gastrointestinal: Soft, non-distended, non-tender abdomen. Back: There is no tenderness to palpation in the midline, paralumbar, parathoracic or buttocks region. There is no obvious deformity. Musculoskeletal: ROM limited secondary to pain and stiffness from surgical procedure. Right: Shoulder abduction 5/5, elbow flexors 5/5, wrist dorsiflexors 5/5. finger abductor 5/5, lead assistant manager 5/5, hip flexor 4/5, knee flexor 4/5, ankle dorsiflexor 5/5, ankle plantarflexion 5/5 and extensor hallucis 5/5 Left: Shoulder abduction 5/5, elbow flexors 5/5, wrist dorsiflexors 5/5. finger abductor 5/5, lead assistant manager 5/5, hip flexor 4/5, knee flexor 4/5, ankle dorsiflexor 5/5, ankle plantarflexion 5/5 and extensor hallucis 5/5. Neurological: CN 2-12 intact. There are no obvious motor or sensory deficits. Movement and coordination equal and intact. Sensory exam to light touch intact C5-T1 and intact from L2-S1. Reflexes 2/4 in bilateral upper and lower extremities. Negative Hoffmans, babinski, and clonus signs. Psychiatric: Cooperative, appropriate mood & affect, normal judgment. - Labs CBC & Chem 7: 11/11/24 02:50 11/11/24 02:50 Labs: Abnormal Lab Results - Last 24 Hours (Table) 11/10/24 11/10/24 11/10/24 Range/Units 09:19 15:52 17:00 RBC (4.40-5.60) X 10*6/uL Hgb (13.0-17.0) g/dL Hct (39.6-50.0) % Eosinophils # (0.04-0.35) X 10*3/uL POC Glucose (mg/dL) 180 H 298 H 283 H (70-110) mg/dL 11/10/24 11/11/24 11/11/24 Range/Units 20:08 02:50 06:13 RBC 2.78 L (4.40-5.60) X 10*6/uL Hgb 8.5 L (13.0-17.0) g/dL Hct 25.7 L (39.6-50.0) % Eosinophils # 0.01 L (0.04-0.35) X 10*3/uL POC Glucose (mg/dL) 181 H 187 H (70-110) mg/dL Assessment and Plan Assessment: Postop day 1: Revision [id number] decompression and fusion Plan: -Appreciate compliance consultant and team management. -Activity: Ambulate QID, OOB all meals, up and about, limit lifting bending twi sting to less than 5 lbs. Use walker or cane if needed for stability. -Daily PT/OT, increase ambulation strength and balance. -Brace when up and about, not needed in bed or chair -LSO brace will be delivered to patient's home -Pain control: Adequate at this time -Meds: reviewed -GI ppx: senna, Miralax -DC hansen -DVT PPX: TEDS/SCDs -Hygiene: Maintain incision clean and dry. May change dressing as needed, please document in notes if performed. Meticulous cleaning after BMs away from the incision site -Drains: Maintain for now. Continue to monitor and record output q shift. -Encourage IS 10x/hr -Dispo: Anticipate discharge home with homecare within the next 48hrs. *I reviewed and discussed this case with my attending Dr. Roman, whom has reviewed this chart and films and is in agreement with assessment and plan of care as outlined above. I have personally seen and examined the patient, performed the documentation and the assessment and plan as written. Number of minutes spent on the visit: 20m.
--- NOTE | 2024-11-11 13:47 | P.CONS ---
History of Present Illness - Reason for Consult Consult date: 11/11/24 Medical management - History of Present Illness History of present illness; patient is a 54-year-old gentleman with past medical history significant for asthma, diabetes mellitus who presented to the hospital for elective L3-PELVIS Revision decompression and fusion. Patient following up outpatient with orthopedic spine for low back pain. Patient had tried all conservative measures but no avail, decision was made to proceed with surgery. Patient underwent surgery on 11/10. Postoperatively internal medicine team were consulted for medical management REVIEW OF SYSTEMS: CONSTITUTIONAL: No fever, no malaise, no fatigue. HEENT: No recent visual problems or hearing problems. Denied any sore throat. CARDIOVASCULAR: No chest pain, orthopnea, PND, no palpitations, no syncope. PULMONARY: No shortness of breath, no cough, no hemoptysis. GASTROINTESTINAL: No diarrhea, no nausea, no vomiting, no abdominal pain. NEUROLOGICAL: No headaches, no weakness, no numbness. HEMATOLOGICAL: Denies any bleeding or petechiae. GENITOURINARY: Denies any burning micturition, frequency, or urgency. MUSCULOSKELETAL/RHEUMATOLOGICAL: Still having back pain ENDOCRINE: Denies any polyuria or polydipsia. The rest of the 14-point review of systems is negative. PHYSICAL EXAMINATION: GENERAL: The patient is alert and oriented x3, not in any acute distress. Well developed, well nourished. HEENT: Pupils are round and equally reacting to light. EOMI. No scleral icterus. No conjunctival pallor. Normocephalic, atraumatic. No pharyngeal erythema. No thyromegaly. CARDIOVASCULAR: S1 and S2 present. No murmurs, rubs, or gallops. PULMONARY: Chest is clear to auscultation, no wheezing or crackles. ABDOMEN: Soft, nontender, nondistended, normoactive bowel sounds. No palpable organomegaly. MUSCULOSKELETAL: No joint swelling or deformity. EXTREMITIES: No cyanosis, clubbing, or pedal edema. NEUROLOGICAL: Gross neurological examination did not reveal any focal deficits. SKIN: lumbar area surgical incision seen Assessment and plan L3-S1 LUMBAR SPONDYLOSIS WITH STENOSIS AND RADICULOPATHY NEUROGENIC CLAUDICATION LOW BACK PAIN History of asthma history of hypertension Monitor vital signs Monitor CBC Status post L3-PELVIS Revision decompression and fusion Continue pain management per orthopedics Continue DVT prophylaxis per orthopedics Aggressive bowel regimen to prevent opioid-induced constipation Resume home meds PT and OT consulted Labs and medication were reviewed.. Continue same treatment. Continue with symptomatic treatment. Resume home medication. Monitor labs and vitals. DVT and GI prophylaxis. Further recommendations as per clinical course of the patient Dictation was produced using [employer] dictation software. please excuse any grammatical, word or spelling errors. Past Medical History Past Medical History: Asthma, Diabetes Mellitus, Eye Disorder, Hypertension, Osteoarthritis (OA) Additional Past Medical History / Comment(s): Hx low Hgb, hx infection in bone of 2nd toe on right foot(November 2019), chronic back pain, asthma only reactive with severe cold air, bilateral glaucoma. Patient states had nausea and abdominal pain for 3 days, came to [facility] ER 11/03/24, had work up and was told everything was ok, was prescribed Zofran and told to get Pepcid, states feeling better today. History of Any Multi-Drug Resistant Organisms: None Reported Past Surgical History: Back Surgery, Orthopedic Surgery Additional Past Surgical History / Comment(s): Right carpal tunnel, right elbow surgery, right shoulder surgery, back surgery X3, PAIN CLINIC PROCEDURES, COLONOSCOPY, RIGHT FOREFINGER AMPUTATION, BILATERAL CATARACTS REMOVED WITH LENS IMPLANTS. Past Anesthesia/Blood Transfusion Reactions: No Reported Reaction Additional Past Anesthesia/Blood Transfusion Reaction / Comm: No hx blood transfusion. Past Psychological History: No Psychological Hx Reported Smoking Status: Former smoker Past Alcohol Use History: Occasional Additional Past Alcohol Use History / Comment(s): Quit smoking November 10 2009. Past Drug Use History: Marijuana Additional Drug Use History / Comment(s): Marijuana use approximately 2 times per week - INSTRUCTED TO REFRAIN FROM USE FOR AT LEAST 24 HOURS PRIOR TO PROCEDURE. - Past Family History Mother Family Medical History: No Reported History Medications and Allergies Home Medications Medication Instructions Recorded Confirmed Type lisinopriL [Zestril] 2.5 mg PO DAILY 09/02/23 11/10/24 History Cetirizine HCl 10 mg PO DAILY 10/29/23 11/10/24 History HYDROcodone/APAP 10-325MG [Lima 1 tab PO QID PRN 10/29/23 11/10/24 History 10-325] Latanoprost [Latanoprost 0.005%] 1 drop BOTH EYES HS 10/29/23 11/10/24 History Tirzepatide [Mounjaro] 7.5 mg SQ MO 10/29/23 11/10/24 History Pregabalin [Lyrica] 150 mg PO TID 01/30/24 11/10/24 History Albuterol Inhaler [Ventolin Hfa 2 puff INHALATION Q4-6H PRN 02/04/24 11/10/24 History Inhaler] Naproxen [Naprosyn] 500 mg PO BID 90 Days #180 tab 04/16/24 11/10/24 Rx Ondansetron Odt [Zofran Odt] 4 mg PO Q8HR PRN #10 tab 11/03/24 11/10/24 Rx Cyclobenzaprine [Flexeril] 5 mg PO TID PRN 11/04/24 11/10/24 History Allergies Allergy/AdvReac Type Severity Reaction Status Date / Time erythromycin base Allergy Unknown Verified 11/10/24 08:57 Childhood Physical Exam Vitals: Vital Signs Temp Pulse Resp BP Pulse Ox 11/11/24 08:02 98.2 F 90 16 130/74 99 11/11/24 00:55 98.3 F 91 14 162/77 97 11/10/24 19:37 152/86 11/10/24 18:30 91 172/81 98 11/10/24 18:15 83 180/93 98 11/10/24 18:00 85 196/79 100 11/10/24 17:45 83 177/93 100 11/10/24 17:30 83 152/84 100 11/10/24 17:15 77 146/79 100 11/10/24 17:00 85 165/82 96 11/10/24 16:45 98.3 F 85 18 189/79 98 11/10/24 16:30 75 16 158/79 97 11/10/24 16:15 73 16 168/93 100 11/10/24 16:00 73 16 170/89 100 11/10/24 15:45 73 16 167/88 100 11/10/24 15:37 97.9 F 68 16 159/80 100 Intake and Output 11/10/24 11/11/24 11/11/24 22:59 06:59 14:59 Intake Total 200 Output Total 1775 150 185 Balance -1575 -150 -185 Intake: IV 200 Output: Drainage 200 150 185 Lower Back 200 150 185 Urine 1075 Estimated Blood Loss 500 Other: Voiding Method Toilet # Voids 1 Weight 110.8 kg Results CBC & Chem 7: 11/11/24 02:50 11/11/24 02:50 Labs: Abnormal Lab Results - Last 24 Hours (Table) 11/10/24 11/10/24 11/10/24 Range/Units 15:52 17:00 20:08 RBC (4.40-5.60) X 10*6/uL Hgb (13.0-17.0) g/dL Hct (39.6-50.0) % Eosinophils # (0.04-0.35) X 10*3/uL Glucose (70-110) mg/dL POC Glucose (mg/dL) 298 H 283 H 181 H (70-110) mg/dL Calcium (8.7-10.3) mg/dL 11/11/24 11/11/24 11/11/24 Range/Units 02:50 02:50 06:13 RBC 2.78 L (4.40-5.60) X 10*6/uL Hgb 8.5 L (13.0-17.0) g/dL Hct 25.7 L (39.6-50.0) % Eosinophils # 0.01 L (0.04-0.35) X 10*3/uL Glucose 201 H (70-110) mg/dL POC Glucose (mg/dL) 187 H (70-110) mg/dL Calcium 8.1 L (8.7-10.3) mg/dL 11/11/24 Range/Units 13:07 RBC (4.40-5.60) X 10*6/uL Hgb (13.0-17.0) g/dL Hct (39.6-50.0) % Eosinophils # (0.04-0.35) X 10*3/uL Glucose (70-110) mg/dL POC Glucose (mg/dL) 275 H (70-110) mg/dL Calcium (8.7-10.3) mg/dL
[2024-11-11 16:48] LABS: Glucose,Whole Blood 169 mg/dL (70-110)
[2024-11-11 20:43] LABS: Glucose,Whole Blood 206 mg/dL (70-110)
[2024-11-12 06:21] LABS: Glucose,Whole Blood 289 mg/dL (70-110)
[2024-11-12 09:01] LABS: HCT 23.3 % (39.6-50.0); MCH 31.5 pg (27.0-32.0); MCHC 33.9 g/dL (32.0-37.0); MCV 92.8 fL (80.0-97.0); Platelet Count 176 10*3/uL (140-440); RBC 2.51 10*6/uL (4.40-5.60); RDW 13.8 % (11.5-14.5); WBC 8.33 10*3/uL (4.50-10.00)
[2024-11-12 09:05] LABS: HGB 7.9 g/dL (13.0-17.0)
[2024-11-12 09:14] LABS: African American GFR (CKD) >90 (>60 ml/min/1.73 sqM); Anion Gap 4 mmol/L; Blood Urea Nitrogen 12 mg/dL (9-20); Calcium 8.4 mg/dL (8.4-10.2); Carbon Dioxide 29 mmol/L (22-30); Chloride 104 mmol/L (98-107); Glucose 183 mg/dL (74-99); Non-African American GFR(CKD) >90 (>60 ml/min/1.73 sqM); Potassium 4.0 mmol/L (3.5-5.1); Sodium 137 mmol/L (137-145)
--- NOTE | 2024-11-12 10:38 | P.PN ---
Subjective Progress Note Date: 11/12/24 Principal diagnosis: 1. L3-S1 Lumbar spondylsosis with radiculopathy 2. Neurogenic Claudication 3. Low back pain 4. Bilateral Lower Extremity Weakness Patient seen and examined this morning. Patient is resting comfortably in bed. He does report that his pain did intensify last night, although is managed at this time. Patient states that he has continued to increase his activity as tolerated and has been ambulatory within the room. He states he is tolerating activity well. Nursing did notify that patient accidentally pulled out his Hemovac drain yesterday evening. Orders were given to monitor dressing and change as needed to keep incision clean and dry. Surgical incision to the lumbar spine, dressing is currently clean dry and intact. Patient does state that he has improvement of the bilateral lower extremity radiculopathy since the procedure. No acute concerns. Objective - Vital Signs Vital signs: Vital Signs Temp 99.1 F 11/12/24 06:46 Pulse 92 11/12/24 06:46 Resp 18 11/12/24 06:46 BP 133/76 11/12/24 06:46 Pulse Ox 98 11/12/24 06:46 FiO2 Intake & Output 11/11/24 11/12/24 11/12/24 18:59 06:59 18:59 Output Total 185 Balance -185 Output: Drainage 185 Lower Back 185 Other: # Voids 2 - Exam Physical Examination General: The patient is awake and alert, in no acute distress. Skin: Skin is warm and dry with no obvious rashes or lesions. Surgical incision to the lumbar spine, dressing is intact. Eye: Pupils are equal, round and reactive to light, extra-ocular movements are intact; there is normal conjunctiva bilaterally. Neck: The neck is supple, there is no tenderness and ROM intact. Respiratory: Respirations are non-labored. Gastrointestinal: Soft, non-distended, non-tender abdomen. Back: There is no tenderness to palpation in the midline, paralumbar, parathoracic or buttocks region. There is no obvious deformity. Musculoskeletal: ROM limited secondary to pain and stiffness from surgical procedure. Right: Shoulder abduction 5/5, elbow flexors 5/5, wrist dorsiflexors 5/5. finger abductor 5/5, steward/stewardess club car 5/5, hip flexor 4/5, knee flexor 4/5, ankle dorsiflexor 5/5, ankle plantarflexion 5/5 and extensor hallucis 5/5 Left: Shoulder abduction 5/5, elbow flexors 5/5, wrist dorsiflexors 5/5. finger abductor 5/5, steward/stewardess club car 5/5, hip flexor 4/5, knee flexor 4/5, ankle dorsiflexor 5/5, ankle plantarflexion 5/5 and extensor hallucis 5/5. Neurological: CN 2-12 intact. There are no obvious motor or sensory deficits. Movement and coordination equal and intact. Sensory exam to light touch intact C5-T1 and intact from L2-S1. Reflexes 2/4 in bilateral upper and lower extremities. Negative Hoffmans, babinski, and clonus signs. Psychiatric: Cooperative, appropriate mood & affect, normal judgment. - Labs CBC & Chem 7: 11/12/24 08:39 11/12/24 08:39 Labs: Abnormal Lab Results - Last 24 Hours (Table) 11/11/24 11/11/24 11/11/24 Range/Units 02:50 02:50 13:07 RBC 2.78 L (4.40-5.60) X 10*6/uL Hgb 8.5 L (13.0-17.0) g/dL Hct 25.7 L (39.6-50.0) % Eosinophils # 0.01 L (0.04-0.35) X 10*3/uL Glucose 201 H (70-110) mg/dL POC Glucose (mg/dL) 275 H (70-110) mg/dL Calcium 8.1 L (8.7-10.3) mg/dL 11/11/24 11/11/24 11/12/24 Range/Units 16:47 20:41 06:17 RBC (4.40-5.60) X 10*6/uL Hgb (13.0-17.0) g/dL Hct (39.6-50.0) % Eosinophils # (0.04-0.35) X 10*3/uL Glucose (70-110) mg/dL POC Glucose (mg/dL) 169 H 206 H 289 H (70-110) mg/dL Calcium (8.7-10.3) mg/dL Assessment and Plan Assessment: Postop day 2: Revision [id number] decompression and fusion Plan: -Appreciate tax credit leasing consultant and team management. -Activity: Ambulate QID, OOB all meals, up and about, limit lifting bending twisting to less than 5 lbs. Use walker or cane if needed for stability. -Daily PT/OT, increase ambulation strength and balance. -Brace when up and about, not needed in bed or chair -LSO brace will be delivered to patient's home -Pain control: Adequate at this time -Meds: reviewed -GI ppx: senna, Miralax -DVT PPX: TEDS/SCDs -Hygiene: Maintain incision clean and dry. May change dressing as needed, please document in notes if performed. Meticulous cleaning after BMs away from the incision site -Encourage IS 10x/hr -Dispo: Anticipate discharge home with homecare tomorrow, 11/13/24 *I reviewed and discussed this case with my attending Dr. Roman, whom has reviewed this chart and films and is in agreement with assessment and plan of care as outlined above. I have personally seen and examined the patient, performed the documentation and the assessment and plan as written. Number of minutes spent on the visit: 20m.
[2024-11-12 10:50] LABS: Glucose,Whole Blood 243 mg/dL (70-110)
--- NOTE | 2024-11-12 13:43 | P.PN ---
Subjective Progress Note Date: 11/12/24 patient is a 54-year-old gentleman with past medical history significant for asthma, diabetes mellitus who presented to the hospital for elective L3-PELVIS Revision decompression and fusion. Patient following up outpatient with orthopedic spine for low back pain. Patient had tried all conservative measures but no avail, decision was made to proceed with surgery. Patient underwent surgery on 11/10. Postoperatively internal medicine team were consulted for medical management 11/12. Patient seen and examined. Tolerating diet. Stated pain is under control, only complaint of pain at the surgical site. No acute issues overnight REVIEW OF SYSTEMS: CONSTITUTIONAL: No fever, no malaise,. CARDIOVASCULAR: No chest pain, no palpitations, no syncope. PULMONARY: No shortness of breath, no cough, GASTROINTESTINAL: No diarrhea, no nausea, no vomiting, no abdominal pain. NEUROLOGICAL: No headaches, no weakness, PHYSICAL EXAMINATION: GENERAL: The patient is alert and oriented x3, not in any acute distress. Well developed, well nourished. HEENT: Pupils are round and equally reacting to light. EOMI. No scleral icterus. No conjunctival pallor. Normocephalic, atraumatic. No pharyngeal erythema. No thyromegaly. CARDIOVASCULAR: S1 and S2 present. No murmurs, rubs, or gallops. PULMONARY: Chest is clear to auscultation, no wheezing or crackles. ABDOMEN: Soft, nontender, nondistended, normoactive bowel sounds. No palpable organomegaly. MUSCULOSKELETAL: No joint swelling or deformity. EXTREMITIES: No cyanosis, clubbing, or pedal edema. NEUROLOGICAL: Gross neurological examination did not reveal any focal deficits. SKIN: lumbar area surgical incision seen Assessment and plan L3-S1 LUMBAR SPONDYLOSIS WITH STENOSIS AND RADICULOPATHY NEUROGENIC CLAUDICATION LOW BACK PAIN History of asthma history of hypertension Monitor vital signs Monitor CBC Status post L3-PELVIS Revision decompression and fusion Continue pain management per orthopedics Continue DVT prophylaxis per orthopedics Aggressive bowel regimen to prevent opioid-induced constipation PT OT following Labs and medication were reviewed.. Continue same treatment. Continue with symptomatic treatment. Resume home medication. Monitor labs and vitals. DVT and GI prophylaxis. Further recommendations as per clinical course of the patient Dictation was produced using [employer] dictation software. please excuse any grammatical, word or spelling errors. Objective - Vital Signs Vital signs: Vital Signs Temp 99.1 F 07/03/25 06:46 Pulse 92 11/12/24 06:46 Resp 18 11/12/24 06:46 BP 133/76 11/12/24 06:46 Pulse Ox 98 11/12/24 06:46 FiO2 Intake & Output 11/11/24 11/12/24 11/12/24 18:59 06:59 18:59 Output Total 185 Balance -185 Output: Drainage 185 Lower Back 185 Other: # Voids 2 - Labs CBC & Chem 7: 11/12/24 08:39 11/12/24 08:39 Labs: Abnormal Lab Results - Last 24 Hours (Table) 11/11/24 11/11/24 11/11/24 Range/Units 13:07 16:47 20:41 RBC (4.40-5.60) 10*6/uL Hgb (13.0-17.0) g/dL Hct (39.6-50.0) % Glucose (74-99) mg/dL POC Glucose (mg/dL) 275 H 169 H 206 H (70-110) mg/dL 11/12/24 11/12/24 11/12/24 Range/Units 06:17 08:39 08:39 RBC 2.51 L (4.40-5.60) 10*6/uL Hgb 7.9 L D (13.0-17.0) g/dL Hct 23.3 L (39.6-50.0) % Glucose 183 H (74-99) mg/dL POC Glucose (mg/dL) 289 H (70-110) mg/dL
[2024-11-12 16:34] LABS: Glucose,Whole Blood 279 mg/dL (70-110)
[2024-11-12 21:13] LABS: Glucose,Whole Blood 106 mg/dL (70-110)
[2024-11-13 06:00] LABS: Glucose,Whole Blood 230 mg/dL (70-110)
[2024-11-13 07:32] VITALS: BP 122/62; PULSE 76; RESP 16; TEMP 98.9
--- NOTE | 2024-11-13 08:26 | P.PN ---
Subjective Progress Note Date: 11/13/24 Principal diagnosis: 1. L3-S1 Lumbar spondylsosis with radiculopathy 2. Neurogenic Claudication 3. Low back pain 4. Bilateral Lower Extremity Weakness Patient seen and examined this morning. Patient is resting comfortably in bed. He does report that he feels his pain is better managed today. Surgical incision to the lumbar spine, dressings have been continue to be changed due to mild to moderate sanguinous drainage. This is to be expected due to Hemovac drain being pulled. Informed patient that he will need to continue to change dressings daily or as needed to keep the incision clean and dry. Discharge instructions have been discussed. Patient feels comfortable going home. No acute concerns. Objective - Vital Signs Vital signs: Vital Signs Temp 98.9 F 11/13/24 06:39 Pulse 76 11/13/24 06:39 Resp 16 11/13/24 06:39 BP 122/62 11/13/24 06:39 Pulse Ox 100 11/13/24 06:39 FiO2 Intake & Output 11/12/24 11/13/24 11/13/24 18:59 06:59 18:59 Other: # Voids 2 # Bowel Movements 1 - Exam Physical Examination General: The patient is awake and alert, in no acute distress. Skin: Skin is warm and dry with no obvious rashes or lesions. Surgical incision to the lumbar spine, dressing is intact. Eye: Pupils are equal, round and reactive to light, extra-ocular movements are intact; there is normal conjunctiva bilaterally. Neck: The neck is supple, there is no tenderness and ROM intact. Respiratory: Respirations are non-labored. Gastrointestinal: Soft, non-distended, non-tender abdomen. Back: There is no tenderness to palpation in the midline, paralumbar, parathoracic or buttocks region. There is no obvious deformity. Musculoskeletal: ROM limited secondary to pain and stiffness from surgical procedure. Right: Shoulder abduction 5/5, elbow flexors 5/5, wrist dorsiflexors 5/5. finger abductor 5/5, medical affairs specialist 5/5, hip flexor 4/5, knee flexor 4/5, ankle dorsiflexor 5/5, ankle plantarflexion 5/5 and extensor hallucis 5/5 Left: Shoulder abduction 5/5, elbow flexors 5/5, wrist dorsiflexors 5/5. finger abductor 5/5, medical affairs specialist 5/5, hip flexor 4/5, knee flexor 4/5, ankle dorsiflexor 5/5, ankle plantarflexion 5/5 and extensor hallucis 5/5. Neurological: CN 2-12 intact. There are no obvious motor or sensory deficits. Movement and coordination equal and intact. Sensory exam to light touch intact C5-T1 and intact from L2-S1. Reflexes 2/4 in bilateral upper and lower extremities. Negative Hoffmans, babinski, and clonus signs. Psychiatric: Cooperative, appropriate mood & affect, normal judgment. - Labs CBC & Chem 7: 11/12/24 08:39 11/12/24 08:39 Labs: Abnormal Lab Results - Last 24 Hours (Table) 11/12/24 11/12/24 11/12/24 Range/Units 08:39 08:39 10:48 RBC 2.51 L (4.40-5.60) 10*6/uL Hgb 7.9 L D (13.0-17.0) g/dL Hct 23.3 L (39.6-50.0) % Glucose 183 H (74-99) mg/dL POC Glucose (mg/dL) 243 H (70-110) mg/dL 11/12/24 11/13/24 Range/Units 16:31 05:57 RBC (4.40-5.60) 10*6/uL Hgb (13.0-17.0) g/dL Hct (39.6-50.0) % Glucose (74-99) mg/dL POC Glucose (mg/dL) 279 H 230 H (70-110) mg/dL Assessment and Plan Assessment: Postop day 3: Revision [id number] decompression and fusion Plan: -Appreciate software consultant and team management. -Activity: Ambulate QID, OOB all meals, up and about, limit lifting bending twisting to less than 5 lbs. Use walker or cane if needed for stability. -Daily PT/OT, increase ambulation strength and balance. -Brace when up and about, not needed in bed or chair -LSO brace will be delivered to patient's home -Pain control: Adequate at this time -Meds: reviewed -GI ppx: senna, Miralax -DVT PPX: TEDS/SCDs -Hygiene: Maintain incision clean and dry. May change dressing as needed, please document in notes if performed. Meticulous cleaning after BMs away from the incision site -Encourage IS 10x/hr -Dispo: Discharge home later today with home care *I reviewed and discussed this case with my attending Dr. Roman, whom has reviewed this chart and films and is in agreement with assessment and plan of care as outlined above. I have personally seen and examined the patient, performed the documentation and the assessment and plan as written. Number of minutes spent on the visit: 20m.
--- NOTE | 2024-11-13 08:27 | P.DS ---
Providers Date of admission: 11/10/24 08:30 Expected date of discharge: 11/13/24 Attending physician: Mo Roman DO Consults: 11/10/24 16:21 Consult Physician Routine Consulting Provider: Raz Garcia Reason/Comments: medical management Do you want consulting provider notified?: Yes Primary care physician: [facility] Course: Hospital Course: The patient was evaluated preoperatively and found to have the diagnosis of lumbar spondylosis with stenosis. They underwent appropriate preoperative care and were willing to undergo the intended procedure. They underwent a successful revision [id number] decompression and fusion, were recovered appropriately and sent to the floor. While on the floor they worked with physical therapy, occupational therapy and nursing to enhance their recovery experience. Their pain was well controlled through their stay and they were started on appropriate medications, DVT ppx modalities, activity and dietary needs. Daily labs were monitored closely, and transfusions were only used when necessary. Medicine as well as other consulting services have made their input and have helped with our team approach and multidisciplinary care. PT milestones have been met and passed and they have made the recommendation of home for this patient and treating providers agree with this care path. The patient will be discharged home with appropriate medications, instructions and follow-up information and in stable condition. Patient Condition at Discharge: Good Plan - Discharge Summary Discharge Rx Participant: No New Discharge Prescriptions: New cefaDROXiL [Duricef] 500 mg PO Q12HR #10 cap oxyCODONE-APAP 5-325MG [Percocet 5-325 mg] 1 tab PO Q4HR PRN #42 tab PRN Reason: Pain Sennosides/Docusate Sodium [Senna Plus 8.6-50 mg Tablet] 2 each PO DAILY PRN #20 tab PRN Reason: Constipation diazePAM [Valium] 5 mg PO TID PRN #30 tab PRN Reason: Muscle Spasm Pregabalin [Lyrica] 150 mg PO BID #60 cap No Action lisinopriL [Zestril] 2.5 mg PO DAILY HYDROcodone/APAP 10-325MG [Alden 10-325] 1 tab PO QID PRN PRN Reason: Pain Latanoprost [Latanoprost 0.005%] 1 drop BOTH EYES HS Albuterol Inhaler [Ventolin Hfa Inhaler] 2 puff INHALATION Q4-6H PRN PRN Reason: Shortness Of Breath Ondansetron Odt [Zofran Odt] 4 mg PO Q8HR PRN #10 tab PRN Reason: Nausea Cyclobenzaprine [Flexeril] 5 mg PO TID PRN PRN Reason: Muscle Spasm Tirzepatide [Mounjaro] 7.5 mg SQ MO Cetirizine HCl 10 mg PO DAILY Pregabalin [Lyrica] 150 mg PO TID Naproxen [Naprosyn] 500 mg PO BID 90 Days #180 tab Discharge Medication List lisinopriL [Zestril] 2.5 mg PO DAILY 09/02/23 [History] Cetirizine HCl 10 mg PO DAILY 10/29/23 [History] HYDROcodone/APAP 10-325MG [Alden 10-325] 1 tab PO QID PRN 10/29/23 [History] Latanoprost [Latanoprost 0.005%] 1 drop BOTH EYES HS 10/29/23 [History] Tirzepatide [Mounjaro] 7.5 mg SQ MO 10/29/23 [History] Pregabalin [Lyrica] 150 mg PO TID 01/30/24 [History] Albuterol Inhaler [Ventolin Hfa Inhaler] 2 puff INHALATION Q4-6H PRN 02/04/24 [History] Naproxen [Naprosyn] 500 mg PO BID 90 Days #180 tab 04/16/24 [Rx] Ondansetron Odt [Zofran Odt] 4 mg PO Q8HR PRN #10 tab 11/03/24 [Rx] Cyclobenzaprine [Flexeril] 5 mg PO TID PRN 11/04/24 [History] Pregabalin [Lyrica] 150 mg PO BID #60 cap 11/12/24 [Rx] Sennosides/Docusate Sodium [Senna Plus 8.6-50 mg Tablet] 2 each PO DAILY PRN #20 tab 11/12/24 [Rx] cefaDROXiL [Duricef] 500 mg PO Q12HR #10 cap 11/12/24 [Rx] diazePAM [Valium] 5 mg PO TID PRN #30 tab 11/12/24 [Rx] oxyCODONE-APAP 5-325MG [Percocet 5-325 mg] 1 tab PO Q4HR PRN #42 tab 11/12/24 [Rx] Follow up Appointment(s)/Referral(s): [facility] [NON-STAFF] - As Needed (walker) Mo Roman DO [Doctor of Osteopathic Medicine] - 11/25/24 10:00 am Activity/Diet/Wound Care/Special Instructions: Spine Discharge and Recovery Instructions Date of Surgery: 11/10/2024 Diagnosis: Lumbar spondylosis with stenosis Procedure: Revision [id number] decompression and fusion Medications: See medication list All medication refills should be obtained through your primary care doctor or your clinic spine surgeon. Please discuss prescription refills at your follow up appointment. Do not call the hospital for medication refills. Activity: Encourage ambulation with assist of walker, Up and about 6-8x daily PT/OT daily work on balance, strength and mobility Up in chair with all meals Shower daily Brace: Use brace when up and about, do not wear in bed or shower Dressing: Leave your dressing in place for a total of 3 days post operatively. Then you may remove your dressing and leave open to air. Keep the area clean and if not able to keep area clean, then cover with sterile gauze and tape. Showering: You may shower 3 days after your procedure allowing soap and water to run over incision. Do not scrub. Do not soak. Blot dry. Follow up: Please confirm a follow up appointment with your surgeon 2 weeks post operative ly. Please make an appointment to follow up with your PCP in 1-2 weeks after surgery for evaluation '3 phase, 3-week plan' POST OP WEEKS 1-3 1. Lifting/carrying/pushing/pulling limited to less than 5 pounds. 2. Do not sit for longer than 15 minutes at one time. Get up and walk around. Prolonged sitting is NOT advised. If you lay down, see if you can tolerate laying down on you front (belly side) 3. Walk for periods of 15 minutes = 1 mile but no longer; do it multiple times times each day. 4. Ice your low back after activity. POST OP WEEKS 3-6 1. Lifting limited to less than 20 pounds. 2. Do not sit for longer than 30 minutes at a time. Frequently change positions. Use a sit-to stand workstation or take frequent breaks from sitting if you have returned to work. 3. Walk for 30 minutes each day. If possible, do these three or more times a day POST OP WEEKS 6+ At your 6-week appointment we will give you a physical therapy referral to focus on a core stabilization and strengthening program. You should also work on leg & buttock strengthening, hamstring & quadriceps stretching, and continue a low impact aerobic activity program such as swimming, walking, or riding a stationary bicycle. During the initial 6 weeks after your surgery, you are at the highest risk of re-injuring your spine. You should generally avoid BLT's (bending, lifting and twisting combination motions) and follow the above guidelines to reduce the chance of reinjury. You can anticipate post op appointments in our office at approximately 3 weeks and 6 weeks after your surgery. INCISION CARE: If your incision is not draining you do NOT need to cover it with a dressing. Keep your incision clean, dry and intact. In most cases, we apply skin glue, soren or sutures to the incision at the time of surgery. This will be like a crust or have the appearance of a scab and will fall off in time on its own. The stitches or soren need to be removed at 3 weeks post op appointment. You may begin to shower 3 days after surgery (this allows the glue to estrada well). However, please avoid scrubbing the incision site or peeling off any of the skin glue. This will ensure optimal healing of your incision. Also, during this time avoid soaking the incision area in water - this includes swimming pools, hot tubs or baths. No ointments, lotions or oils on the incision until your surgeon allows. Leave soren, sutures or glue in place. Neurological dysfunction that comes on suddenly can also be a sign of a stroke. Below some common symptoms of a stroke are listed: B - balance difficulty such as sudden onset walking or leaning to one side - NEW E - eye problem such as sudden double vision or trouble seeing on one side - NEW F - Facial weakness or numbness on one side - NEW A - Arm or leg weakness or numbness on one side - NEW S - Slurred speech or difficulty with word finding - NEW T - Time is BRAIN! Call 911 as soon as you recognize these symptoms Diet: Consume a regular diet rich in vegetables and lean protein such as chicken or fish. You should consume in a ratio of approximately 20% fats|40% carbohydrates|40%protein. Vegetables, sweet potatoes, brown rice or quinoa are examples of good carbohydrates. Chips, white bread, cookies and sweets/sugar are examples of bad carbohydrates. Limit your bad carbs, go wild with good carbs. "Life's Simple 7" Guidelines as per [place] [employer] These will help you reclaim your life after surgery and wet end helper in your recovery, keeping in mind your restrictions. (1) Get Active. Physical activity can help people lose weight, control high blood pressure and cholesterol, feel emotionally better, and sleep better. (2) Control Cholesterol. Avoid a diet high in saturated fat, trans fat, & cholesterol. Limit whole milk & cream, ice cream, butter, egg yolks, processed meats (like sausage and hot dogs), and fatty meats. Choose healthy foods that are low in saturated fat, trans fat and cholesterol which include: Fruits and vegetables, fiber rich grain products (like whole grain pasta and brown rice), lean meat such as chicken, fish, nuts, seeds, and legumes. (3) Eat Better. Eat small portions. Shop at the grocery with a list and do not stray from it. Tips for a healthy diet include: Limit sodium intake to less than 1500mg daily, avoid prepackaged, processed, and fast foods, choose a diet rich in fruits, vegetables, and whole grain, high fiber foods, and limit saturated & cholesterol in your diet. (4) Manage Blood Pressure. If you have high blood pressure, you should have a cuff at home so that you can check your blood pressure regularly. Be sure you have a good cuff. An arm one is generally better than a wrist one. Bring the cuff to a doctor's appointment to validate that the measurements that your cuff are taking are accurate. Take your blood pressure twice daily when you are sitting down and relaxing. Record the numbers in a log and bring this log with you to your doctors' appointments. (5) Lose Weight if your BMI is above 25. A healthy BMI is between 19-25. To calculate Your BMI, you may use a Standard BMI Calculator on the NIH BMI website: <www.nhlbi.nih.gov/guidelines/obesity/BMI/bmicalc.htm>. Weigh oneself daily. If you are overweight, set a goal to lose weight. A pound a week loss if needed is a good target. (6) Reduce Blood Sugar. Limit foods and liquids with "added sugars." (Added sugars include sucrose, fructose, glucose, maltose, dextrose, high fructose corn syrup, corn syrup, concentrated fruit juice and honey). (7) Stop Smoking. If you smoke, quitting smoking is one of the best things that you can do for your health. Smoking increases your risk of heart attack, stroke, and peripheral vascular disease, which is a build-up of plaque in your arteries. Please discard all the cigarettes and lighters in your house. Have a plan for what you will do when you have the urge to smoke. Direct and second- hand smoke shortens your life as well as the lives of your family, friends and others around you. For your health and the health of those around you, please consider quitting! Proper Bending Body Mechanics: Maintain a wide stance with one foot slightly in front of the other. Keep your back straight. Bend utilizing the strength in your hips and knees. Do not bend at the waist. Maintain the lifted object at your waist-level close to your body. Avoid lifting weight that causes immediately pain or pain anywhere in the body afterwards. Smoking/Nicotine If there was ever one thing that you could do to increase your overall health, decrease your risk of cardiovascular problems by about 39% the second you make the choice, it is to STOP SMOKING. Your body's most instant gratification is the second you stop smoking. We have all heard the studies, read the articles but it is true, smoking is extremely bad for your overall health, and moreover it is detrimental to your bone health. Nicotine, IN ANY FORM, kills bone cells, prevents your body from healing fractures, and significantly prolongs healing after surgery. In spine surgery specifically, it increases your risk of not healing your bones to create a fusion and increases your risk of having a revision surgery due to this up to 60%. I know it is hard. I know it feels impossible. But there are ways. Take control of your life. We are here to help you through it. And when you are ready, ask us and we can direct you to help if you desire. Use the START Plan to Quit Smoking (please visit the [employer]org website listed below for more information): S = Set a quit date. Choose a date within the next 2 weeks, so you have enough time to prepare without losing your motivation to quit. If you mainly smoke at work, quit on the weekend, so you have a few days to adjust to the change. T = Tell family, friends, and co-workers that you plan to quit. Let your friends and family in on your plan to quit smoking and tell them you need their support and encouragement to stop. Look for a quit lavinia who wants to stop smoking as well. You can help each other get through the rough times. A = Anticipate and plan for the challenges you'll face while quitting. Most people who begin smoking again do so within the first 3 months. You can help yourself make it through by preparing ahead for common challenges, such as nicotine withdrawal and cigarette cravings. R = Remove cigarettes and other tobacco products from your home, car, and work. Throw away all your cigarettes (no emergency pack!), lighters, ashtrays, and matches. Wash your clothes and freshen up anything that smells like smoke. Shampoo your car, clean your drapes and carpet, and steam your furniture. T = Talk to your doctor about getting help to quit. Your doctor can prescribe medication to help with withdrawal and suggest other alternatives. If you can't see a doctor, you can get many products over the counter at your local pharmacy or grocery store, including the nicotine patch, nicotine lozenges, and nicotine gum. Resources for Quitting Smoking: <https://www.[place].gov/documents/[facility] /Quit_Tobacco_Resources_for_patients_313480_7.pdf> Supplementation: Take recommended dosages of Vitamin D and Calcium to help fortify your bones and help them to heal. See your health maintenance packet for dosages and recommended levels. DVT/VTE prophylaxis: You will be given compression stockings from the hospital. Wear these daily for the first two weeks after surgery. You may take them off at night. You may be prescribed a medication to help thin your blood. Take this as directed. If you are not prescribed this medication, early and frequent ambulation has been shown to be the best prophylaxis to deep vein thrombosis and sequelae related to this event. Discharge Disposition: HOME WITH HOME HEALTH SERVICES
[2024-11-13 11:02] LABS: Glucose,Whole Blood 201 mg/dL (70-110)
--- NOTE | 2024-11-13 13:04 | P.PN ---
Subjective Progress Note Date: 11/13/24 patient is a 54-year-old gentleman with past medical history significant for asthma, diabetes mellitus who presented to the hospital for elective L3-PELVIS Revision decompression and fusion. Patient following up outpatient with orthopedic spine for low back pain. Patient had tried all conservative measures but no avail, decision was made to proceed with surgery. Patient underwent surgery on 11/10. Postoperatively internal medicine team were consulted for medical management 11/12. Patient seen and examined. Tolerating diet. Stated pain is under control, only complaint of pain at the surgical site. No acute issues overnight /4. Patient examined. Patient doing well, being discharged home today REVIEW OF SYSTEMS: CONSTITUTIONAL: No fever, no malaise,. CARDIOVASCULAR: No chest pain, no palpitations, no syncope. PULMONARY: No shortness of breath, no cough, GASTROINTESTINAL: No diarrhea, no nausea, no vomiting, no abdominal pain. NEUROLOGICAL: No headaches, no weakness, PHYSICAL EXAMINATION: GENERAL: The patient is alert and oriented x3, not in any acute distress. Well developed, well nourished. HEENT: Pupils are round and equally reacting to light. EOMI. No scleral icterus. No conjunctival pallor. Normocephalic, atraumatic. No pharyngeal erythema. No thyromegaly. CARDIOVASCULAR: S1 and S2 present. No murmurs, rubs, or gallops. PULMONARY: Chest is clear to auscultation, no wheezing or crackles. ABDOMEN: Soft, nontender, nondistended, normoactive bowel sounds. No palpable organomegaly. MUSCULOSKELETAL: No joint swelling or deformity. EXTREMITIES: No cyanosis, clubbing, or pedal edema. NEUROLOGICAL: Gross neurological examination did not reveal any focal deficits. SKIN: lumbar area surgical incision seen Assessment and plan L3-S1 LUMBAR SPONDYLOSIS WITH STENOSIS AND RADICULOPATHY NEUROGENIC CLAUDICATION LOW BACK PAIN History of asthma history of hypertension Monitor vital signs Monitor CBC Status post L3-PELVIS Revision decompression and fusion Continue pain management per orthopedics Continue DVT prophylaxis per orthopedics Aggressive bowel regimen to prevent opioid-induced constipation PT OT following Labs and medication were reviewed.. Continue same treatment. Continue with symptomatic treatment. Resume home medication. Monitor labs and vitals. DVT and GI prophylaxis. Further recommendations as per clinical course of the patient Dictation was produced using [employer] dictation software. please excuse any grammatical, word or spelling errors. Objective - Vital Signs Vital signs: Vital Signs Temp 98.9 F 11/13/24 06:39 Pulse 76 11/13/24 06:39 Resp 16 11/13/24 06:39 BP 122/62 11/13/24 06:39 Pulse Ox 100 11/13/24 06:39 FiO2 Intake & Output 11/12/24 11/13/24 11/13/24 18:59 06:59 18:59 Other: Voiding Method Toilet # Voids 2 # Bowel Movements 1 - Labs CBC & Chem 7: 11/12/24 08:39 11/12/24 08:39 Labs: Abnormal Lab Results - Last 24 Hours (Table) 11/12/24 11/13/24 11/13/24 Range/Units 16:31 05:57 11:00 POC Glucose (mg/dL) 279 H 230 H 201 H (70-110) mg/dL
== END 2024-11-13 13:28 | disposition home health service (06) | DRG 300 ==
LOC: 2ORMAIN 08:30 → 4SSUR 16:13
PROVIDERS: ADMIT Orthopaedic Surgery; ATTEND Orthopaedic Surgery
PROC: 0SG0071 Fusion of Lumbar Vertebral Joint with Autologous Tissue Substitute, Posterior Approach, Posterior Column, Open Approach (ICD-10-PCS; 2024-11-10)
PROC: 0SG30AJ Fusion of Lumbosacral Joint with Interbody Fusion Device, Posterior Approach, Anterior Column, Open Approach (ICD-10-PCS; 2024-11-10)
PROC: 0SG3071 Fusion of Lumbosacral Joint with Autologous Tissue Substitute, Posterior Approach, Posterior Column, Open Approach (ICD-10-PCS; 2024-11-10)
PROC: 01NB0ZZ Release Lumbar Nerve, Open Approach (ICD-10-PCS; 2024-11-10)
PROC: 01NR0ZZ Release Sacral Nerve, Open Approach (ICD-10-PCS; 2024-11-10)
PROC: 0ST40ZZ Resection of Lumbosacral Disc, Open Approach (ICD-10-PCS; 2024-11-10)
PROC: 0QH304Z Insertion of Internal Fixation Device into Left Pelvic Bone, Open Approach (ICD-10-PCS; 2024-11-10)
PROC: 0QH204Z Insertion of Internal Fixation Device into Right Pelvic Bone, Open Approach (ICD-10-PCS; 2024-11-10)
PROC: 8E0WXBZ Computer Assisted Procedure of Trunk Region (ICD-10-PCS; 2024-11-10)
PROC: 0QP004Z Removal of Internal Fixation Device from Lumbar Vertebra, Open Approach (ICD-10-PCS; 2024-11-10)
PROC: 0SG00AJ Fusion of Lumbar Vertebral Joint with Interbody Fusion Device, Posterior Approach, Anterior Column, Open Approach (ICD-10-PCS; principal; 2024-11-10 10:00)
DX: M48.062 Spinal stenosis, lumbar region with neurogenic claudication (principal); M48.56XA Collapsed vertebra, not elsewhere classified, lumbar region, initial encounter for fracture; M48.57XA Collapsed vertebra, not elsewhere classified, lumbosacral region, initial encounter for fracture; E11.9 Type 2 diabetes mellitus without complications; I10 Essential (primary) hypertension; J45.909 Unspecified asthma, uncomplicated; M47.26 Other spondylosis with radiculopathy, lumbar region; M51.26 Other intervertebral disc displacement, lumbar region; M47.27 Other spondylosis with radiculopathy, lumbosacral region; M48.07 Spinal stenosis, lumbosacral region; M51.16 Intervertebral disc disorders with radiculopathy, lumbar region; M51.17 Intervertebral disc disorders with radiculopathy, lumbosacral region; Z79.85 Long-term (current) use of injectable non-insulin antidiabetic drugs; Z87.891 Personal history of nicotine dependence; Z79.899 Other long term (current) drug therapy
CPT/HCPCS: 72100; 72131; 80048; 85025; 85027; 86891